=== PATIENT | female | born 1955 | race Caucasian/White ===

== ENCOUNTER 2022-12-27 05:18 | Outpatient (REF) | payer MEDICARE, SELFPAY ==
--- NOTE | ~2022-12-27 | XR_ITS ---
EXAMINATION: XR PELVIS CLINICAL INFORMATION: Pain. COMPARISON: None available. TECHNIQUE: 3 AP views of the pelvis. FINDINGS: There is mild bony demineralization. There is an intact right hip total arthroplasty, without hardware failure or loosening. There is an intact cerclage wire applied to the proximal right femoral shaft. No periprosthetic fracture is noted. The left acetabular joint space is well-maintained. The left femoral head is smooth. The bilateral sacroiliac joints are symmetric and well-maintained. The pubic symphysis is intact. There are pelvic phleboliths. There are incompletely characterized degenerative changes of the lower lumbar spine. XR/XR pelvis 1-2V IMPRESSION: 1. There is an intact right hip total arthroplasty, without hardware failure or loosening noted. 2. No unusual degenerative change is seen of the left hip.
== END 2022-12-27 05:19 | disposition home or self-care (01) ==
LOC: HO.HOSX 05:18
PROVIDERS: Visit Provider Orthopaedic Surgery
DX: M25.551 Pain in right hip (principal); M54.50 Low back pain, unspecified; Z79.899 Other long term (current) drug therapy
CPT/HCPCS: 72170; 99212

== ENCOUNTER 2022-12-27 08:11 | Outpatient (AMB) | payer MEDICARE, SELFPAY ==
--- NOTE | 2022-12-27 08:24 | MHC.OFFVIS ---
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 Pederson for an evaluation of right hip s/p WIL in October of 2021. Patient reports that she has no concerns, here for a yearly check. She states having back issues but is monitored with pain management. The patient was also evaluated by Dr. Camejo from nurse surgery at [facility]. She was told that if her symptoms worsen in the future she would likely need a lumbar fusion to correct her problem. Allergies scopolamine Allergy (Verified 12/27/22 08:27) dizzy, nausea Medication List - Last Reconciled 12/27/22 by Tom Pederson MD celecoxib 200 mg PO DAILY fluticasone propionate 50 mcg/actuation 1 spray intranasal DAILY methocarbamol 500 mg PO TID omeprazole 20 mg PO DAILY sertraline 25 mg PO DAILY sertraline 100 mg PO DAILY [facility] Surgical History (Updated 12/27/22 @ 08:29 by Karrie Monaco [facility]) History of left knee replacement History of right hip replacement History of shoulder surgery Social History Patient Tobacco Use Status: Never used Tobacco Current occupational status: retired Physical Exam Vital Signs: BMI result Body Mass Index 25.2 Const Other: Well-nourished well-developed very friendly female awake alert and oriented x3 in no acute distress Extrem Other: Bilateral lower extremity examination shows good capillary refill, no skin lesions noted, normal sensation light touch Right lower extremity examination shows that her surgical incision is well healed, no erythema, minimal discomfort with range of motion, no tenderness over her bursa Results Reviewed Results Reviewed: X-rays of the patient's right hip taken today show a total hip arthroplasty in good position with no signs of loosening, no acute bony abnormalities Assessment & Plan Assessment & Plan (1) Right hip pain: Code(s): M25.551 - Pain in right hip Plan Ms. Srivastava continues to do well after undergoing right total hip replacement surgery. She will continue with her home exercise program. She does know to take antibiotics before any dental work. She will contact me prior to her follow-up appointment in 6 months should any questions or concerns arise. I will also refer the patient to JANICE Dickerson from neurosurgery for further evaluation of her low back pain. Feel free to call me at any time should questions regarding her orthopedic management arise. I spent 22 minutes in reviewing the patient's records and imaging studies, seeing the patient and documenting in the medical record. Orders: Orders XR pelvis 1-2V Today M25.551 - Pain in right hip Referrals Neurosurgery Referral M54.50 - Low back pain, unspecified Coding Level of Care Code Est Pt Level 2 (98756) Diagnoses Right hip pain M25.551
[2022-12-27 08:26] VITALS: BMI 25.2
== END 2022-12-27 08:56 | disposition home or self-care (01) ==
PROVIDERS: PCP Internal Medicine; Visit Provider Orthopaedic Surgery
DX: M25.551 Pain in right hip (principal)
CPT/HCPCS: 99212

== ENCOUNTER 2023-06-13 09:26 | Outpatient (REF) | payer MEDICARE, SELFPAY ==
--- NOTE | ~2023-06-13 | XR_ITS ---
EXAMINATION: XR LUMBOSACRAL SPINE WITH OBLIQUES CLINICAL INFORMATION: Low back pain unspecified. COMPARISON: AP pelvis December 28, 2022. TECHNIQUE: AP, lateral neutral, flexion and extension views of the lumbar spine. FINDINGS: Levoscoliosis of the lumbar spine. Bones are diffusely demineralized. Degenerative changes in the bilateral sacroiliac joints with asymmetric sclerosis on the left. Facet arthritis in the mid to lower lumbar spine. Multilevel lumbar spondylosis with multilevel loss of disc space height and subchondral sclerosis most notable at L4-L5. Grade 1 anterolisthesis of L4 on L5 with flexion and extension. Mild grade 1 anterolisthesis of L5 on S1. Grade 2 retrolisthesis of L2 on L3 with advanced loss of disc space height and degenerative changes. XR/XR lumbar spine 4V min IMPRESSION: 1. Multilevel lumbar spondylosis most notable at L4-L5 and L2-L3. 2. Facet arthritis in the mid to lower lumbar spine. 3. Degenerative changes in the bilateral sacroiliac joints with asymmetric sclerosis on the left.
== END 2023-06-13 09:27 | disposition home or self-care (01) ==
LOC: HO.HOSX 09:26
PROVIDERS: Visit Provider Orthopaedic Surgery
DX: Z13.89 Encounter for screening for other disorder (principal)

== ENCOUNTER 2023-08-28 08:56 | Outpatient (AMB) | payer MEDICARE, SELFPAY ==
--- NOTE | 2023-08-28 08:59 | HO.SPINEOV ---
Intake Visit Reasons: second opinion for 3 level spine sx Intake Note: Ms. Srivastava is here today c/o Left lower back pain. Supervisor Laboratory Required: No Allergies scopolamine Allergy (Verified 08/28/23 09:04) dizzy, nausea Assessment & Plan Assessment & Plan (1) Degenerative scoliosis: Code(s): M41.50 - Other secondary scoliosis, site unspecified Category: Medical Plan Dear colleague, Thank you for referring Esha Gonzalez to our office today. 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 She reports that her pain recently exacerbated 2 weeks ago without an inciting incident. She states that her pain is severe in nature despite positional changes. She reports that nothing specifically worsens or exacerbates her pain. She reports no shooting pains down her bilateral lower extremities. She states that she has had back pain for the past 30 years. He has been much worse over the course of the last 2 years. She was previously evaluated by Dr. Grover at [facility] who told her that she may need a 3 level spinal fusion. She is currently taking Celebrex to help mitigate her pain alongside gabapentin. She is tried physical therapy without symptom relief, and has been to a chiropractor/engaged in acupuncture multiple times over the last few years. She is currently established with pain management to is scheduled to do a cortisone injection for her and september. She is weary of this because she has had multiple cortisone injections in the past that have not been helpful. PMH: History of right total knee, right total hip, and right bone spur removal of her shoulder. History of appendectomy, tonsillectomy, and oophorectomy. History of osteoporosis, seasonal allergies, GERD, depression. Social hx: Patient does not smoke, reports no substance use. Medications: Gabapentin, methocarbamol, fluticasone, Celebrex, omeprazole, sertraline. Allergies: Scopolamine. Physical exam: The patient has 5/5 strength in her upper and lower extremities. She has no sensational deficits. Her reflexes are 2+ intact. She ambulates with a somewhat antalgic gait and hunches over slightly. She changes position multiple times on exam from standing to sitting to lying down as she states she is in constant pain. (-) Harris's, (-) clonus. Imaging review: MRI of the lumbar spine completed at [facility] shows diffuse spondylosis of the lumbar spine. There is a grade 1 spondylolisthesis at L2-3, and severe central canal and foraminal stenosis at this level. There is severe central canal and foraminal stenosis at L3-4. There is severe collapse of the disc space causing severe central canal and foraminal stenosis, alongside a grade 2 spondylolisthesis at L4-5. X-ray imaging completed in office today shows a degenerative dextroscoliosis with the apex at L3. Redemonstrated spondylolisthesis as described an MRI impression. Impression: Esha Gonzalez is a pleasant 68-year-old female who comes in today with a chief complaint of low back pain that is worsening and severe in nature. She declines any shooting pains down her bilateral lower extremities. She reports this has been ongoing and worsening over the course of the last 2 years. She is failed all attempted conservative measures. After reviewing her history, physical, and imaging Dr. Espino offered the patient a scoliosis correction via lumbar fusion from L2-5. Specifically a Transkambin lumbar interbody fusion from L2-3, and an oblique lumbar interbody fusion from L3-4 and L4-5. The surgery was extensively reviewed with the patient, who is agreeable to proceed. She will need to stop her Celebrex 7 days before surgery. She also will need clearance from her primary care physician including an EKG. Esha Gonzalez was given risk and benefits of surgery including but not limited to infection, hematoma, nerve injury, durotomy, weakness, bowel/bladder injury, persistent pain, as well as the option to continue with conservative treatment and patient wishes to proceed with surgery. They are aware they should stop NSAIDs 7 days prior to surgery. All questions were answered to the best of our ability. If there is anything about this patients medical history that we have overlooked or concerns you have about us proceeding with surgery we would appreciate any input you can offer. Thank you for allowing us to care for your patient. The total time spent with this visit with this patient was 60 minutes reviewing history, physical exam, x-ray, MRI imaging review, and implementation of treatment plan or further diagnostic testing Stephon Espino MD,PhD [facility] Orders: Orders XR lumbar spine 4V min Today M54.50 - Low back pain, unspecified Coding Level of Care Code New Pt Level 5 (26787) Diagnoses Degenerative scoliosis M41.50
== END 2023-08-28 10:42 | disposition home or self-care (01) ==
PROVIDERS: PCP Internal Medicine; Visit Provider Physician Assistant
DX: M41.50 Other secondary scoliosis, site unspecified (principal)
CPT/HCPCS: 99205

== ENCOUNTER → 2023-08-28 08:56 | Outpatient (BNVA) | payer MEDICARE, SELFPAY | PROVIDERS: PCP Internal Medicine; Visit Provider Physician Assistant | DX: M47.816 Spondylosis without myelopathy or radiculopathy, lumbar region (principal); M48.061 Spinal stenosis, lumbar region without neurogenic claudication; M43.16 Spondylolisthesis, lumbar region; M41.50 Other secondary scoliosis, site unspecified | CPT/HCPCS: 72110; 99202 ==

== ENCOUNTER 2023-10-15 06:11 | Inpatient (IN) | payer MEDICARE, SELFPAY ==
[2023-10-01 10:52] VITALS: BP 148/85; PULSE 65; RESP 18; O2SAT 98; BMI 25.2
[2023-10-15] VITALS (37 sets, daily range): BP systolic 88–141; BP diastolic 35–78; PULSE 72–94; RESP 15–20; TEMP 36.2–36.8; O2SAT 94–100; BMI 25.8; BMI 27.6
--- NOTE | ~2023-10-15 | CT_ITS ---
EXAMINATION: CT ANGIOGRAM OF THE CHEST WITH AND WITHOUT CONTRAST (CT PULMONARY ANGIOGRAM FOR PE) CLINICAL INFORMATION: Reason for Exam hypoxia, dyspnea, postop COMPARISON: None available. TECHNIQUE: Prior to contrast administration, noncontrast localization images were obtained. Subsequently, multidetector volumetric imaging was performed from the thoracic inlet to below the diaphragms following the administration of 65 mL Omnipaque 350 intravenous contrast. No contrast reaction reported Sagittal, coronal, and MIP oblique sagittal reformatted images were obtained on the CT workstation, uploaded to PACS, and reviewed. This CT examination was performed using dose optimization techniques as appropriate, variously including the following: *Automated exposure control *Adjustment of mA and/or kV according to patient size (this includes techniques or standardized protocols for targeted exams where dose is matched to indication/reason for exam; i.e. extremities or head) *Use of iterative reconstruction technique Total exam dose-length product 91 mGy-cm FINDINGS: QUALITY OF STUDY/CONTRAST BOLUS: Satisfactory. PULMONARY ARTERIES: No pulmonary emboli. THORACIC AORTA: No aneurysm. LUNG: No focal consolidation, nodules or masses. PLEURA: No pleural effusion or pneumothorax. MEDIASTINUM: Normal heart size. No pericardial effusion. No hilar or mediastinal lymphadenopathy. No evidence of septal bowing or right heart strain. Hypoenhancing left inferior 1.3 cm thyroid nodule. CORONARY ARTERY CALCIFICATION: None visualized on this study. CHEST WALL/AXILLA: No axillary or internal mammary lymphadenopathy. OSSEOUS STRUCTURES: No acute or suspicious osseous abnormality. UPPER ABDOMEN: Unremarkable. No reflux of contrast into the hepatic veins to suggest elevated right heart pressures. CT/CT angio chest PE protocol IMPRESSION: 1. No pulmonary embolus. 2. Left inferior 1.3 cm thyroid nodule. Consider routine thyroid ultrasound for further evaluation if warranted. VTE: negative.
--- NOTE | ~2023-10-15 | FL_ITS ---
EXAMINATION: XR FLUOROSCOPY WITH IMAGES CLINICAL INFORMATION: L2-L3 Trans-Kambin, L3-L5 OLIF. COMPARISON: Lumbar spine radiographs 08/28/2023 TECHNIQUE: Fluoroscopy Supervised By: Dr. Dipak Espino Fluoroscopy Time: 3.58 minutes Cumulative Dose: 100.96 mGy-cm DAP: 34.245 Gy-cm2 Images: 8. FINDINGS: Eight images demonstrate placement of posterior spinal hardware. Please see Dr. Espino' note for complete details. FL/FL guidance in OR IMPRESSION: Fluoroscopy and spot films provided during lumbar spine surgery.
--- NOTE | ~2023-10-15 | CT_ITS ---
EXAMINATION: CT ABDOMEN AND PELVIS WITH CONTRAST CLINICAL INFORMATION: Recent surgery. Question of hemorrhage COMPARISON: CT chest same date. TECHNIQUE: Multidetector volumetric images were obtained from the superior aspect of the liver through the pubic symphysis following administration 85 mL of Omnipaque 350 intravenous contrast. Sagittal and coronal reformatted images were obtained on the technologist's workstation. Oral contrast: No This CT examination was performed using dose optimization techniques as appropriate, variously including the following: *Automated exposure control *Adjustment of mA and/or kV according to patient size (this includes techniques or standardized protocols for targeted exams where dose is matched to indication/reason for exam; i.e. extremities or head) *Use of iterative reconstruction technique DLP: 411 mGy-cm FINDINGS: LUNG BASES: Minor bibasilar atelectatic change LIVER, GALLBLADDER, AND BILIARY TREE: The left lobe of the liver is transverse and extends into the left upper quadrant. No focal hepatic mass. There is no intrahepatic biliary dilatation. The gallbladder is unremarkable with no evidence of radiopaque gallstones, gallbladder wall thickening, or obvious pericholecystic inflammatory changes. PANCREAS: Unremarkable. SPLEEN: Unremarkable. ADRENAL GLANDS: Unremarkable. KIDNEYS AND URETERS: The kidneys are normal in size, shape, and attenuation. No hydronephrosis, hydroureter, or calculi seen. No perinephric stranding. BLADDER: Unremarkable. GASTROINTESTINAL TRACT: Moderate stool burden. No bowel obstruction or right or left lower quadrant inflammatory change. Likely postprocedural ileus in the left mid abdomen. ABDOMINAL WALL: Abnormal. There is extensive subcutaneous air is seen in the central and left anterior abdominal wall extending into the adjacent musculature likely due to the patient's recent lumbar spine procedure. There is some adjacent soft tissue stranding and fluid, likely postsurgical but I do not see an organizing hematoma or drainable collection. A few pockets of air are seen in the right mid to lower abdomen near the psoas musculature, likely postprocedural. LYMPH NODES: Normal. VASCULAR: The aorta is atherosclerotic but nonaneurysmal. PELVIC VISCERA: Unremarkable. OSSEOUS STRUCTURES: Extensive streak artifact from the lumbar spine hardware. The patient had a procedure in the OR for the placement of surgical hardware in the lumbar spine on 10/15/2023. There is spondylitic degenerative change in the lower thoracic and upper lumbar spine. No fracture. CT/CT abdomen pelvis w IV con IMPRESSION: Extensive postsurgical change in the left anterior subcutaneous tissues and adjacent musculature with likely reactive ileus however I do not see evidence of a retroperitoneal bleed or drainable collection. Fleischner guidelines were followed.
[2023-10-15] MEDS: methocarbamoL 750 MG TABLET PO ×2 (06:24→15:00)
[2023-10-15] MEDS: Lactated Ringers 1,000 ML 100 ML IVCONT (06:43)
--- NOTE | 2023-10-15 07:22 | PC.NURSE ---
Addendum entered by Doretha Galicia 10/15/23 07:25: EDIT: (does not like how it makes her feel). Original Note: Patient in preop. Dr. Espino at bedside. Made aware that patient took 100mg Gabapentin PO at home this AM, preop ordered dose held. Dr. Bryan at bedside. Made aware that patient wakes up from anesthesia extremley weepy, history of PONV, and requests not to have any Percocet ordered (does not like how it makes her feel0
--- NOTE | 2023-10-15 07:25 | P.CONAN_ITS ---
Documented by User: Sofi Izquierdo NP 10/11/23 12:15 HPI - Anesthesia Eval Consult details Narrative: 68yo F for L2-3 Transkambin Lumbar Interbody Fusion, L3-4,L4-5 Oblique Lumbar Interbody Fusion Medically optimized per PCP [facility] Active Problems Active Problems: All Active Problems Degenerative scoliosis (Acute) Low back pain (Acute) Right hip pain (Acute) Past Medical History Medical History (Updated 10/01/23 @ 10:28 by Radha Espinoza RN) Osteopenia Asthma Elevated cholesterol GERD (gastroesophageal reflux disease) Depression DJD (degenerative joint disease) Anxiety Back pain Surgical History Surgical History History of carpal tunnel surgery of right wrist Hx of unilateral oophorectomy H/O colonoscopy Hx of breast biopsy Hx of appendectomy Hx of tonsillectomy History of esophagogastroduodenoscopy (EGD) History of left knee replacement History of shoulder surgery History of right hip replacement Social History Social History (Updated 12/27/22 @ 08:29 by ELISABETH Patel) Are you a primary childcare center administrator to a significant other at home: No Do you presently have visiting nurse or other home services: No Patient Tobacco Use Status: Never used Tobacco Use of substances other than those prescribed or required for medical reasons: No Have you been hit, kicked, punched, or otherwise hurt by someone within the past year? If so, by whom?: No Are you DNR?: No Advance Directives: No Advance Directives Information Provided: Yes Advance Directives on File: No Recently lost weight without trying: No Eating poorly because of decreased appetite: No Nutrition Risks: No Nutritional Risk Patient : No : No Poor oral hygiene: Yes (crowns bilaterally) Current occupational status: retired [employer] Allergies Allergy/AdvReac Type Severity Reaction Status Date / Time scopolamine Allergy Intermediate dizzy, Verified 10/15/23 06:10 nausea Home Medications ?Medication ?Instructions ?Recorded ?Confirmed ?Last Taken ?Type omeprazole 20 mg capsule,delayed 20 mg PO DAILY 12/27/22 10/15/23 10/15/23 History release sertraline 100 mg tablet 100 mg PO DAILY 12/27/22 10/15/23 10/15/23 History sertraline 25 mg tablet 25 mg PO DAILY 12/27/22 10/15/23 10/15/23 History gabapentin 100 mg capsule 200 mg PO TID 09/27/23 10/15/23 10/15/23 History 100 mg celecoxib 200 mg capsule 200 mg PO DAILY 10/15/23 10/15/23 10/08/23 History Exam Height,Weight and Vital Signs: Height 5 ft 4 in Weight 66.678 kg Last Vital Signs Pulse 65 10/01/23 10:52 Resp 18 10/01/23 10:52 BP 148/85 H 10/01/23 10:52 Pulse Ox 98 10/01/23 10:52 O2 Del Method Room Air 10/01/23 10:52 Pertinent Lab Results Pertinent Lab Results: Laboratory Tests 10/01/23 11:21 Blood Type B Positive Antibody Screen NEGATIVE CBC and BMP 09/2023 from outside facility WNL Narrative Narrative: EKG 09/2023 from outside facility NSR Assessment and Plan Assessment Anesthesia Assessment: Chart Reviewed Documented by User: Hailey Bryan DO 10/15/23 07:28 HPI - Anesthesia Eval Consult details Narrative: 68yo F for L2-3 Transkambin Lumbar Interbody Fusion, L3-4,L4-5 Oblique Lumbar Interbody Fusion Medically optimized per PCP PONV. Also wakes up weeping after anesthesia. [facility] Past Medical History Medical History (Updated 10/01/23 @ 10:28 by Radha Espinoza RN) Osteopenia Asthma Elevated cholesterol GERD (gastroesophageal reflux disease) Depression DJD (degenerative joint disease) Anxiety Back pain Family History Family history of problems with anesthesia: No Surgical History Surgical History History of carpal tunnel surgery of right wrist Hx of unilateral oophorectomy H/O colonoscopy Hx of breast biopsy Hx of appendectomy Hx of tonsillectomy History of esophagogastroduodenoscopy (EGD) History of left knee replacement History of shoulder surgery History of right hip replacement History of Problems with Anesthesia: Yes (PONV) Social History Social History (Updated 12/27/22 @ 08:29 by Karrie Monaco [facility]) Are you a primary childcare center administrator to a significant other at home: No Do you presently have visiting nurse or other home services: No Patient Tobacco Use Status: Never used Tobacco Use of substances other than those prescribed or required for medical reasons: No Have you been hit, kicked, punched, or otherwise hurt by someone within the past year? If so, by whom?: No Are you DNR?: No Advance Directives: No Advance Directives Information Provided: Yes Advance Directives on File: No Recently lost weight without trying: No Eating poorly because of decreased appetite: No Nutrition Risks: No Nutritional Risk Patient : No : No Poor oral hygiene: Yes (crowns bilaterally) Current occupational status: retired Meds Allergies Allergy/AdvReac Type Severity Reaction Status Date / Time scopolamine Allergy Intermediate dizzy, Verified 10/15/23 06:10 nausea Home Medications ?Medication ?Instructions ?Recorded ?Confirmed ?Last Taken ?Type omeprazole 20 mg capsule,delayed 20 mg PO DAILY 12/27/22 10/15/23 10/15/23 History release sertraline 100 mg tablet 100 mg PO DAILY 12/27/22 10/15/23 10/15/23 History sertraline 25 mg tablet 25 mg PO DAILY 12/27/22 10/15/23 10/15/23 History gabapentin 100 mg capsule 200 mg PO TID 09/27/23 10/15/23 10/15/23 History 100 mg celecoxib 200 mg capsule 200 mg PO DAILY 10/15/23 10/15/23 10/08/23 History Exam Exam Date and Time: October 15, 2023 0722 Height,Weight and Vital Signs: Height 5 ft 4 in Weight 66.678 kg Last Vital Signs Pulse 65 10/01/23 10:52 Resp 18 10/01/23 10:52 BP 148/85 H 10/01/23 10:52 Pulse Ox 98 10/01/23 10:52 O2 Del Method Room Air 10/01/23 10:52 Height 5 ft 4 in Weight 68.13 kg Vital Signs Pulse Rate 65 10/01/23 10:52 Respiratory Rate 18 10/01/23 10:52 Blood Pressure 148/85 H 10/01/23 10:52 Pulse Oximetry 98 10/01/23 10:52 Oxygen Delivery Method Room Air 10/01/23 10:52 Temperature 97.1 F 10/15/23 06:18 Pulse Rate 73 10/15/23 06:18 Respiratory Rate 16 10/15/23 06:18 Blood Pressure 141/78 H 10/15/23 06:18 Pulse Oximetry 99 10/15/23 06:18 Oxygen Delivery Method Room Air 10/15/23 06:18 Airway Mallampati Class: I TM Dist: >3cm Neck ROM: Full Loose/Missing/Broken Teeth: No (patient denies any loose or broken teeth) Heart: S1S2 Lungs: CTAB Assessment and Plan Assessment Anesthesia Assessment: Anesthesia Plan Discussed and Chart Reviewed Final Anesthetic Review Family History of Problems with Anesthesia: No History of Problems with Anesthesia: Yes (PONV) NPO: Yes ASA Class: II Final Preanesthetic Review: No Changes in Pt Med Stat, Meds/Allgs Chart Reviewed, Consent Obtained/Reviewed and Anes Risks/Benef Reviewed Patient Risk: Low Procedure Risk: Intermediate Anesthetic Plan Anesthetic Plan: GA and Agree w/ Assess. and Plan Disposition: Standard PACU
--- NOTE | 2023-10-15 07:25 | MHC.SHP ---
Pre-Procedural Eval Section A - 24 Hr Update-Section A only Date of Service: 10/15/23 The patient is an INPATIENT: No Changes since office visit: No Cold of Flu in the past 2 weeks, No New Medical Problems, No Changes in Medication and No Patient answered all questions The patient has been examined within 24 hours of the surgical procedure. The History & Physical has been completed within 30 days and I have reviewed it.: No Section B - Complete if H&P > 30 days Chief Complaint: s/p L2-5 lumbar fusion Allergies: Allergies Allergy/AdvReac Type Severity Reaction Status Date / Time scopolamine Allergy Intermediate dizzy, Verified 10/15/23 06:10 nausea Review of Systems Sugical H&P ROS: Negative: Constitution, Cardiovascular, Respiratory, Neurological, Psychiatric, Hem-Onc, Allergic/Immunologic, Gastrointestinal, Genitourinary, Musculoskeletal, Integumentary, Endocrine and Eyes/Ears/Nose/Throat Exam Surgical H&P Exam: Normal: HEENT, Normal: Heart, Normal: Lungs, Normal: Extremities, Normal: Abdomen, Normal: Skin and Normal: Neurological (patient awake, alert, oriented x 3 ) Plan Diagnosis/Plan: Unchanged L2-5 oblique/transkambin interbody fusion Time Spent With Patient Time: Total time managing care of this patient today _5___ minutes.
--- NOTE | 2023-10-15 12:23 | W.PM.OPN ---
Operative Note Operative Note Date of Service: 10/15/23 Narrative: Preop Diagnosis: 1.) Lumbar degenerative scoliosis and L4-5 spondylolisthesis 2.) Chronic back pain Procedure: 1) L2-3, L3-4 and L4-5 discectomy, arthrodesis and implantation cage through an anterolateral, retroperitoneal approach 2) L2-L5 posterior instrumented fusion 3) allograft 4) injection of 10 cc of Exparel at the bilateral L3 transverse process for a muscular erector spinae block and additional Exparel in paravertebral tissue for postop management 5) neuro monitoring Consent Informed Consent was obtained for this operation. I have explained the nature, purpose and benefits of the operation. I have discussed the risks and benefit of the operation including possible complications or adverse events with patient/family. Alternative(s) were discussed with the patient with their relative benefits and risks as well as the consequences of not accepting the operation were included in obtaining consent. Surgeon: STANLEY GREGORY MD, PHD Procedure Assisted By: christopher Dickerson Description of Procedure This 68-year-old female suffering from chronic back pain due to lumbar degenerative scoliosis. The patient was offered an oblique lumbar interbody fusion L2-3, L3-4 and L4-5. The procedure complications were explained. The patient was consented. The patient was brought to the operating room and endotracheally intubated. The patient was turned in a lateral position with the left side up. Prep and drape was done followed by timeout. A small incision was made in the left lower abdominal quadrant. The muscle fascia was opened after which the 3 muscle layer was split to enter the retroperitoneal space. Dilators were docked in the anterior one third of the L4-5 disc space followed by a retractor. The retractor was opened. The L4-5 disc space was exposed. An annulotomy was done after which an elevator [place] was used to release the disc material from its endplates and to perforate the contralateral side. A partial discectomy was done. An 8 mm, height trial implant was inserted. The discectomy was completed. The endplates were prepared. An 45 x 8 mm with serum degree lordosis 4 web cage filled with allograft was inserted into the disc space under fluoroscopic guidance. This resulted in amish of the disc height and partial reduction of the spondylolisthesis. The retractor was removed. I tissue from the cage and during that maneuver an arterial bleeding occurred. I enlarged the incision and I was able to locate the bleeder, distal from L4 foramen and must be a segmental artery. I was able to coagulate the artery. I covered it with Surgiflo, Gelfoam and [place] Seal. Dr. Wheatley, vascular surgeons had a peak at the bleeding site and agreed that no further maneuvers were required. Then attention was turned to the L3-4 disc space. Dilators were docked in the anterior 1/3 followed by a retractor. At initial diskectomy was done followed by releasing of the disc material from the endplates with an elevator [place]. A thorough diskectomy was done. An 8 mm and a 10 mm trial implant or used. More diskectomy was done after which a 45 x 10 and 6 degree lordosis 4 web cage was inserted into the disc space under fluoroscopic guidance. The final level was L2-L3. I made a separate incision. I went in between the 11th and 12th rib and entered the retroperitoneal space to end up at the L2-3 disc space. Sequential dilators were inserted followed by a retractor. The disc space was exposed. An annulotomy was done followed by release of the disc material from the endplates with an elevator [place]rales. An 8 mm trial was inserted. The diskectomy was completed and the endplates were prepared after which 45 x 8 mm NC 0 degree lordosis 4 web cage was inserted into the disc space under fluoroscopic guidance. The degenerative scoliosis curve in the coronal plane was near completely corrected. Hemostasis was done. The incisions were closed in 2 layers. Steri-Strips used to approximate incisions. An OpSite with Tegaderm was used to cover the incisions. This marked first part of the procedure. The patient was turned prone on the Jim spine table. 2C arms were installed for fluoroscopy. Prep and drape was done followed by a second timeout. A total of 3 paramedian incisions made bilaterally (total 6) lateral from the L2-L5 pedicles bilaterally.. The muscle fascia was opened after which the muscle layer was split bluntly to expose the posterolateral gutter. The following steps were taken. A pediguard tap was used to create a transpedicular trajectory into the vertebral body. A K wire was placed. A specially designed instrument was advanced over the K wire to decorticate the posterolateral gutter in preparation for the posterolateral fusion. A pedicle screw was advanced over the K wire and the K wire was removed. The steps were done for the bilateral L2, L3, L4 and L5 pedicles. A total of 8 screws were placed with a diameter of 5.5 x 40 mm in L2 pedicles, a 5.5 x 45 mm in the bilateral L3 and L4 pedicles and a 6.5 x 45 mm in the bilateral L5 pedicles. Pedicle screws were connected with 110 mm zonia bilaterally and locked down with locking caps. The extension towers were removed. The posterolateral gutter was filled with allograft to complete the posterolateral L2-L5 fusion Hemostasis was done and the incision was closed in 2 layers. Steri-Strips were used to approximate the incision. An OpSite were taken and was used to cover the incision. All sponge and needle counts were correct. Patient was extubated and transferred in stable is to recovery room. The insertion of the pedicle screws was done with the aid of neuro monitoring and no abnormalities were seen and stimulation of the screws showed values of above 20 mA. Anesthesia: General Estimated Blood Loss (ml): 450 mL Duration of Surgery: 4hr 20 min Complications: None Postoperative Plan: Admit to inpatient for observation
[2023-10-15] MEDS: HYDROmorphone HCl 0.5 MG/0.5 ML SYRINGE IVPUSH ×3 (13:34→16:53)
[2023-10-15] MEDS: Haloperidol Lactate 5 MG/ML VIAL IVPUSH (13:39)
[2023-10-15] MEDS: Gabapentin 100 MG CAPSULE 200 MG PO ×2 (15:14→20:03)
[2023-10-15] MEDS: oxyCODONE HCl Immed Release 5 MG TABLET PO (15:53)
[2023-10-15] MEDS: Acetaminophen 1,000 MG/100 ML PIGGYBACK 400 MG IV ×2 (16:57→22:28)
[2023-10-15] MEDS: ceFAZolin Sodium/Dextrose,Iso 2 GM/50 ML PIGGYBACK IV ×2 (18:25→23:45)
--- NOTE | 2023-10-15 18:51 | PHA.MEDREC ---
Pharmacy Consult ? Medication Reconciliation Pharmacy has completed the medication reconciliation. Spoke to patient to confirm med list. patient says she stopped celebrex 200 mg daily. she also stated she some times takes Gabapentin 100mg bid and 200mg at bedtime.
[2023-10-15] MEDS: Docusate Sodium 100 MG CAPSULE PO (20:04)
--- NOTE | 2023-10-15 20:30 | PC.NURSE ---
This RN assumed care at 1900, Pt s/p L2-L5 lumbar fusion today. Lower back dressing, & left lower abd x2 Dsg, all D/I. BSx4 hypoactive throughout abd round, slight guarding to left side. Per Pt pain is more in the front left site, than back, 8/10 pain at the moment. Meds given per JUL. Respirations even an unlabored. Pt ambulated with walker, 1x assist to the bathroom and voided, steady gait noted. No apparent distress noted. Call monet with in reach.
[2023-10-15] MEDS: HYDROmorphone HCl 1 MG/ML SYRINGE IVPUSH (20:41)
[2023-10-15] MEDS: ondansetron HCL 4 MG/2 ML VIAL IVPUSH (20:42)
[2023-10-16] VITALS (9 sets, daily range): BP systolic 100–144; BP diastolic 48–61; PULSE 75–81; RESP 16–21; TEMP 36–36.3; O2SAT 91–99
--- NOTE | 2023-10-16 | ECG_ITS ---
Test Reason : Syncope Blood Pressure : / mmHG Vent. Rate : 073 BPM Atrial Rate : 073 BPM P-R Int : 156 ms QRS Dur : 078 ms QT Int : 400 ms P-R-T Axes : 063 034 070 degrees QTc Int : 440 ms Normal sinus rhythm Normal ECG When compared with ECG of 16-OCT-2023 11:32, No significant change was found Referred By: Bridger Moreira Electronically Signed By:LEANNE PETERSON
[2023-10-16] MEDS: oxyCODONE HCl Immed Release 5 MG TABLET 10 MG PO (00:40)
[2023-10-16] MEDS: HYDROmorphone HCl 1 MG/ML SYRINGE IVPUSH ×6 (02:12→21:09)
[2023-10-16] MEDS: Acetaminophen 1,000 MG/100 ML PIGGYBACK 400 MG IV ×4 (04:22→22:51)
[2023-10-16] MEDS: ondansetron HCL 4 MG/2 ML VIAL IVPUSH ×2 (04:57→14:11)
[2023-10-16] MEDS: ceFAZolin Sodium/Dextrose,Iso 2 GM/50 ML PIGGYBACK IV (05:36)
--- NOTE | 2023-10-16 07:35 | HO.NEURO.PN ---
Neurosurgery Operative Note Date of Service: 10/16/23 Narrative: POD: 1 Procedure: L2-5 OLIF Esha Gonzalez was seen sitting upright in bed on this morning. She states that she has been up out of bed, utilizing the bathroom, and eating a regular diet. She reports she was in quite a bit of back pain last night, but denies any shooting leg pains at this time. Her back pain has been well controlled with Dilaudid per nursing report. Patient states this medication works very well. States the Oxycodone did not help. She asked several questions regarding her operation and post-operative course which we answered to the best of our ability. Afebrile, vital signs stable. Full strength 5/5 LE. Back dressings have some staining without signs of hematoma. No active sanguineous drainage. Area is dry. Plan: Esha Gonzalez is POD:1 s/p L2-5 OLIF. She had quite a bit of pain last night, however despite this she has been up out of bed ambulating to the bathroom and utilizing her walker as best she can. She is tolerating a diet and otherwise doing well. No morton. Patient will remain on for continued surgical site monitoring, pain management, and further evaluation. Stephon Espino MD,PhD [facility]
[2023-10-16] MEDS: Docusate Sodium 100 MG CAPSULE PO ×2 (07:53→20:04)
[2023-10-16] MEDS: Sertraline HCL 25 MG TABLET PO (07:53)
[2023-10-16] MEDS: Sertraline HCL 100 MG TABLET PO (07:53)
[2023-10-16] MEDS: Omeprazole 20 MG CAPSULE.DR PO (07:53)
[2023-10-16] MEDS: Gabapentin 100 MG CAPSULE 200 MG PO ×3 (07:53→20:04)
[2023-10-16] MEDS: HYDROmorphone HCl 2 MG TABLET 1 MG PO (07:54)
--- NOTE | 2023-10-16 10:05 | HO.POSTANES ---
Post Anesthesia Evaluation Post Anesthesia Evaluation Date of Service: 10/16/23 Vital Signs: Vital Signs Temp Pulse Resp BP Pulse Ox O2 Del Method 10/16/23 08:00 96.8 F 77 18 100/52 L 91 L Room Air 10/16/23 03:39 97.1 F 79 16 108/53 L 93 Room Air 10/15/23 23:46 97.8 F 72 16 104/55 L 100 Room Air Anesthesia: General Endotracheal-GETA Mental Status: Awake Pain Control: Satisfactory Nausea/Vomiting: None Hydration: Adequate Anesthesia-Related Issues: No Anes. Related Issues
--- NOTE | 2023-10-16 10:54 | MHC.CM.PN ---
pt lives with is independent has a ride home will not need servies when dcd dc plan home no servies
[2023-10-16 11:32] LABS: Glucose, Whole Blood 136 mg/dL (60-115)
[2023-10-16 11:43] LABS: MANUAL DIFF FLAG NO
[2023-10-16 11:47] LABS: Basophils Percent Auto 0.3 % (0-2); Eosinophils Percent Auto 0.2 % (0-4); Hematocrit 27.7 % (37.0-47.0); Hemoglobin 9.5 g/dl (12.0-16.0); Imm Gran Abs Auto 0.02 X10*3/uL (0.00-0.03); Imm Gran Pct Auto 0.3 % (0.0-0.4); Lymphocytes Absolute Auto 1.3 X10*3/uL (1.2-4.9); Lymphocytes Percent Auto 20.8 % (20-40); Mean Corpuscular HGB Conc 34.3 g/dl (31.0-35.0); Mean Corpuscular Hemoglobin 31.6 pg (27.0-33.0); Mean Platelet Volume 8.3 fL (9.4-12.3); Monocytes Absolute Auto 0.5 X10*3/uL (0.1-1.2); Monocytes Percent Auto 8.3 % (2-11); Neutrophils Absolute Auto 4.3 x10*3/uL (2.0-8.3); Neutrophils Percent Auto 70.1 % (45-73); Platelet Count 161 X10*3/uL (160-400); Red Blood Count 3.01 X10*6/uL (4.20-5.50); Red Cell Distribution Width 12.7 % (11.0-16.0); White Blood Count 6.1 X10*3/uL (4.8-10.8)
[2023-10-16 11:56] LABS: D Dimer High Sensitivity 883 NG/ML
[2023-10-16 11:58] LABS: Anion Gap 12 (12-20); Blood Urea Nitrogen 10 mg/dL (9-16); Calcium 8.5 mg/dL (8.4-10.2); Carbon Dioxide 26 mmol/L (22-29); Chloride 96 mmol/L (96-108); Creatinine Clr Calc Pharmacy 78.6; Estimated Glomerular Filt Rate > 60; Glucose Random 169 mg/dL (60-115); Potassium 4.5 mmol/L (3.3-5.1); Sodium 129 mmol/L (135-145)
[2023-10-16] MEDS: Albuterol/Iprat 2.5/0.5MG 3 ML AMPUL.NEB INHALE (11:59)
[2023-10-16 12:05] LABS: B Type Natriuretic Peptide 39 pg/mL (<100)
[2023-10-16] MEDS: iohexoL 350 MG/ML 75 ML INFUS..BTL 65 ML IV (13:51)
--- NOTE | 2023-10-16 14:32 | P.CONHOSP_ITS ---
History of Present Illness Data of Consult Service Date: 10/16/23 Primary Care Provider: JANICE Juárez [facility] Reason for consult: syncope 68yo F with lumbar degenerative scoliosis and L4-5 spondylolisthesis who underwent L2-L5 posterior fusion yesterday (10/15/23) who has been complaining of severe postoperative pain and then had a 5-second witnessed syncopal episode in the bathroom with immediate return of consciousness. An WRECKING SUPERVISOR was called. She was transferred to her bed and complained of dyspnea. She was hypoxic to the low 80s and placed on Oxymask . BP was 114/61 and pulse 84. POC BG was normal. She was given 250cc of NS and an albuterol neb. She endorses a history of postviral asthma attacks. She was weaned off O2. She denies any chest pain. No cough. EKG showed NSR with rate of 73 and no ischemic changes. D-dimer elevated to 883. Also Hb 9.5 with MCV 92. Na 129. BNP 39. Review of Systems 2 Review of Systems: Yes all other systems are reviewed and are negative [facility] Medical History Osteopenia Asthma Elevated cholesterol GERD (gastroesophageal reflux disease) Depression DJD (degenerative joint disease) Anxiety Back pain Surgical History History of carpal tunnel surgery of right wrist Hx of unilateral oophorectomy H/O colonoscopy Hx of breast biopsy Hx of appendectomy Hx of tonsillectomy History of esophagogastroduodenoscopy (EGD) History of left knee replacement History of shoulder surgery History of right hip replacement Social History Household Members: Spouse Housing: House Are you a primary date night caregiver to a significant other at home: No Do you presently have visiting nurse or other home services: No Patient Tobacco Use Status: Never used Tobacco Use of substances other than those prescribed or required for medical reasons: No Currently Displaying Signs/Symptoms of Drug Intoxication Withdrawal: No Have you been hit, kicked, punched, or otherwise hurt by someone within the past year? If so, by whom?: No Do you feel safe in your current relationship?: Yes Is there a partner from a previous relationship who is making you feel unsafe now?: No Jainism Healthcare Practices: Yazidism Are you DNR?: No Advance Directives: No Advance Directives Information Provided: Yes Advance Directives on File: No Recently lost weight without trying: No Eating poorly because of decreased appetite: No Nutrition Risks: No Nutritional Risk Patient : No : No Poor oral hygiene: No service: No Current occupational status: retired Meds Allergies Allergy/AdvReac Type Severity Reaction Status Date / Time scopolamine Allergy Intermediate dizzy, Verified 10/15/23 06:10 nausea Active Medications: Current Medications Docusate Sodium (Docusate Sodium 100 Mg Capsule) 100 mg PO BID [facility] Last Admin: 10/16/23 07:53 Dose: 100 mg Gabapentin (Gabapentin 100 Mg Capsule) 200 mg PO TID [facility] Last Admin: 10/16/23 07:53 Dose: 200 mg Hydromorphone HCl (Hydromorphone Hcl 1 Mg/Ml Syringe) 1 mg IVPUSH Q3H PRN; Protocol PRN Reason: Pain, Severe (Pain Scale 7-10) Last Admin: 10/16/23 14:12 Dose: 1 mg Acetaminophen (Ofirmev) 1,000 mg in 100 mls @ 400 mls/hr IV Q6H [facility] Last Infusion: 10/16/23 11:18 Dose: Infused Methocarbamol (Methocarbamol 750 Mg Tablet) 750 mg PO TID PRN PRN Reason: Muscle Spasm Last Admin: 10/15/23 15:00 Dose: 750 mg Omeprazole (Omeprazole 20 Mg Capsule.Dr) 20 mg PO DAILY [facility] Last Admin: 10/16/23 07:53 Dose: 20 mg Ondansetron HCl (Ondansetron Hcl 4 Mg/2 Ml Vial) 4 mg IVPUSH Q8H PRN PRN Reason: Nausea and Vomiting Last Admin: 10/16/23 14:11 Dose: 4 mg Sertraline HCl (Sertraline Hcl 100 Mg Tablet) 100 mg PO DAILY [facility] Last Admin: 10/16/23 07:53 Dose: 100 mg Sertraline HCl (Sertraline Hcl 25 Mg Tablet) 25 mg PO DAILY [facility] Last Admin: 10/16/23 07:53 Dose: 25 mg Home Medications ?Medication ?Instructions ?Recorded ?Confirmed ?Last Taken ?Type omeprazole 20 mg capsule,delayed 20 mg PO DAILY@0630 12/27/22 10/15/23 10/15/23 History release sertraline 100 mg tablet 100 mg PO DAILY 12/27/22 10/15/23 10/15/23 History sertraline 25 mg tablet 25 mg PO DAILY 12/27/22 10/15/23 10/15/23 History gabapentin 100 mg capsule 200 mg PO TID 09/27/23 10/15/23 10/15/23 History 100 mg atorvastatin 20 mg tablet 20 mg PO DAILY 10/15/23 10/15/23 10/15/23 History Physical Exam 2 Vital Signs and Narrative: Vital Signs: Last Vital Signs Temp 96.8 F 10/16/23 08:00 Pulse 81 10/16/23 12:05 Resp 20 10/16/23 12:05 BP 116/56 L 10/16/23 11:54 Pulse Ox 98 10/16/23 11:54 O2 Del Method Room Air 10/16/23 11:54 O2 Flow Rate 6 10/16/23 11:27 BMI result Body Mass Index 27.6 Results Labs 10/16/23 11:39 10/16/23 11:39 Labs: Laboratory Results - last 24 hr 10/01/23 10/16/23 10/16/23 11:21 11:28 11:39 MCV 92.0 MCH 31.6 MCHC 34.3 RDW 12.7 Plt Count 161 MPV 8.3 L Immature Gran % (Auto) 0.3 Neut % (Auto) 70.1 Lymph % (Auto) 20.8 [place] % (Auto) 8.3 Eos % (Auto) 0.2 Baso % (Auto) 0.3 Lymph # (Auto) 1.3 [place] # (Auto) 0.5 Eos # (Auto) 0.0 Baso # (Auto) 0.0 Abs Immat Gran (auto) 0.02 Absolute Neuts (auto) 4.3 Absolute Nucleated RBC 0.000 Nucleated RBC % (auto) 0.0 D-Dimer High Sensitivty 883 Anion Gap 12 Estim Creat Clear Calc 78.6 Estimated GFR > 60 POC Glucose 136 H Random Glucose 169 H Calcium 8.5 B-Natriuretic Peptide 39 Crossmatch See Detail Assessment and Plan (1) Syncope: Status: Acute Plan 68yo F who is POD#1 from L2-L5 posterior fusion yesterday and had a brief witnessed syncopal episode with immediate return of consciousness. WRECKING SUPERVISOR was called. She was transiently hypoxic and complains of dyspnea. syncope - likely vasovagal; was given 250 mL normal saline; continue to monitor clinically dyspnea - transiently hypoxic and D-dimer high, though this could be due to postoperative state; obtained CTA, which was negative for PE. Pt thinks she had a brief asthma flare but I think it was more anxiety than anything else. hypoNa - recheck Na in AM; could be SIADH from pain; appears euvolemic; if worsens, may need to fluid-restrict and workup with urine studies normocytic anemia - recheck H+H in AM along with iron studies/B12/FA postop pain - continue IV APAP, prn IV hydromorphone + prn methocarbamol chronic pain - continue gabapentin mood disorder - continue sertraline VTE ppx - SCDs Thank you for this consultation. We will continue to follow the patient while they are admitted to your service.
[2023-10-16] MEDS: methocarbamoL 750 MG TABLET PO (15:43)
[2023-10-17] VITALS (10 sets, daily range): BP systolic 98–123; BP diastolic 53–59; PULSE 81–84; RESP 16–20; TEMP 36–36.4; O2SAT 92–97
[2023-10-17] MEDS: ondansetron HCL 4 MG/2 ML VIAL IVPUSH ×2 (01:09→09:24)
[2023-10-17] MEDS: methocarbamoL 750 MG TABLET PO ×3 (03:07→20:06)
[2023-10-17] MEDS: Acetaminophen 1,000 MG/100 ML PIGGYBACK 400 MG IV ×2 (04:53→12:02)
[2023-10-17 07:12] LABS: Hematocrit 25.5 % (37.0-47.0); Hemoglobin 8.5 g/dl (12.0-16.0); Mean Corpuscular HGB Conc 33.3 g/dl (31.0-35.0); Mean Corpuscular Hemoglobin 31.1 pg (27.0-33.0); Mean Corpuscular Volume 93.4 fL (80.0-98.0); Mean Platelet Volume 9.1 fL (9.4-12.3); Platelet Count 155 X10*3/uL (160-400); Red Blood Count 2.73 X10*6/uL (4.20-5.50); Red Cell Distribution Width 12.9 % (11.0-16.0); White Blood Count 5.3 X10*3/uL (4.8-10.8)
[2023-10-17 07:13] LABS: Immature Retic Fraction 14.2 % (3.0-15.9); Reticulocyte Percent 2.4 % (0.5-1.8); Reticulocytes Absolute 0.065 X10*6/uL (0.026-0.095)
[2023-10-17 07:30] LABS: Anion Gap 9 (12-20); Blood Urea Nitrogen 7 mg/dL (9-16); Calcium 9.3 mg/dL (8.4-10.2); Carbon Dioxide 30 mmol/L (22-29); Chloride 99 mmol/L (96-108); Creatinine Clr Calc Pharmacy 81.1; Estimated Glomerular Filt Rate > 60; Glucose Random 139 mg/dL (60-115); Iron 8 mcg/dL (30-160); Lactate Dehydrogenase 231 U/L (122-220); Percent Iron Saturation 4 % (15-50); Potassium 4.6 mmol/L (3.3-5.1); Sodium 133 mmol/L (135-145); Total Iron Binding Capacity 204 mcg/dL (228-428); Unsaturated Iron Binding 196 ug/dL
[2023-10-17 08:02] LABS: Vitamin B12 597 pg/mL (200-900)
[2023-10-17] MEDS: Omeprazole 20 MG CAPSULE.DR PO (08:27)
[2023-10-17] MEDS: Sertraline HCL 25 MG TABLET PO (08:27)
[2023-10-17] MEDS: Sertraline HCL 100 MG TABLET PO (08:27)
[2023-10-17] MEDS: Gabapentin 100 MG CAPSULE 200 MG PO ×3 (08:27→20:07)
[2023-10-17] MEDS: Ferrous Sulfate 324 MG TABLET.DR PO (08:28)
[2023-10-17] MEDS: Docusate Sodium 100 MG CAPSULE PO ×2 (08:28→20:07)
[2023-10-17] MEDS: HYDROmorphone HCl 1 MG/ML SYRINGE IVPUSH (09:24)
--- NOTE | 2023-10-17 09:52 | P.PNIM_ITS ---
Subjective Subjective Date of Service: 10/17/23 Interval History: c/o LLQ pain and back pain no dyspnea Review of Systems Review of Systems: Yes all other systems are reviewed and are negative Physical Exam 2 Vital Signs: Vital Signs: Last Vital Signs Temp 96.8 F 10/17/23 07:52 Pulse 81 10/17/23 07:52 Resp 18 10/17/23 07:52 BP 123/59 L 10/17/23 07:52 Pulse Ox 97 10/17/23 07:52 O2 Del Method Room Air 10/17/23 07:52 O2 Flow Rate 6 10/16/23 16:58 BMI result Body Mass Index 27.6 Gen: in no acute distress HEENT: sclera anicteric, moist mucus membranes Neck: supple Lungs: clear to auscultation bilaterally Heart: regular rate and rhythm, no murmurs Abd: soft, LLQ tender without rebound, surgical incision dry Ext: no edema Skin: warm/well-perfused Neuro: alert and oriented x3, no focal findings Psych: appropriate affect Objective Data Active Medications Docusate Sodium (Docusate Sodium 100 Mg Capsule) 100 mg PO BID [facility] Last Admin: 10/17/23 08:28 Dose: 100 mg Documented By: JING Ferrous Sulfate (Ferrous Sulfate 324 Mg Tablet.) 324 mg PO Q48H [facility] Last Admin: 10/17/23 08:28 Dose: 324 mg Documented By: JING Gabapentin (Gabapentin 100 Mg Capsule) 200 mg PO TID [facility] Last Admin: 10/17/23 08:27 Dose: 200 mg Documented By: JING Hydromorphone HCl (Hydromorphone Hcl 1 Mg/Ml Syringe) 1 mg IVPUSH Q3H PRN; Protocol PRN Reason: Pain, Severe (Pain Scale 7-10) Last Admin: 10/17/23 09:24 Dose: 1 mg Documented By: JING Acetaminophen (Ofirmev) 1,000 mg in 100 mls @ 400 mls/hr IV Q6H [facility] Last Infusion: 10/17/23 05:11 Dose: Infused Documented By: ADRIENNE Methocarbamol (Methocarbamol 750 Mg Tablet) 750 mg PO TID PRN PRN Reason: Muscle Spasm Last Admin: 10/17/23 03:07 Dose: 750 mg Documented By: ADRIENNE Omeprazole (Omeprazole 20 Mg Capsule.) 20 mg PO DAILY [facility] Last Admin: 10/17/23 08:27 Dose: 20 mg Documented By: JING Ondansetron HCl (Ondansetron Hcl 4 Mg/2 Ml Vial) 4 mg IVPUSH Q8H PRN PRN Reason: Nausea and Vomiting Last Admin: 10/17/23 09:24 Dose: 4 mg Documented By: JING Sertraline HCl (Sertraline Hcl 100 Mg Tablet) 100 mg PO DAILY [facility] Last Admin: 10/17/23 08:27 Dose: 100 mg Documented By: JING Sertraline HCl (Sertraline Hcl 25 Mg Tablet) 25 mg PO DAILY [facility] Last Admin: 10/17/23 08:27 Dose: 25 mg Documented By: JING Labs 10/17/23 06:02 10/17/23 06:02 Labs: Laboratory Results - last 24 hr 10/16/23 10/16/23 10/17/23 11:28 11:39 06:02 MCV 92.0 93.4 MCH 31.6 31.1 MCHC 34.3 33.3 RDW 12.7 12.9 Plt Count 161 155 L MPV 8.3 L 9.1 L Immature Gran % (Auto) 0.3 Neut % (Auto) 70.1 Lymph % (Auto) 20.8 Sully % (Auto) 8.3 Eos % (Auto) 0.2 Baso % (Auto) 0.3 Lymph # (Auto) 1.3 Sully # (Auto) 0.5 Eos # (Auto) 0.0 Baso # (Auto) 0.0 Abs Immat Gran (auto) 0.02 Absolute Neuts (auto) 4.3 Absolute Nucleated RBC 0.000 0.000 Nucleated RBC % (auto) 0.0 0.0 Absolute Retic 0.065 Percent Retic 2.4 H Immature Retic Fraction 14.2 Retic Hgb Equivalent 34.0 D-Dimer High Sensitivty 883 Anion Gap 12 9 L Estim Creat Clear Calc 78.6 81.1 Estimated GFR > 60 > 60 POC Glucose 136 H Random Glucose 169 H 139 H Calcium 8.5 9.3 D Iron 8 L TIBC 204 L % Saturation 4 L Unsat Iron Binding 196 Lactate Dehydrogenase 231 H B-Natriuretic Peptide 39 Vitamin B12 597 Folate 13.0 Blood Type B Positive Antibody Screen NEGATIVE Assessment and Plan (1) Syncope: Status: Acute Assessment and Plan: 68yo F who is POD#2 from L2-L5 posterior fusion and had a brief witnessed syncopal episode with immediate return of consciousness. [employer] was called. She was transiently hypoxic and complained of dyspnea. syncope - likely vasovagal; was given 250 mL normal saline; continue to monitor clinically dyspnea - transiently hypoxic and D-dimer high, though this could be due to postoperative state; obtained CTA, which was negative for PE. Pt thinks she had a brief asthma flare but I think it was more anxiety than anything else. All respiratory issues have resolved. hypoNa - Na improved; likely SIADH from pain; appears euvolemic; no need to fluid- restrict act this time normocytic anemia - likely Fe deficiency + retroperitoneal blood loss from surgery; replete Fe, recheck H+H in AM postop pain - continue IV APAP, prn IV hydromorphone + prn methocarbamol chronic pain - continue gabapentin mood disorder - continue sertraline VTE ppx - SCDs Total time managing care of this patient today: 35 minutes. Quality Stroke Does the patient have a stroke diagnosis?: No VTE Prior VTE?: No VTE Risk Level:: Surgical - low VTE Device Contraindication: N/A - Device Ordered VTE Drug Contraindication: Treatment Not Indicated
[2023-10-17] MEDS: iohexoL 350 MG/ML 100 ML INFUS..BTL 85 ML IV (11:09)
--- NOTE | 2023-10-17 11:15 | HO.NEURO.PN ---
Neurosurgery Operative Note Date of Service: 10/17/23 Narrative: On 11/03/2023, I examined the patient. There is more ecchymosis on the lateral flank of the abdomen. There is no defense musculaire. Coughing can be done without pain. Vital signs are stable. Laboratory values showed a change in hemoglobin from 9.5-8.5 and hematocrit from 27.7 to 25.5. We will get an CT abdomen with contrast to look for a retroperitoneal hematoma and the plan will be decided afterwards.
--- NOTE | 2023-10-17 13:06 | HO.NEUROPN_ITS ---
Neurosurgery Operative Note Date of Service: 10/17/23
--- NOTE | 2023-10-17 13:06 | HO.NEURO.PN ---
Neurosurgery Operative Note Date of Service: 10/17/23
--- NOTE | 2023-10-17 13:32 | PM.DS ---
DS: Providers Provider Date of Service: 10/17/23 Date of admission: 10/15/23 06:11 Primary care physician: JANICE Juárez Consults: 10/16/23 13:14 Consult to Internal Medicine Stat Consulting Provider: Stephon Thompson Reason for consultation: rapid response for vasovagal episode Has provider been notified: Yes DS: Diagnosis Discharge Diagnosis (1) Syncope: Status: Acute DS: Summary Time Attestation Discharge Coordination Time (in mins): 30 Quality: Safe Use of Opioids Does Pt have an Active Cancer Diagnosis on the Problem List?: No Quality: Stroke Does the patient have a stroke diagnosis?: No Physical Exam Vital Signs: Vital Signs: Last Vital Signs Temp 97.3 F 10/17/23 11:44 Pulse 82 10/17/23 11:44 Resp 18 10/17/23 11:44 BP 111/56 L 10/17/23 11:44 Pulse Ox 93 10/17/23 11:44 O2 Del Method Room Air 10/17/23 11:44 O2 Flow Rate 6 10/16/23 16:58 BMI result Body Mass Index 27.6 DS: Data Data Completed and Pending Labs on day of discharge: Laboratory Results - last 24 hr 10/17/23 06:02 WBC 5.3 RBC 2.73 L Hgb 8.5 L Hct 25.5 L MCV 93.4 MCH 31.1 MCHC 33.3 RDW 12.9 Plt Count 155 L MPV 9.1 L Absolute Nucleated RBC 0.000 Nucleated RBC % (auto) 0.0 Absolute Retic 0.065 Percent Retic 2.4 H Immature Retic Fraction 14.2 Retic Hgb Equivalent 34.0 Sodium 133 L Potassium 4.6 Chloride 99 Carbon Dioxide 30 H Anion Gap 9 L BUN 7 L Creatinine 0.65 Estim Creat Clear Calc 81.1 Estimated GFR > 60 Random Glucose 139 H Calcium 9.3 D Iron 8 L TIBC 204 L % Saturation 4 L Unsat Iron Binding 196 Lactate Dehydrogenase 231 H Vitamin B12 597 Folate 13.0 Blood Type B Positive Antibody Screen NEGATIVE Discharge Plan Discharge Anticipated Discharge Date/Time: 10/17/23 13:33 Patient Disposition: Home, Self-Care Discharge Diagnosis: s/p L2-5 OLIF Referrals: Kacey Parra PA [Primary Care Provider] - 1 Week Discharge Medications: New hydromorphone [Dilaudid] 4 mg tablet See Rx Instructions .ROUTE .COMPLEX Qty: 20 0RF Rx Instructions: Take 1/2 tablet by mouth every 4-6 hours as needed for severe pain. ondansetron 4 mg tablet,disintegrating 4 mg PO Q6H PRN (Reason: nausea and vomiting) Qty: 14 0RF sennosides [Senna Lax] 8.6 mg tablet 8.6 mg PO BID PRN (Reason: constipation) Qty: 30 0RF docusate sodium 100 mg capsule 100 mg PO BID Qty: 30 0RF Continued gabapentin 100 mg capsule 200 mg PO TID atorvastatin 20 mg tablet 20 mg PO DAILY sertraline 25 mg tablet 25 mg PO DAILY sertraline 100 mg tablet 100 mg PO DAILY omeprazole 20 mg capsule,delayed release(DR/EC) 20 mg PO DAILY@0630 Discharge Orders: Discharge Order (Routine); Ordered 10/17/23 Ordered By: Stephon Thompson Diet: Advance to usual diet Activity on Discharge: As tolerated Stand Alone Forms: Patient Portal Discharge page Print Language: Scottish Activity Restrictions/Additional Instructions: After your spinal surgery we ask you to observe the following restrictions/guidelines: Activity: With lumbar fusion surgery it is normal to have days in the first couple of weeks where you have increased leg pain. This usually lasts 1-2 days and self resolves with the continuation of medication. Attempt to stay mobile and continue activity as tolerated. It is normal to feel some discomfort as you increase your activity, but that will improve with time. We ask you avoid heavy lifting or activities that cause pain. As a general rule, 8lbs is a safe limit for lifting right after surgery. Walk as much as you feel comfortable but not to exhaustion. You will feel extra tired the first few days after surgery. Stay well hydrated. It is OK to walk up and down stairs You may return to driving when you are off narcotics (such as vicodin, oxycodone, dilaudid, etc), and you are back to normal functional capacity. If you have any concerns please check with office before driving. Return to work is specific to each patient and each surgery, so please speak with your doctor/PA at first follow up. Please bring paperwork such as FMLA at that time if you need it filled out. Medications: It is recommended that you take Tylenol 500 mg every 4 hours for the 1st week postoperatively, ?alongside ibuprofen 600 mg every 8 hours. We will give you a short supply of narcotics after surgery (usually one weeks worth). ??Please use this for breakthrough pain that is refractory to the Tylenol & ibuprofen. If you need more please call the office but do not use more than prescribed. You will need to give our office 48 hours notice if you need narcotics refilled and we do not fill narcotics on weekends or evenings. If you are on a narcotic, it is a good idea to take a stool softener such as colace or senna to avoid constipation If you take blood thinner such as aspirin, Plavix, Coumadin, Effient, Eliquis etc for conditions such as Afib, DVT, Pulmonary embolus, coronary disease, stents etc please speak with your surgeon about specific details as to when you can resume these medications. You can resume NSAIDs on post op day 1 (eg: Motrin, Naproxen, etc). Follow up: Please call the office, , after surgery to arrange a 3 week follow up for wound check. Wound Care: You may remove your dressing on the first day after surgery. ?You may ?leave open to air. Please do not remove the steri strips underneath. they will fall off on their own in one week. IT IS NORMAL FOR THE WOUND TO OOZE OR BE BLOODY FOR A FEW DAYS AFTER SURGERY. ?IF THIS HAPPENS JUST PLACE NEW DRESSING OVER IT TO AVOID STAINING CLOTHES. You may shower on post op day # 1 We ask that you do not let the water soak the wound. If it does get wet, just towel dry lightly. Please do not scrub your incision or place any type of chemical/ointment on the wound. No tub baths, pools or jacuzzis for one month. If you have any leaking or redness from your wound, or fevers, please call office Care Plan Goals: Returned to normal activity as tolerated Health Concerns: None Plan of Treatment: Follow-up in clinic in 2-3 weeks. Follow up with primary care physician regarding anemia. Assessment: Procedure: L2-5 OLIF POD: 2 Esha Gonzalez was seen this morning alongside the attending neurosurgeon Dr. Espino. Of note she had a syncopal episode yesterday which was deemed to be an isolated vasovagal incident when she was attempting to Valsalva while using the bathroom. She was subsequently worked up for a pulmonary embolus, via a CTA of the chest, which was unremarkable. There was some concern for a possible retroperitoneal bleed as her H&H seem to be downtrending. Repeat labs done this morning show a very slight down trend, which may be confounded by the application of extra IV fluids yesterday post her vasovagal episode. When we say her today she was sitting upright in bed on 3 . She reported continued low back and diony-lateral incision site pain, but states this pain is well controlled with Dilaudid. She has been up out of bed several times, and is tolerating a diet. She does state that she gets somewhat nauseous from the pain medication, but is otherwise tolerating it well. Her vitals are stable, with a blood pressure holding around 110 over 50s 60s. She is not tachycardic. On exam she has some tenderness to palpation over her left-sided diony-lateral incision. There is some associated ecchymosis around this area which is likely due to the retractors needed during the surgery. Her strength continues at 5/5, however she does elicit some pain to full strength testing. Her incision sites appear dry, with no signs of serosanguineous drainage or hematoma. Esha Gonzalez is a pleasant 68-year-old female, postop day 2, s/p L2-5 lumbar fusion. She had a single isolated syncopal episode yesterday while making a bowel movement. Her CT angiogram was unremarkable for PE. Her CT CAP with contrast from today shows no obvious retroperitoneal bleed. At this time we believe her down trending H&H to be a result of 500-700cc blood loss during the surgery accompanied by additional boluses of IV fluids given yesterday after her syncopal episode. She is otherwise doing well, and after discussion with the attending neurosurgeon Dr. Espino, and has been decided she will be discharged home. She has her daughter at home to help her, and feels motivated to get back to her ADLs. I will be sending in a prescription of hydromorphone, alongside docusate-senna, and Zofran. Stephon Espino MD,PhD [facility]
[2023-10-17] MEDS: HYDROmorphone HCl 2 MG TABLET PO ×3 (14:33→22:25)
--- NOTE | 2023-10-17 15:03 | MHC.CM.PN ---
IMM 10/17/23 S/P Lumbar Fusion. Patient is discharged today to home self care. She has arranged for transportation home.
[2023-10-17] MEDS: Ondansetron ODT 4 MG TAB.RAPDIS TRANSLINGU ×2 (15:50→22:24)
[2023-10-17] MEDS: polyethylene glycoL 3350 17 GM POWD.PACK PO (16:51)
[2023-10-17] MEDS: Acetaminophen 325 MG TABLET 975 MG PO (17:36)
[2023-10-17] MEDS: Sennosides 8.6 MG TABLET PO (20:07)
[2023-10-18] VITALS (12 sets, daily range): BP systolic 107–130; BP diastolic 57–62; PULSE 66–82; RESP 16–18; TEMP 36–37.1; O2SAT 93–97
[2023-10-18] MEDS: Acetaminophen 325 MG TABLET 975 MG PO ×3 (01:37→14:07)
[2023-10-18] MEDS: HYDROmorphone HCl 2 MG TABLET PO ×4 (02:16→16:49)
[2023-10-18] MEDS: Ondansetron ODT 4 MG TAB.RAPDIS TRANSLINGU ×2 (07:23→16:50)
[2023-10-18 07:24] LABS: Hematocrit 23.5 % (37.0-47.0); Mean Corpuscular Hemoglobin 31.6 pg (27.0-33.0); Mean Corpuscular Volume 92.9 fL (80.0-98.0); Mean Platelet Volume 9.2 fL (9.4-12.3); Platelet Count 164 X10*3/uL (160-400); Red Blood Count 2.53 X10*6/uL (4.20-5.50); Red Cell Distribution Width 12.8 % (11.0-16.0); White Blood Count 5.1 X10*3/uL (4.8-10.8)
[2023-10-18] MEDS: Sennosides 8.6 MG TABLET PO (08:50)
[2023-10-18] MEDS: Omeprazole 20 MG CAPSULE.DR PO (08:50)
[2023-10-18] MEDS: Sertraline HCL 25 MG TABLET PO (08:50)
[2023-10-18] MEDS: Gabapentin 100 MG CAPSULE 200 MG PO ×2 (08:50→14:07)
[2023-10-18] MEDS: Sertraline HCL 100 MG TABLET PO (08:50)
[2023-10-18] MEDS: Docusate Sodium 100 MG CAPSULE PO (08:51)
--- NOTE | 2023-10-18 08:53 | MHC.CM.PN ---
Per RN DC held 10/17/23. Surgery held discharge due to low H/H. A transfusion is ordered for 1 unit PRC today. DP Home with family support+transport at discharge. She will discharge once medically cleared.
--- NOTE | 2023-10-18 09:22 | HO.PM.IMPN ---
Subjective Subjective Date of Service: 10/18/23 Interval History: no dyspnea c/o pain, weakness; a little lightheaded tolerating diet Review of Systems Review of Systems: Yes all other systems are reviewed and are negative Physical Exam Vital Signs: Vital Signs: Last Vital Signs Temp 96.8 F 10/18/23 07:12 Pulse 79 10/18/23 08:54 Resp 18 10/18/23 07:12 BP 130/60 10/18/23 08:54 Pulse Ox 97 10/18/23 08:54 O2 Del Method Room Air 10/18/23 07:12 O2 Flow Rate 6 10/16/23 16:58 BMI result Body Mass Index 27.6 Gen: in no acute distress HEENT: sclera anicteric, moist mucus membranes Neck: supple Lungs: clear to auscultation bilaterally Heart: regular rate and rhythm, no murmurs Abd: soft, LLQ tender without rebound, surgical incision dry Ext: no edema Skin: warm/well-perfused Neuro: alert and oriented x3, no focal findings Psych: appropriate affect Objective Data Active Medications Acetaminophen (Acetaminophen 325 Mg Tablet) 975 mg PO Q6H [facility] Last Admin: 10/18/23 07:30 Dose: 975 mg Documented By: JING Docusate Sodium (Docusate Sodium 100 Mg Capsule) 100 mg PO BID [facility] Last Admin: 10/18/23 08:51 Dose: 100 mg Documented By: JING Ferrous Sulfate (Ferrous Sulfate 324 Mg Tablet.) 324 mg PO Q48H [facility] Last Admin: 10/17/23 08:28 Dose: 324 mg Documented By: JING Gabapentin (Gabapentin 100 Mg Capsule) 200 mg PO TID [facility] Last Admin: 10/18/23 08:50 Dose: 200 mg Documented By: JING Hydromorphone HCl (Hydromorphone Hcl 2 Mg Tablet) 2 mg PO Q4H PRN PRN Reason: severe pain 7-10 Last Admin: 10/18/23 07:23 Dose: 2 mg Documented By: JING Sodium Chloride (Ns) 100 mls @ 100 mls/hr IV ONCE ONE Stop: 10/18/23 10:05 Methocarbamol (Methocarbamol 750 Mg Tablet) 750 mg PO TID PRN PRN Reason: Muscle Spasm Last Admin: 10/17/23 20:06 Dose: 750 mg Documented By: JAY Omeprazole (Omeprazole 20 Mg Capsule.Dr) 20 mg PO DAILY [facility] Last Admin: 10/18/23 08:50 Dose: 20 mg Documented By: JING Ondansetron HCl (Ondansetron Odt 4 Mg Tab.Rapdis) 4 mg TRANSLINGU Q6H PRN PRN Reason: Nausea and Vomiting Last Admin: 10/18/23 07:23 Dose: 4 mg Documented By: JING Senna (Sennosides 8.6 Mg Tablet) 8.6 mg PO BID [facility] Last Admin: 10/18/23 08:50 Dose: 8.6 mg Documented By: JING Sertraline HCl (Sertraline Hcl 100 Mg Tablet) 100 mg PO DAILY [facility] Last Admin: 10/18/23 08:50 Dose: 100 mg Documented By: JING Sertraline HCl (Sertraline Hcl 25 Mg Tablet) 25 mg PO DAILY [facility] Last Admin: 10/18/23 08:50 Dose: 25 mg Documented By: JING Labs 10/18/23 06:22 10/17/23 06:02 Labs: Laboratory Results - last 24 hr 10/18/23 06:22 MCV 92.9 MCH 31.6 MCHC 34.0 RDW 12.8 Plt Count 164 MPV 9.2 L Absolute Nucleated RBC 0.000 Nucleated RBC % (auto) 0.0 Impressions Guidance Fluoroscopy 10/15/23 12:30 IMPRESSION: Fluoroscopy and spot films provided during lumbar spine surgery. Abdomen/Pelvis CT 10/17/23 11:15 IMPRESSION: Extensive postsurgical change in the left anterior subcutaneous tissues and adjacent musculature with likely reactive ileus however I do not see evidence of a retroperitoneal bleed or drainable collection. Fleischner guidelines were followed. Assessment and Plan (1) Syncope: Status: Acute Assessment and Plan: 68yo F who is POD#3 from L2-L5 posterior fusion and had a brief witnessed syncopal episode with immediate return of consciousness. [employer] was called. She was transiently hypoxic and complained of dyspnea. syncope - likely vasovagal; was given 250 mL normal saline; no further episodes dyspnea - transiently hypoxic and D-dimer high, though this could be due to postoperative state; obtained CTA, which was negative for PE. Pt thinks she had a brief asthma flare but I think it was more anxiety than anything else. All respiratory issues have resolved. hypoNa - Na improved; likely SIADH from pain; appears euvolemic; no need to fluid-restrict normocytic anemia - likely Fe deficiency + retroperitoneal blood loss from surgery; no active bleed on CT; replete Fe PO, Hb borderline at 8 and has drifted down so will transfuse 1u pRBCs after discussing risks/benefits with pt and recheck H+H afterwards postop pain - continue PO, prn IV hydromorphone + prn methocarbamol chronic pain - continue gabapentin mood disorder - continue sertraline VTE ppx - SCDs From the medical perspective she may be discharged after transfusion. Would recommend rechecking CBC in 1 mo and taking FeSO4 324 mg q48h [every-other day dosing improves absorption] Total time managing care of this patient today: 35 minutes. Quality Stroke Does the patient have a stroke diagnosis?: No VTE Prior VTE?: No VTE Risk Level:: Surgical - low VTE Device Contraindication: N/A - Device Ordered VTE Drug Contraindication: Treatment Not Indicated
--- NOTE | 2023-10-18 10:04 | HO.NEURO.PN ---
Neurosurgery Operative Note Date of Service: 10/18/23 Narrative: Postop day number 4 Patient reports feeling fatigue and feeling sluggish when she walks but otherwise no specific symptoms to report. She does not report any lightheadedness. She has been tolerating a diet. Minimal abdominal pain. She is passing gas. She has been up and cleared walking with PT. she is voiding okay. No chest pain, shortness of breath or other constitutional symptoms. The internal medicine team is following her. Afebrile, vital signs stable Laboratory data: Her hemoglobin did drop from 8.5-8.0 today. Physical exam: Patient is resting comfortably in bed, she does have some discomfort when turning over in her back. She has full strength of bilateral lower extremities. Her abdomen has some ecchymosis on the left side near the left lower quadrant incision but no signs of active bleeding. Her abdomen is soft nondistended, she is only tender right by the incision area. No rebound tenderness or guarding. Her back dressings were removed, she has Steri-Strips in place with small amount of ecchymosis seen around these but no signs of any active bleeding. Impression: Postop day 4., L2-L5 oblique lumbar interbody fusion, clinically stable today. However, her hemoglobin did drop a half a point again. She is feeling fatigued and sluggish show internal medicine would prefer to transfuse her a unit of blood to see if that helps. Vital signs are all stable. Her abdomen is soft nondistended nontender. CT scan yesterday did not reveal any signs of acute bleeding. Her neurological examination reveals full strength. She has tolerating a diet, voiding and cleared PT. per Internal Medicine, when she finishes the transfusion she is okay to be discharged. I will update Dr. Espino on her status and we will plan for discharge home today.
--- NOTE | 2023-10-18 10:14 | PM.DS ---
DS: Providers Provider Date of Service: 10/18/23 Date of admission: 10/15/23 06:11 Primary care physician: JANICE Juárez Consults: 10/16/23 13:14 Consult to Internal Medicine Stat Consulting Provider: Stephon Thompson Reason for consultation: rapid response for vasovagal episode Has provider been notified: Yes DS: Diagnosis Discharge Diagnosis (1) Syncope: Status: Acute DS: Summary Time Attestation Discharge Coordination Time (in mins): 5 Quality: Safe Use of Opioids Does Pt have an Active Cancer Diagnosis on the Problem List?: No Quality: Stroke Does the patient have a stroke diagnosis?: No Physical Exam Vital Signs: Vital Signs: Last Vital Signs Temp 96.8 F 10/18/23 07:12 Pulse 79 10/18/23 08:54 Resp 18 10/18/23 07:12 BP 130/60 10/18/23 08:54 Pulse Ox 97 10/18/23 08:54 O2 Del Method Room Air 10/18/23 07:12 O2 Flow Rate 6 10/16/23 16:58 BMI result Body Mass Index 27.6 DS: Data Data Completed and Pending Labs on day of discharge: Laboratory Results - last 24 hr 10/17/23 10/18/23 06:02 06:22 WBC 5.1 RBC 2.53 L Hgb 8.0 L Hct 23.5 L MCV 92.9 MCH 31.6 MCHC 34.0 RDW 12.8 Plt Count 164 MPV 9.2 L Absolute Nucleated RBC 0.000 Nucleated RBC % (auto) 0.0 Blood Type B Positive Antibody Screen NEGATIVE Crossmatch See Detail Discharge Plan Discharge Anticipated Discharge Date/Time: 10/17/23 13:33 Patient Disposition: Home, Self-Care Discharge Diagnosis: s/p L2-5 OLIF Referrals: Kacey Parra PA [Primary Care Provider] - 1 Week Discharge Medications: New hydromorphone [Dilaudid] 4 mg tablet See Rx Instructions .ROUTE .COMPLEX Qty: 20 0RF Rx Instructions: Take 1/2 tablet by mouth every 4-6 hours as needed for severe pain. ondansetron 4 mg tablet,disintegrating 4 mg PO Q6H PRN (Reason: nausea and vomiting) Qty: 14 0RF sennosides [Senna Lax] 8.6 mg tablet 8.6 mg PO BID PRN (Reason: constipation) Qty: 30 0RF docusate sodium 100 mg capsule 100 mg PO BID Qty: 30 0RF ferrous sulfate [iron] 325 mg (65 mg iron) tablet 325 mg PO DAILY Qty: 30 0RF Continued gabapentin 100 mg capsule 200 mg PO TID atorvastatin 20 mg tablet 20 mg PO DAILY sertraline 25 mg tablet 25 mg PO DAILY sertraline 100 mg tablet 100 mg PO DAILY omeprazole 20 mg capsule,delayed release(DR/EC) 20 mg PO DAILY@0630 Discharge Orders: Discharge Order (Routine); Ordered 10/17/23 Ordered By: Stephon Thompson Diet: Advance to usual diet Activity on Discharge: As tolerated Stand Alone Forms: Patient Portal Discharge page Print Language: Maltese Activity Restrictions/Additional Instructions: After your spinal surgery we ask you to observe the following restrictions/guidelines: You were anemic after surgery because of blood loss during the surgery. We gave you transfusion in the hospital to help improve some of your energy levels. You should follow-up with your primary care physician in 2-3 weeks and have a repeat blood count drawn just to check on the levels. Please call them to make this arrangement. Activity: With lumbar fusion surgery it is normal to have days in the first couple of weeks where you have increased leg pain. This usually lasts 1-2 days and self resolves with the continuation of medication. Attempt to stay mobile and continue activity as tolerated. It is normal to feel some discomfort as you increase your activity, but that will improve with time. We ask you avoid heavy lifting or activities that cause pain. As a general rule, 8lbs is a safe limit for lifting right after surgery. Walk as much as you feel comfortable but not to exhaustion. You will feel extra tired the first few days after surgery. Stay well hydrated. It is OK to walk up and down stairs You may return to driving when you are off narcotics (such as vicodin, oxycodone, dilaudid, etc), and you are back to normal functional capacity. If you have any concerns please check with office before driving. Return to work is specific to each patient and each surgery, so please speak with your doctor/PA at first follow up. Please bring paperwork such as FMLA at that time if you need it filled out. Medications: It is recommended that you take Tylenol 500 mg every 4 hours for the 1st week postoperatively, ?alongside ibuprofen 600 mg every 8 hours. We will give you a short supply of narcotics after surgery (usually one weeks worth). ??Please use this for breakthrough pain that is refractory to the Tylenol & ibuprofen. If you need more please call the office but do not use more than prescribed. You will need to give our office 48 hours notice if you need narcotics refilled and we do not fill narcotics on weekends or evenings. If you are on a narcotic, it is a good idea to take a stool softener such as colace or senna to avoid constipation If you take blood thinner such as aspirin, Plavix, Coumadin, Effient, Eliquis etc for conditions such as Afib, DVT, Pulmonary embolus, coronary disease, stents etc please speak with your surgeon about specific details as to when you can resume these medications. You can resume NSAIDs on post op day 1 (eg: Motrin, Naproxen, etc). Follow up: Please call the office, , after surgery to arrange a 3 week follow up for wound check. Wound Care: You may remove your dressing on the first day after surgery. ?You may ?leave open to air. Please do not remove the steri strips underneath. they will fall off on their own in one week. IT IS NORMAL FOR THE WOUND TO OOZE OR BE BLOODY FOR A FEW DAYS AFTER SURGERY. ?IF THIS HAPPENS JUST PLACE NEW DRESSING OVER IT TO AVOID STAINING CLOTHES. You may shower on post op day # 1 We ask that you do not let the water soak the wound. If it does get wet, just towel dry lightly. Please do not scrub your incision or place any type of chemical/ointment on the wound. No tub baths, pools or jacuzzis for one month. If you have any leaking or redness from your wound, or fevers, please call office Care Plan Goals: Returned to normal activity as tolerated Health Concerns: None Plan of Treatment: Follow-up in clinic in 2-3 weeks. Follow up with primary care physician regarding anemia. Assessment: Procedure: L2-5 OLIF POD: 2 Esha Gonzalez was seen this morning alongside the attending neurosurgeon Dr. Espino. Of note she had a syncopal episode yesterday which was deemed to be an isolated vasovagal incident when she was attempting to Valsalva while using the bathroom. She was subsequently worked up for a pulmonary embolus, via a CTA of the chest, which was unremarkable. There was some concern for a possible retroperitoneal bleed as her H&H seem to be downtrending. Repeat labs done this morning show a very slight down trend, which may be confounded by the application of extra IV fluids yesterday post her vasovagal episode. When we say her today she was sitting upright in bed on . She reported continued low back and diony-lateral incision site pain, but states this pain is well controlled with Dilaudid. She has been up out of bed several times, and is tolerating a diet. She does state that she gets somewhat nauseous from the pain medication, but is otherwise tolerating it well. Her vitals are stable, with a blood pressure holding around 110 over 50s 60s. She is not tachycardic. On exam she has some tenderness to palpation over her left-sided diony-lateral incision. There is some associated ecchymosis around this area which is likely due to the retractors needed during the surgery. Her strength continues at 5/5, however she does elicit some pain to full strength testing. Her incision sites appear dry, with no signs of serosanguineous drainage or hematoma. Esha Gonzalez is a pleasant 68-year-old female, postop day 2, s/p L2-5 lumbar fusion. She had a single isolated syncopal episode yesterday while making a bowel movement. Her CT angiogram was unremarkable for PE. Her CT CAP with contrast from today shows no obvious retroperitoneal bleed. At this time we believe her down trending H&H to be a result of 500-700cc blood loss during the surgery accompanied by additional boluses of IV fluids given yesterday after her syncopal episode. She is otherwise doing well, and after discussion with the attending neurosurgeon Dr. Espino, and has been decided she will be discharged home. She has her daughter at home to help her, and feels motivated to get back to her ADLs. I will be sending in a prescription of hydromorphone, alongside docusate-senna, and Zofran. Stephon Espino MD,PhD [facility]
[2023-10-18 16:34] LABS: Hemoglobin 9.9 g/dl (12.0-16.0)
--- NOTE | 2023-11-15 14:57 | P.DS_ITS ---
DS: Providers Provider Date of Service: 11/15/23 Date of admission: 10/15/23 06:11 Date of discharge: 10/18/23 Primary care physician: JANICE Juárez Consults: 10/16/23 13:14 Consult to Internal Medicine Stat Consulting Provider: Stephon Thompson Reason for consultation: rapid response for vasovagal episode Has provider been notified: Yes DS: Diagnosis Discharge Diagnosis (1) Syncope: Status: Resolved DS: Summary Time Attestation Discharge Coordination Time (in mins): 0 Quality: Safe Use of Opioids Does Pt have an Active Cancer Diagnosis on the Problem List?: No Quality: Stroke Does the patient have a stroke diagnosis?: No Physical Exam Vital Signs: Vital Signs: Last Vital Signs Temp 98.8 F 10/18/23 15:17 Pulse 77 10/18/23 15:17 Resp 18 10/18/23 15:17 BP 117/62 10/18/23 15:17 Pulse Ox 94 10/18/23 15:32 O2 Del Method Room Air 10/18/23 15:32 O2 Flow Rate 6 10/16/23 16:58 BMI result Body Mass Index 27.6 DS: Data Data Completed and Pending Completed studies during hospitalization [Text1]: Procedures Excision of Lumbar Vertebral Disc, Open Approach (10/15/23) Fusion of 2 or more Lumbar Vertebral Joints with Interbody Fusion Device, Anterior Approach, Anterior Column, Open Approach (10/15/23) Insertion of Interspinous Process Spinal Stabilization Device into Lumbar Vertebral Joint, Open Approach (10/15/23) Monitoring of Peripheral Nervous Electrical Activity, Intraoperative, External Approach (10/15/23) Transfusion of Nonautologous Red Blood Cells into Peripheral Vein, Percutaneous Approach (10/15/23) Discharge Plan Discharge Anticipated Discharge Date/Time: 10/17/23 13:33 Patient Disposition: Home, Self-Care Discharge Diagnosis: s/p L2-5 OLIF Referrals: Kacey Parra PA [Primary Care Provider] - 1 Week Discharge Medications: New ondansetron 4 mg tablet,disintegrating 4 mg PO Q6H PRN (Reason: nausea and vomiting) Qty: 14 0RF sennosides [Senna Lax] 8.6 mg tablet 8.6 mg PO BID PRN (Reason: constipation) Qty: 30 0RF docusate sodium 100 mg capsule 100 mg PO BID Qty: 30 0RF ferrous sulfate [iron] 325 mg (65 mg iron) tablet 325 mg PO DAILY Qty: 30 0RF Continued gabapentin 100 mg capsule 200 mg PO TID atorvastatin 20 mg tablet 20 mg PO DAILY sertraline 25 mg tablet 25 mg PO DAILY sertraline 100 mg tablet 100 mg PO DAILY omeprazole 20 mg capsule,delayed release(DR/EC) 20 mg PO DAILY@0630 No Action hydromorphone [Dilaudid] 4 mg tablet See Rx Instructions .ROUTE .COMPLEX Qty: 14 0RF Rx Instructions: Take 1/2 tablet by mouth every 4-6 hours as needed for severe pain. Discharge Orders: Discharge Order (Routine); Ordered 10/17/23 Ordered By: Stephon Thompson Diet: Advance to usual diet Activity on Discharge: As tolerated Stand Alone Forms: Patient Portal Discharge page Print Language: Montenegrin Activity Restrictions/Additional Instructions: After your spinal surgery we ask you to observe the following restrictions/guidelines: You were anemic after surgery because of blood loss during the surgery. We gave you transfusion in the hospital to help improve some of your energy levels. You should follow-up with your primary care physician in 2-3 weeks and have a repeat blood count drawn just to check on the levels. Please call them to make this arrangement. Activity: With lumbar fusion surgery it is normal to have days in the first couple of weeks where you have increased leg pain. This usually lasts 1-2 days and self resolves with the continuation of medication. Attempt to stay mobile and continue activity as tolerated. It is normal to feel some discomfort as you increase your activity, but that will improve with time. We ask you avoid heavy lifting or activities that cause pain. As a general rule, 8lbs is a safe limit for lifting right after surgery. Walk as much as you feel comfortable but not to exhaustion. You will feel extra tired the first few days after surgery. Stay well hydrated. It is OK to walk up and down stairs You may return to driving when you are off narcotics (such as vicodin, oxycodone, dilaudid, etc), and you are back to normal functional capacity. If you have any concerns please check with office before driving. Return to work is specific to each patient and each surgery, so please speak with your doctor/PA at first follow up. Please bring paperwork such as FMLA at that time if you need it filled out. Medications: It is recommended that you take Tylenol 500 mg every 4 hours for the 1st week postoperatively, ?alongside ibuprofen 600 mg every 8 hours. We will give you a short supply of narcotics after surgery (usually one weeks worth). ??Please use this for breakthrough pain that is refractory to the Tylenol & ibuprofen. If you need more please call the office but do not use more than prescribed. You will need to give our office 48 hours notice if you need narcotics refilled and we do not fill narcotics on weekends or evenings. If you are on a narcotic, it is a good idea to take a stool softener such as colace or senna to avoid constipation If you take blood thinner such as aspirin, Plavix, Coumadin, Effient, Eliquis etc for conditions such as Afib, DVT, Pulmonary embolus, coronary disease, stents etc please speak with your surgeon about specific details as to when you can resume these medications. You can resume NSAIDs on post op day 1 (eg: Motrin, Naproxen, etc). Follow up: Please call the office, , after surgery to arrange a 3 week follow up for wound check. Wound Care: You may remove your dressing on the first day after surgery. ?You may ?leave open to air. Please do not remove the steri strips underneath. they will fall off on their own in one week. IT IS NORMAL FOR THE WOUND TO OOZE OR BE BLOODY FOR A FEW DAYS AFTER SURGERY. ?IF THIS HAPPENS JUST PLACE NEW DRESSING OVER IT TO AVOID STAINING CLOTHES. You may shower on post op day # 1 We ask that you do not let the water soak the wound. If it does get wet, just towel dry lightly. Please do not scrub your incision or place any type of chemical/ointment on the wound. No tub baths, pools or jacuzzis for one month. If you have any leaking or redness from your wound, or fevers, please call o ffice Care Plan Goals: Returned to normal activity as tolerated Health Concerns: None Plan of Treatment: Follow-up in clinic in 2-3 weeks. Follow up with primary care physician regarding anemia. Assessment: Procedure: L2-5 OLIF POD: 2 Esha Gonzalez was seen this morning alongside the attending neurosurgeon Dr. Espino. Of note she had a syncopal episode yesterday which was deemed to be an isolated vasovagal incident when she was attempting to Valsalva while using the bathroom. She was subsequently worked up for a pulmonary embolus, via a CTA of the chest, which was unremarkable. There was some concern for a possible retroperitoneal bleed as her H&H seem to be downtrending. Repeat labs done this morning show a very slight down trend, which may be confounded by the application of extra IV fluids yesterday post her vasovagal episode. When we say her today she was sitting upright in bed on 3 . She reported continued low back and diony-lateral incision site pain, but states this pain is well controlled with Dilaudid. She has been up out of bed several times, and is tolerating a diet. She does state that she gets somewhat nauseous from the pain medication, but is otherwise tolerating it well. Her vitals are stable, with a blood pressure holding around 110 over 50s 60s. She is not tachycardic. On exam she has some tenderness to palpation over her left-sided diony-lateral incision. There is some associated ecchymosis around this area which is likely due to the retractors needed during the surgery. Her strength continues at 5/5, however she does elicit some pain to full strength testing. Her incision sites appear dry, with no signs of serosanguineous drainage or hematoma. Esha Gonzalez is a pleasant 68-year-old female, postop day 2, s/p L2-5 lumbar fusion. She had a single isolated syncopal episode yesterday while making a bowel movement. Her CT angiogram was unremarkable for PE. Her CT CAP with contrast from today shows no obvious retroperitoneal bleed. At this time we believe her down trending H&H to be a result of 500-700cc blood loss during the surgery accompanied by additional boluses of IV fluids given yesterday after her syncopal episode. She is otherwise doing well, and after discussion with the attending neurosurgeon Dr. Espino, and has been decided she will be discharged home. She has her daughter at home to help her, and feels motivated to get back to her ADLs. I will be sending in a prescription of hydromorphone, alongside docusate-senna, and Zofran. Stephon Espino MD,PhD [facility] Addendum: For the record the patient was discharged on October 17 as is outlined in the time stamp on this discharge summary. Discharge Date/Time: 10/18/23 17:30
== END 2023-10-18 17:30 | disposition home or self-care (01) | DRG 457 ==
LOC: HO.SSSA 14:46 → HO.S3 15:17
PROVIDERS: Family Medicine; Neurological Surgery; Student in an Organized Health Care Education/Training Program; Admitting Provider Physician Assistant; PCP Physician Assistant Medical; Visit Provider Physician Assistant
PROC: 0SG10A0 Fusion of 2 or more Lumbar Vertebral Joints with Interbody Fusion Device, Anterior Approach, Anterior Column, Open Approach (ICD-10-PCS; 2023-10-15 07:30)
DX: M43.16 Spondylolisthesis, lumbar region (principal); E87.1 Hypo-osmolality and hyponatremia; M41.56 Other secondary scoliosis, lumbar region; D64.89 Other specified anemias; G89.18 Other acute postprocedural pain; F39 Unspecified mood [affective] disorder; R55 Syncope and collapse; K21.9 Gastro-esophageal reflux disease without esophagitis; Z79.899 Other long term (current) drug therapy
CPT/HCPCS: 36415; 71275; 74177; 80048; 82607; 82746; 82947; 83540; 83615; 83880; 85014; 85018; 85025; 85027; 85045; 85379; 86850; 86900; 86901; 86923; 93005; 94799; 97116; 97162; C1713; C1758; C1889; C9250; C9290; J0131; J0665; J0690; J1100; J1170; J1200; J1630; J2250; J2371; J2405; J2704; J3010; L8699; P9016; Q9967

== ENCOUNTER 2023-10-15 06:11 | Outpatient (BNV) | payer MEDICARE, SELFPAY | END 2023-10-16 11:33 | PROVIDERS: Admitting Provider Physician Assistant; PCP Physician Assistant Medical; Visit Provider Internal Medicine | DX: R55 Syncope and collapse (principal) | CPT/HCPCS: 93010 ==

== ENCOUNTER → 2023-10-15 06:11 | Outpatient (BNV) | payer MEDICARE, SELFPAY | PROVIDERS: Admitting Provider Physician Assistant; PCP Physician Assistant Medical; Visit Provider Family Medicine | DX: R55 Syncope and collapse (principal) | CPT/HCPCS: 99222; 99232 ==

== ENCOUNTER → 2023-10-15 06:11 | Outpatient (BNV) | payer MEDICARE, SELFPAY | PROVIDERS: Admitting Provider Physician Assistant; PCP Physician Assistant Medical; Visit Provider Neurological Surgery | DX: R55 Syncope and collapse (principal) | CPT/HCPCS: 20930; 22558; 22612; 22840; 22853; 63056; 99024; 99499 ==

== ENCOUNTER 2023-11-05 15:01 | Outpatient (AMB) | payer MEDICARE, SELFPAY ==
--- NOTE | 2023-11-05 15:05 | A.SPINEOV_ITS ---
Intake Visit Reasons: 1st post op Intake Note: Ms. Srivastava is here today for her 1st post op visit. 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 She states that she is overall very satisfied with the surgery. She feels her low back pain is significantly decreased. She does still have quite a bit of pain into her anterior thighs bilaterally, and has a difficult time sleeping through the night. She is also ambulating with the assistance of a cane more so for comfort/stability than for necessity. She has still taking the Dilaudid every 6-8 hours at least for pain control. She is also utilizing [id number] remedies. She has several questions regarding the postoperative healing course, and her surgery. I answered all of her questions to the best of my ability. No new neurological deficits. The patient ambulates well with the assistance of a cane. Her left lateral and posterior incision sites appear clean dry, with no sero-sanguineous drainage. I would like to follow up with Esha Gonzalez again in 6 weeks with a set of x-rays. Stephon Espino MD,PhD [facility] Medications: Refilled hydromorphone (Dilaudid) Take 1/2 tablet by mouth every 4-6 hours as needed for severe pain. 14 tabs 0RF Coding Level of Care Code Global (58439) Diagnoses S/P lumbar fusion Z98.1
== END 2023-11-05 15:53 | disposition home or self-care (01) ==
PROVIDERS: PCP Physician Assistant Medical; Visit Provider Physician Assistant
DX: Z98.1 Arthrodesis status (principal)
CPT/HCPCS: 99024

== ENCOUNTER → 2023-11-05 15:01 | Outpatient (BNVA) | payer MEDICARE, SELFPAY | PROVIDERS: PCP Physician Assistant Medical; Visit Provider Physician Assistant | DX: Z98.1 Arthrodesis status (principal) | CPT/HCPCS: 99212 ==

== ENCOUNTER 2023-12-19 06:57 | Outpatient (REF) | payer MEDICARE, SELFPAY ==
--- NOTE | ~2023-12-19 | XR_ITS ---
EXAMINATION: XR LUMBAR SPINE CLINICAL INFORMATION: Prior surgery. Arthrodesis. COMPARISON: Lumbar spine radiographs dated 08/28/2023. TECHNIQUE: AP, lateral, flexion, and extension views of the lumbar spine. FINDINGS: Interval placement of posterior stabilization and intervertebral disc hardware at L2-L5. No hardware fracture or perihardware lucency to suggest loosening or infection. Redemonstration of levocurvature of the lumbar spine, unchanged. No acute fracture or subluxation. No loss of vertebral body height. Multilevel loss of intervertebral disc height with endplate osteophytes, unchanged. No concerning lytic or blastic osseous lesion. XR/XR lumbar spine 4V min IMPRESSION: Posterior stabilization and intervertebral disc hardware at L2-L5 without evidence of hardware complication. Electronically signed by: Roberto Carlos Villalobos MD 01/15/2024 08:58 PM EDT
== END 2023-12-19 06:58 | disposition home or self-care (01) ==
LOC: HO.HOSX 06:57
PROVIDERS: Visit Provider Physician Assistant
DX: Z98.1 Arthrodesis status (principal)
CPT/HCPCS: 72110; 99212

== ENCOUNTER 2023-12-19 14:34 | Outpatient (AMB) | payer MEDICARE, SELFPAY ==
--- NOTE | 2023-12-19 15:19 | A.SPINEOV_ITS ---
Intake Visit Reasons: 2nd post op with xrays Intake Note: Ms. Srivastava is here today for her 2nd post-op visit with x-rays. 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 She has been recovering at home, generally trying to increase her activity levels but has noticed that she is having some pain along the right side of her paraspinal region radiating down into her right groin. It happens at night as well. She is also having some gait imbalance and feeling like her left foot is turning inward. On my exam today, she appears to have a Trendelenburg gait. Her distal lower extremity strength in tibialis strength is all normal. Her wounds have all healed up beautifully. I reviewed her x-rays, it is not a midline x-rays so it is hard to evaluate the hardware, but it appears to be in similar position to what it was in the operating room. I went back and reviewed her CT scan in the hospital and this shows no evidence of screws near the L5 nerve that would explain her Trendelenburg gait. I thinks for some reason she has irritation of the L5 nerve and it should improve with time, she feels that she may have already had the Trendelenburg gait before surgery. I am going to send her to PT and see if they can help restore length and things and get her a little more steady on her feet. I will see her back in 2 months with x-rays. Rajesh Espino MD, PhD [facility] Orders: Orders XR lumbar spine 4V min Today Z98.1 - Arthrodesis status PT Evaluation and Treatment Today Z98.1 - Arthrodesis status Coding Level of Care Code Global (17258) Diagnoses S/P lumbar fusion Z98.1
== END 2023-12-19 16:04 | disposition home or self-care (01) ==
PROVIDERS: PCP Physician Assistant Medical; Visit Provider Physician Assistant
DX: Z98.1 Arthrodesis status (principal)
CPT/HCPCS: 99024

== ENCOUNTER 2024-02-13 13:07 | Outpatient (REF) | payer MEDICARE, SELFPAY | END 2024-02-13 13:08 | disposition home or self-care (01) | LOC: HO.HOSX 13:07 | PROVIDERS: Visit Provider Physician Assistant | DX: Z98.1 Arthrodesis status (principal); M53.3 Sacrococcygeal disorders, not elsewhere classified; G89.29 Other chronic pain | CPT/HCPCS: 72110; 99212 ==

== ENCOUNTER 2024-02-13 13:37 | Outpatient (AMB) | payer MEDICARE, SELFPAY ==
--- NOTE | 2024-02-13 13:44 | A.SPINEOV_ITS ---
Intake Visit Reasons: 3rd post op with xrays Intake Note: Ms. Srivastava is here today for her 3rd post op with x-rays. Risk Management Specialist Required: No Allergies scopolamine Allergy (Intermediate, Verified 02/13/24 14:21) dizzy, nausea Assessment & Plan Assessment & Plan (1) Chronic SI joint pain: Code(s): M53.3 - Sacrococcygeal disorders, not elsewhere classified; G89.29 - Other chronic pain Category: Medical Plan Mrs Srivastava is now 4 months out from her L2-5 minimally invasive lumbar fusion. She has been doing physical therapy and aqua therapy and has improved her gait quite a bit. She had a pronounced Trendelenburg gait before surgery and for awhile after surgery but it seems as though there is some improvement in the musculature of the hip and she has making progress with that. One thing that has continued to bother her quite significantly though is a pain in the right side of her back that radiates into her anterior groin. She did have it before surgery but unfortunately it did not go away with the spinal fusion. She does not have back pain in the classic extensive midline pain that radiates upward or in the paraspinal regions. This appears to be more centered over the SI joint. She is continuing to take Tylenol, gabapentin and Robaxin for this throughout the day, every day. On my exam, she is improving in terms of her Trendelenburg walk, she does have pain with internal rotation of her right hip. She also has positive finger Letha sign. External rotation of her hip is unremarkable. I reviewed her x-rays today and it shows stable positioning of the hardware, there some slight degeneration above the fusion but not significantly changed compared to her last x-ray. It maybe slightly more angulated but does not appear unstable with flexion and extension. I think what she could be dealing with here is an SI joint inflammation, which can be seen after spinal fusion surgery because of the fixation of the lumbar spine. Her CT scan done in the hospital during the time of her surgery also shows that she has a bone spur deeper in the more distal part of the SI joint which suggests she may have had problems going on even before surgery with this. Given the physical exam findings and her clinical description I would like to send her for right SI joint injection with Dr. Parsons and we can re-evaluate after that. Total amount of time spent in this visit was 20 minutes in discussion of symptoms, lumbar x-ray and CT imaging results and subsequent plan of care Rajesh Espino MD,PhD [facility] Orders: Orders XR lumbar spine 4V min Today Z98.1 - Arthrodesis status Referrals Physiatry Referral G89.29 - Other chronic pain, M53.3 - Sacrococcygeal disorders, not elsewhere classified Coding Level of Care Code Est Pt Level 3 (79902) Diagnoses Chronic SI joint pain M53.3; G89.29
== END 2024-02-13 15:28 | disposition home or self-care (01) ==
PROVIDERS: PCP Physician Assistant Medical; Visit Provider Physician Assistant
DX: M53.3 Sacrococcygeal disorders, not elsewhere classified (principal); G89.29 Other chronic pain
CPT/HCPCS: 99213

== ENCOUNTER 2024-08-07 14:53 | Outpatient (AMB) | payer MEDICARE, SELFPAY ==
--- NOTE | 2024-08-07 14:58 | HO.SPINEOV ---
Intake Visit Reasons: f/up/to check is hardware is in place Intake Note: Ms. Srivastava is here today for a F/u to check if the hardware is in place. General Expeditor Required: No Allergies scopolamine Allergy (Intermediate, Verified 02/13/24 14:21) dizzy, nausea Assessment & Plan Assessment & Plan (1) Chronic SI joint pain: Code(s): M53.3 - Sacrococcygeal disorders, not elsewhere classified; G89.29 - Other chronic pain Category: Medical Plan Mrs Srivastava is here in follow up. Her Trendelenburg gait is improving, she continues to do water aerobics. She is still battling with the pain over the right SI joint. She has been getting SI joint injections by Dr davis, and those do seem to help quite a bit giving her better than 70% improvement. She has had a few of these. We discussed her recovery again and I think she has a very complicated gait which has caused through the years her issues with her SI joint. She also had a hip replacement on the right side so there is a combination of factors. Her CT scan shows a large osteophyte anteriorly on her SI joint which could reflect the inflammation over the years. If she continues to get good improvement with the injections then I think we should just can 10 you doing that until they stop becoming meaningful and then we could consider SI joint fusion. If it gets to that point I will review the case again with Dr. Espino. Total amount of time spent in this visit was 20 minutes in discussion of symptoms, lumbar CT at [place] imaging results and subsequent plan of care Rajesh Espino MD,PhD [facility] Coding Level of Care Code Est Pt Level 3 (46958) Diagnoses Chronic SI joint pain M53.3; G89.29
--- OUTSIDE RECORDS SUMMARY | 2024-08-07 16:22 | XMS_ITS | Clinical Summary ---
Author Organization [facility] Address [address] [place] [address] Care Team Providers Care Animal Feeder Name Role Phone Kacey Parra PA-C Primary Care Provider Allergies Active Allergy Reactions Criticality Noted Date Comments Scopolamine Nausea Only,Other (S ee Comments) Medium 01/01/2019 Double vision Medications Medication Sig Dispensed Refills Start Date End Date Status omeprazole (PriLOSEC) 20 MG capsule Take 20 mg by mouth daily. 0 Active amoxicillin (AMOXIL) 500 MG tablet Take 4 tabs 1 hour prior to dental appointment 20 tablet 3 01/15/2019 Active fluticasone (FLONASE) 50 MCG/ACT nasal spray daily as needed. 0 03/18/2019 Active sertraline (ZOLOFT) 100 MG tablet Take 100 mg by mouth daily. 0 09/26/2021 Active sertraline (ZOLOFT) 25 MG tablet Take 25 mg by mouth daily. 0 07/19/2021 Active valACYclovir (VALTREX) 500 MG tablet Take 500 mg by mouth daily as needed. 0 Active Magnesium 400 MG CAPS Take 1 tablet by mouth daily. 0 Active Multiple Vitamins-Minerals (WOMENS 50+ MULTI VITAMIN/MIN PO) Take 1 tablet by mouth daily. 0 Active Acetaminophen (TYLENOL ARTHRITIS PAIN PO) Take 2 tablets by mouth daily as needed. 0 Active methocarbamol (ROBAXIN) 750 MG tablet Take 1 tablet (750 mg total) by mouth every 6 (six) hours as needed. 45 tablet 0 10/20/2021 Active aspirin EC 81 MG EC tablet Take 1 tablet (81 mg total) by mouth 2 (two) times a day after meals. Please fill full quantity for completion of post-operative DVT prophylaxis. 84 tablet 0 10/20/2021 Active senna-docusate (PERICOLACE) 8.6-50 MG Take 1 tablet by mouth 2 (two) times a day. 30 tablet 0 10/20/2021 Active HYDROmorphone (Dilaudid) 2 MG tablet 1 tab p.o. every 4-6 hours as needed for moderate to severe pain. May fill for lesser quantity. Not to be taken with any other narcotic pain medication. 30 tablet 0 10/26/2021 Active celecoxib (CeleBREX) 200 MG capsule TAKE 1 CAPSULE BY MOUTH EVERY DAY 30 capsule 6 01/15/2022 Active Active Problems Problem Noted Date Diagnosed Date Shoulder impingement, right 03/27/2019 + 01/15/2019 Arthritis of left knee 01/01/2019 Arthritis of knee, left 12/03/2017 Pain of left calf 05/16/2017 Acute pain of left knee 04/05/2017 It band syndrome, left 04/05/2017 Resolved Problems Problem Noted Date Diagnosed Date Resolved Date Traumatic incomplete tear of right rotator cuff 03/27/2019 04/09/2019 Immunizations Name Administration Dates Next Due Covid-19 (Pfizer) Dilution Required 03/10/2021,0 05/16/2020,04/25/2020 Family History Medical History Relation Name Comments Cancer Brother PANCREATIC Heart disease Brother [place] with stent Heart disease Father CABG Leukemia Father Heart disease Mother CHF Cancer Sister 1 BREAST Arthritis Sister 2 Heart disease Sister 2 KS X 2 Hyperlipidemia Sister 2 GI problems Sister 3 Kidney disease Sister 4 TRANSPLANT Cancer Sister 5 Breast Heart disease Sister 5 PM Relation Name Status Comments Brother Alive Father (Age 64) Leukemia Mother (Age 70) CHF Sister 1 Alive Sister 2 Alive Sister 3 Alive Sister 4 Alive Sister 5 Alive Social History Tobacco Use Types Packs/Day Years Used Date Smoking Tobacco: Former Cigarettes 1 1 Q uit: 12/02/1970 Smokeless Tobacco: Never Alcohol Use Standard Drinks/Week Comments No 0 (1 standard drink = 0.6 oz pur e alcohol) Sex and Gender Information Value Date Recorded Sex Assigned at Female 12/02/2018 3:46 PM EDT Gender Identity Female 12/02/2018 3:46 PM EDT Sexual Orientation Straight 10/19/2021 5: 55 AM EDT Job Start Date Occupation Industry Not on file Not on file Not on file Last Filed Vital Signs Vital Sign Reading Time Taken Comments Blood Pressure 120/65 10/20/2021 7:43 AM EDT Pulse 77 10/20/2021 7:43 AM EDT Temperature 37.5 ??C (99.5 ??F) 10/20/2021 7:43 AM ED T Respiratory Rate 16 10/20/2021 7:43 AM EDT Oxygen Saturation 97% 10/20/2021 7:43 AM EDT Inhaled Oxygen Concentration - - Weight 68 kg (150 lb) 10/19/2021 5:51 AM EDT Height 162.6 cm (5' 4 ) 10/19/2021 5:51 AM EDT Body Mass Index 25.75 10/19/2021 5:51 AM EDT Plan of Treatment Health Maintenance Due Date Last Done Comments Hepatitis C Screening 1955 Depression Screening 1967 Preventative Health Evaluation 1973 DTap / Tdap / Td (1 - Tdap) 1974 Colon Cancer Screening (Colonoscopy) 2000 Breast Cancer Screening (Mammogram) 2005 Shingrix-Zoster Vaccine (1 o f 2) 2005 BMI Counseling 12/11/2019 12/10/2018 Fall Risk Assessment 2020 Osteoporosis Screening (DEXA Scan) 2020 Pneumococcal Vaccine (1 of 1 - PCV) 2020 COVID-19 Vaccine (4 - 2023-2 5 season) 2024 03/10/2021, 05/16/2020, 04/25/2020 Influenza Vaccine (#1) 2024 RSV Adult > 60+ Yrs or (1 - 1-dose 75+ series) 2030 Hepatitis B Vaccines Aged Out No long er eligible based on patient's age to complete this topic RSV Ped < 20 months Aged Out No longe r eligible based on patient's age to complete this topic Medical Devices Implanted Type Area Remediation [employer]anal[employer] Consultant Device Identifier Shelf Expiration Date Model / Serial / Lot Cement Simplex P Radiopaque Full Dose Bone 10 Pack - [id number] - [id number] Implanted:Qty: 1 on 01/01/2019 by Tom Pederson MD at [facility] Left: Knee [employer] 01/03/2021 6191-1-010 / / [id number] Cement Simplex P Radiopaque Full Dose Bone 10 Pack - [id number] - [id number] Implanted:Qty: 1 on 01/01/2019 by Tom Pederson MD at [facility] Left: Knee [employer] 01/03/2021 6191-1-010 / / [id number] Component Triathlon 4 Cemented Posterior Stabilized Femoral - [id number] - [id number] Implanted:Qty: 1 on 01/01/2019 by Tom Pederson MD at [facility] Left: Knee [employer] 08/06/2023 5515-F-401 / / [id number] Peg Triathlon Modular Fix Distal Femur Knee - [id number] - [id number] Implanted:Qty: 1 on 01/01/2019 by Tom Pederson MD at [facility] Left: Knee [employer] 06/09/2023 5575-X-000 / / [id number] Baseplate Triathlon 3 Cemented Primary Tibial Knee - 317264 - [id number] Implanted:Qty: 1 on 01/01/2019 by Tom Pederson MD at [facility] Left: Knee [employer] 07/14/2023 5520-B-300 / / [id number] Component Triathlon 9mm 29mm Asymmetric X3 Ptlar Knee - 081264 - [id number] Implanted:Qty: 1 on 01/01/2019 by Tom Pederson MD at [facility] and [facility] Left: Knee [employer] 10/19/2023 5551-G-299 / / [id number] Triathlon Ps Insert - Size 3 12mm X3 - [id number] - [id number] Implanted:Qty: 1 on 01/01/2019 by Tom Pederson MD at [facility] and [facility] Left: Knee [employer]EL [employer] 02/05/2023 5532-G-312 -E / / [id number] Lp Hex Screw 6.5x30mm [facility] [id number] 78 - [id number] Implanted:Qty: 1 on 10/19/2021 by Tom Pederson MD at [facility] Right: Hip [employer] [id number] 07/19/2026 1933-8438 / / [id number] Hip Insrt X3 Trident 0d 36mm E Stry-Howm 835-48-86v-200 921 - [id number] Implanted:Qty: 1 on 10/19/2021 by Tom Pederson MD at [facility] and [facility] Right: Hip [employer] [id number] 03/02/2025 623-10-36E / / [id number] Impl Set Bead 2.0mm Vit Dall Miles Stry-Howm 5824-7-492-114 128 - [id number] Implanted:Qty: 1 on 10/19/2021 by Tom Pederson MD at [facility] Right: Hip [employer] [id number] 08/16/2026 6704-0-520 / / [id number] Hip Stem Acco Ii Sz5 132deg Stry-Howm 6472-6503-2633 85 - [id number] Implanted:Qty: 1 on 10/19/2021 by Tom Pederson MD at [facility] Right: Hip [employer] [id number] 06/20/2026 6031-1786 / / [id number] Hip Head Delta Biolox 36mm -5 Stry-Howm 9654-6-579-549 190 - [id number] Implanted:Qty: 1 on 10/19/2021 by Tom Pederson MD at [facility] Right: Hip [employer] [id number] 08/24/2026 6570-0-036 / / [id number] Tritanium Cluster Hole Shell 54mm Stry-Howm 680-80-61x-772 453 - [id number] Implanted:Qty: 1 on 10/19/2021 by Tom Pederson MD at [facility] and [facility] Right: Hip [employer] [id number] 07/04/2026 702-04-54E / / [id number] Lp Hex Screw 6.5x30mm Stry-Howm 3831-0855-8545 78 - [id number] Implanted:Qty: 1 on 10/19/2021 by Tom Pederson MD at [facility] Right: Hip [employer] [id number] 07/19/2026 4116-8723 / / WTAE Advance Directives For more information, please contact: [phone] Latest Code Status on File Code Status Date Activated Date Inactivated Comments Full Code 10/19/2021 9:32 AM 10/20/2021 6:40 PM This code status was ascertained in the following way: discussion with patient . Code Status History Code Status Date Activated Date Inactivated Comments Full Code 10/19/2021 5:08 AM 10/19/2021 9:32 AM This code status was ascertained in the following way: discussion with patient . Full Code 01/01/2019 8:04 AM 01/02/2019 4:57 PM This code status was ascertained in the following way: discussion with patient . Full Code 01/01/2019 5:39 AM 01/01/2019 8:04 AM This code status was ascertained in the following way: discussion with patient . Care Teams Animal Feeder Relationship Specialty Start Date End Date Kacey Parra PA-C [address] [place] [phone] PCP - General Medical Services 10/12/21
--- OUTSIDE RECORDS SUMMARY | 2024-08-07 16:22 | XMS_ITS | Clinical Summary ---
Author Organization [facility] [address] [facility] lding Address [address] [place] [address] Phone Care Team Providers Care Right Of Way Cutter Name Role Phone Karen Hart MD Primary Care Provider Allergies Active Allergy Reactions Criticality Noted Date Comments Other Nausea And Vomiting 08/10/2009 Headaches, nausea, vomiting Scopolamine Nausea Only,Other Medium 01/01/2019 Double vision Medications HYDROmorphone (DILAUDID) 4 mg tablet 10/28/19 24 Active ondansetron ODT (ZOFRAN-ODT) 4 mg disintegrating tablet 10/17/19 24 Active valACYclovir (VALTREX) 500 mg tablet TAKE 1 TABLET BY MOUTH 3 TIMES DAILY NEEDED FOR OTHER (COLD SORES). 07/19/19 24 Active fluticasone propionate (FLONASE) 50 mcg/actuation nasal spray SPRAY 1 SPRAY BY NASAL ROUTE EVERY DAY 08/04/19 23 Active magnesium aspart,citrate,oxi de (Triple Magnesium Complex) 400 mg magnesium capsule Take 1 capsule by mouth 1 (one) time each day. Active acetaminophen (TYLENOL 8 HOUR) 650 mg 8 hr tablet Take 2 tablets (1,300 mg total) by mouth every 8 (eight) hours if needed. Active Lactobacillus acidophilus (PROBIOTIC ORAL) Take by mouth. Active gabapentin (NEURONTIN) 300 mg capsule Take 1 capsule (300 mg total) by mouth 3 (three) times a day. 90 capsule 05/05/20 24 Active omeprazole (PriLOSEC) [address] capsule TAKE 1 CAPSULE BY MOUTH EVERY DAY 90 capsule 1 06/17/19 25 Active atorvastatin (LIPITOR) 20 mg tablet TAKE 1 TABLET BY MOUTH EVERY DAY 90 tablet 1 06/17/19 25 Active sertraline (ZOLOFT) 25 mg tablet TAKE 1 TAB DAILY WITH 100MG FOR TOTAL OF 125MG. 90 tablet 06/24/19 25 Active sertraline (ZOLOFT) 100 mg tablet TAKE 1 TABLET BY MOUTH EVERY DAY 90 tablet 07/22/19 25 Active celecoxib (CeleBREX) 200 mg capsule TAKE 1 CAPSULE BY MOUTH EVERY DAY 90 capsule 07/23/19 25 Active methocarbamoL (ROBAXIN) 750 mg tablet TAKE 1 TABLET BY MOUTH 3 TIMES A DAY. 90 tablet 07/22/19 25 Active sertraline (ZOLOFT) 100 mg tablet Take 1 tablet (100 mg total) by mouth 1 (one) time each day. 09/27/19 22 025 Discontinued methocarbamoL (ROBAXIN) 750 mg tablet Take 1 tablet (750 mg total) by mouth 3 (three) times a day. 90 tablet 05/19/19 25 025 Discontinued celecoxib (CeleBREX) 200 mg capsule TAKE 1 CAPSULE BY MOUTH EVERY DAY 90 capsule 06/04/19 25 025 Discontinued Active Problems Problem Noted Date Diagnosed Date Status post total hip replacement, right 022 Lumbar spinal stenosis 04/10/2021 Overview (02/07/2024): Last Assessment & Plan: Ms. Baker returns with similar lower back pain worst on the right above her buttock, describing it as feeling like there is a fist pushed into my back . Her walking tolerance is about 1 mile then she has to lean forward at the waist resting her hands on her knees. Occasionally the pain radiates around to her right groin. She denies bowel or bladder incontinence denies any weakness. She is status post a right total hip replacement by Dr. Pederson in October 2021 from which she recovered well. She continues to use an inversion table, see chiropractic treatment, acupuncture and stretching. She takes Celebrex, methocarbamol and Tylenol 2 g/day. On exam, she is tender over the right SI joint. Seated SLR is negative, strength 5/5, sensation to light touch intact. We discussed again her lumbar spine MRI from April 2021 showing severe degenerative disc disease at L2-3 and L4-5 with spinal listhesis at L4-5. There is severe central stenosis at L3-4. Any surgical intervention would probably involve a 3 level fusion given the scoliosis. She is still quite active though the 1 mile limitation is quite bothersome to her. She would like to try anything else and I recommended a right SI joint injection. Depending on her response, she could next try either trigger point injections or dry needling at pain management. 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 Pure hypercholesterolemia 06/26/2005 Asthma 06/26/2005 Allergic rhinitis 06/26/2005 Immunizations Name Administration Dates Next Due Influenza Quadravalent, 0.5m l (Fluzone High-dose) 65yo and older 02/16/2023 Influenza trivalent, 0.5mL ( Fluzone High-dose) 65yo and older 02/21/2022 Influenza trivalent, with pr eservative (Fluzone; Afluria) 6mo and older 02/05/2015,02/09/2013,01/30/2012,03/04,02/01/2008,02/05/2007 PPD Test 06/26/2005 [employer] SARS-CoV-2 COVID-19, mRNA, LNP-S, preservative free 03/10/2021,05/16/2020,04/25/2020 Pneumococcal polysaccharide 23 valent (Pneumovax 23) 2yo and older 06/15/1999 Td Tetanus diptheria (Tdvax) 7yo and older 11/09/2021,06/15/1999 Tdap Tetanus diptheria acell ular pertussis (Boostrix; Adacel) 7yo and older 05/16/2011 Surgical History Surgery Date Site/Laterality Comments BREAST BIOPSY PROCEDURE: UT BIOPSY BREAST OPEN INCISIONAL; COMMENT: Benign OTHER SURGICAL HISTORY 12/2007 PROCEDURE: MAMMOGRAM TONSILLECTOMY PROCEDURE: HISTORICAL TONSILLECTOMY; COMMENT: age 19 SALPINGOOPHORECTOMY PROCEDURE: UT LAPAROSCOPY W/RMVL ADNEXAL STRUCTURES; COMMENT: Left age 19 APPENDECTOMY PROCEDURE: UT APPENDECTOMY; COMMENT: 8th grade COLONOSCOPY 11/2005 PROCEDURE: UT COLONOSCOPY STOMA DX INCLUDING COLLJ SPEC SPX; COMMENT: normal, due 2015 KNEE ARTHROSCOPY 09/04/2012 PROCEDURE: UT ARTHROSCOPY AID TX SPINE&/FX KNEE W/O FIXJ; COMMENT: left with partial medial meniscectomy and chondroplast BREAST BIOPSY PROCEDURE: BX BREAST; PERC NEEDLE CORE W/IMAG GUID; COMMENT: LT. BREAST BX-BENIGN TOTAL KNEE ARTHROPLASTY 01/01/2019 Left PROCEDURE: HISTORICAL TOTAL KNEE REPLACE; COMMENT: Dr. Pederson TOTAL KNEE ARTHROPLASTY 01/01/2019 Left PROCEDURE: HISTORICAL TOTAL KNEE REPLACE; COMMENT: Dr. Pederson OTHER SURGICAL HISTORY 06/23/2019 Right PROCEDURE: ARTHROSCOPY SHOULDER SURGI; COMMENT: Dr. Pederson HIP ARTHROPLASTY 2021 Right PROCEDURE: HISTORICAL HIP REPLACEMENT Medical History Medical History Date Comments Allergic rhinitis, cause unspecified DX:Allergic rhinitis, cause unspecified Depressive disorder, not els ewhere classified 07/10/2006 DX:Depressive disorder, not elsewhere classified Pure hypercholesterolemia DX:Pur e hypercholesterolemia Unspecified asthma(493.90) 12/25/2006 DX:Un specified asthma(493.90) DJD (degenerative joint dise ase) of knee 03/19/2008 DX:DJD (degenerative joint d isease) of knee; COMMENT: and shoulders Anxiety 08/30/2010 DX:Anxiety Cervicalgia DX:Cervicalgia Esophageal reflux 11/26/2005 DX:Esophageal reflux; COMMENT: Upper GI endoscopy 11.26.05 was normal on therapy with PPI medications. Family history of breast can cer in sister 02/05/2011 DX:Family history of breast cancer in sister; COMMENT: Two sisters, age 50 and 60. Family History Medical History Relation Name Comments Breast cancer Aunt mat maternal Heart attack Father CABG Heart attack Mother leukemia, CABG Breast cancer Sister 1 X 2-48 55 Two sisters, a ge 50 and 60, BrCA neg Other: pacemaker Sister 2 Other: renal transplant Sister 3 Relation Name Status Comments Aunt mat Brother Alive NE Father NE Mother lymphoblastic l eukemia and coronary disease Sister 1 X 2-48 55 Alive hypercholestero lemia Sister 2 Sister 3 Sister 4 Alive Kidney transplant/hypercholesterolemia/hypercholesterolemia Son Alive asthma Social History Tobacco Use Types Packs/Day Years Used Date Smoking Tobacco: Former Cigarettes Q uit: 11/13/1970 Smokeless Tobacco: Never Tobacco Cessation:Counseling Given: Not Answered Alcohol Use Standard Drinks/Week Comments No 0 (1 standard drink = 0.6 oz pur e alcohol) Comments No Sex and Gender Information Value Date Recorded Sex Assigned at Not on file Legal Sex Female 8:40 PM EST Gender Identity Not on file Sexual Orientation Not on file Obstetrics History Last Filed Vital Signs Vital Sign Reading Time Taken Comments Blood Pressure 110/62 03/18/2024 9:59 AM EST Pulse 78 03/18/2024 9:59 AM EST Temperature 36.5 ??C (97.7 ??F) 03/18/2024 9:59 AM ES T Respiratory Rate - - Oxygen Saturation - - Inhaled Oxygen Concentration - - Weight 66.7 kg (147 lb) 03/18/2024 9:59 AM EST Height 162.6 cm (5' 4 ) 03/18/2024 9:59 AM EST Body Mass Index 25.23 03/18/2024 9:59 AM EST Plan of Treatment Upcoming Encounters Date Type Department Care Team (Late st Contact Info) Description 09/15/2024 11:15 AM EDT Office Visit Adult Medicine - [place] [address] [place] [address] Kacey Parra, JANICE [address] [place] [address] 09/23/2024 1:20 PM EDT Appointment Radiology Department - [address] [phone] Health Maintenance Due Date Last Done Comments Pneumococcal Vaccine: 50+ Years (2 of 2 - PCV) 06/15/2000 06/15/1999 Zoster Vaccines (2 of 2) 04/05/2021 02/08/2021 Social Influencers of Health Screening 04/12/2022 COVID-19 Vaccine ( season) 2024 03/10/2021, 05/16/2020, 04/25/2020 Depression Screening 09/15/2024 09/16/2023 Falls Risk Assessment 09/15/2024 09/16/2023 Medicare Annual Wellness Visit 09/15/2024 09/16/2023 Breast Cancer Screening 09/16/2025 09/17/19, 09/17/2023, 09/12/2022, Additional history exists Cholesterol Screening (Lipid Panel) 05/05/2029 05/05/2024, 06/04/2023 DTaP,Tdap,and Td Vaccines (4 - Td or Tdap) 11/10/2031 11/09/2021, 05/16/2011, 06/15/1999 Colorectal Cancer Screening: Colonoscopy 05/29/2032 05/29/2022 Osteoporosis Screening (Bone Density Screening) 09/12/2032 09/12/2022 Hepatitis C Screening Completed 03/03/2014 RSV Immunization Adult Patients Completed 02/16/2023 Influenza Vaccine Completed 02/17/2024, , 02/21/2022, Additional history exists HIB Vaccines Aged Out No longer eligi ble based on patient's age to complete this topic HPV Vaccines Aged Out No longer eligi ble based on patient's age to complete this topic Hepatitis A Vaccines Aged Out No long er eligible based on patient's age to complete this topic Hepatitis B Vaccines Aged Out No long er eligible based on patient's age to complete this topic IPV Vaccines Aged Out No longer eligi ble based on patient's age to complete this topic MMR Vaccines Aged Out No longer eligi ble based on patient's age to complete this topic Meningococcal ACWY Vaccine Aged Out N o longer eligible based on patient's age to complete this topic Meningococcal B Vacine Aged Out No lo nger eligible based on patient's age to complete this topic RSV Immunization Patients Under 20 months Aged Out No longer eligible based on patient's age to complete this topic Varicella Vaccines Aged Out No longer eligible based on patient's age to complete this topic Medical Devices Implanted Type Area Public Transportation Inspector Device Identifier Shelf Expiration Date Model / Serial / Lot Cement Simplex P Radiopaque Full Dose Bone 10 Pack - [id number] Implanted:Qty: 1 on 01/01/2019 by Tom Pederson MD Left: Knee [employer] 01/03/2021 6191-1-010 / / [id number] Cement Simplex P Radiopaque Full Dose Bone 10 Pack - [id number] Implanted:Qty: 1 on 01/01/2019 by Tom Pederson MD Left: Knee [employer] 01/03/2021 6191-1-010 / / [id number] Component Triathlon 4 Cemented Posterior Stabilized Femoral - [id number] Implanted:Qty: 1 on 01/01/2019 by Tom Pederson MD Left: Knee [employer] 08/06/2023 5515-F-401 / / [id number] Peg Triathlon Modular Fix Distal Femur Knee - [id number] Implanted:Qty: 1 on 01/01/2019 by Tom Pederson MD Left: Knee [employer] 06/09/2023 5575-X-000 / / [id number] Baseplate Triathlon 3 Cemented Primary Tibial Knee - [id number] Implanted:Qty: 1 on 01/01/2019 by Tom Pederson MD Left: Knee [employer] 07/14/2023 5520-B-300 / / [id number] Component Triathlon 9mm 29mm Asymmetric X3 Ptlar Knee - [id number] Implanted:Qty: 1 on 01/01/2019 by Tom Pederson MD Left: Knee [employer] 10/19/2023 5551-G-299 / / [id number] Triathlon Ps Insert - Size 3 12mm X3 - [id number] Implanted:Qty: 1 on 01/01/2019 by Tom Pederson MD Left: Knee [employer] 02/05/2023 5532-G-312 -E / / [id number] Lp Hex Screw 6.5x30mm Stry-Howm [id number] Implanted:Qty: 1 on 10/19/2021 by Tom Pederson MD Right: Hip [employer] [id number] 07/19/2026 7685-1701 / / [id number] Hip Insrt X3 Trident 0d 36mm E Stry-Howm [id number] Implanted:Qty: 1 on 10/19/2021 by Tom Pederson MD Right: Hip [employer] [id number] 03/02/2025 623-10-36E / / [id number] Impl Set Bead 2.0mm Vit Dall Miles Stry-Howm [id number] Implanted:Qty: 1 on 10/19/2021 by Tom Pederson MD Right: Hip [employer] [id number] 08/16/2026 6704-0-520 / / [id number] Hip Stem Acco Ii Sz5 132deg Stry-Howm [id number] 85 Implanted:Qty: 1 on 10/19/2021 by Tom Pederson MD Right: Hip [employer] [id number] 06/20/2026 5976-5919 / / [id number] Hip Head Delta Biolox 36mm -5 Stry-Howm [id number] 190 Implanted:Qty: 1 on 10/19/2021 by Tom Pederson MD Right: Hip [employer] [id number] 08/24/2026 6570-0-036 / / [id number] Tritanium Cluster Hole Shell 54mm Stry-Howm [id number] Implanted:Qty: 1 on 10/19/2021 by Tom Pederson MD Right: Hip [employer] [id number] 07/04/2026 702-04-54E / / [id number] Lp Hex Screw 6.5x30mm Stry-Howm [id number] 78 Implanted:Qty: 1 on 10/19/2021 by Tom Pederson MD Right: Hip [employer] [id number] 07/19/2026 6444-4761 / / WTAE Procedures Procedure Name Priority Date/Time Associated Diagnosis Comments LIPID PANEL WITH REFLEX TO DIRECT LDL Routine 05/05/2024 11:48 AM EST Pure hypercholesterolemia SCREENING MAMMOGRAPHY BI 2-VIEW BREAST INC CAD Routine 09/17/2023 2:28 PM EDT Encounter for screening mammogram for malignant neoplasm of breast DEPRESSION SCREENING Routine 09/16/2023 FALLS RISK ASSESSMENT Routine 09/16/2023 DXA BONE DENSITY STUDY 1+ SITS AXIAL SKEL Routine 09/12/2022 3:19 PM EDT Encounter for screening for osteoporosis COLONOSCOPY Routine 05/29/2022 HEPATITIS C SCREENING Routine 03/03/2014 from Last 3 Months or Most Recently Relevant to Health Maintenance Results * (ABNORMAL) Lipid panel with reflex to direct LDL (05/05/2024 11:48 AM EST) Cholesterol 244(H) 0 - 200 mg/dL LAB CHEMISTRY METHOD 05/05/2024 2:50 PM EST [facility] Triglycerides 128 0 - 150 mg/dL LAB CHEMISTRY METHOD 05/05/2024 2:50 PM [facility] HDL 103 >=40 mg/dL LAB CHEMISTRY METHOD 05/05/2024 2:50 PM [facility] LDL Calculated 115(H) 0 - 100 mg/dL LAB CHEMISTRY METHOD 05/05/2024 2:50 PM [facility] VLDL Cholesterol Star 25.6 mg/dL LAB CHEMISTRY METHOD 05/05/2024 2:50 PM [facility] Non HDL Chol. (LDL+VLDL) 141 <145 mg/dL LAB CHEMISTRY METHOD 05/05/2024 2:50 PM [facility] Chol/HDL Ratio 2.4 0.0 - 4.4 LAB CHEMISTRY METHOD 05/05/2024 2:50 PM [facility] Blood Venous blood specimen / Unknown Venipuncture / Unknown 05/05/2024 11:48 AM EST 05/05/2024 11:48 AM EST us Kacey CAMACHO LAB BLOOD ORDERABLES Final Result [facility] [address] [place] [address], * SCREENING MAMMOGRAPHY BI 2-VIEW BREAST INC CAD (09/17/2023 2:28 PM EDT) Anatomical Region Laterality Modality Radiographic Mattie ging 09/12/2022 2:49 PM EDT Narrative 09/18/2023 10:28 AM EDT This is a summary report. The complete report is available in the patient's medical record. If you cannot access the medical record, please contact the sending organization for a detailed fax or copy. BILATERAL 3D DIGITAL SCREENING MAMMOGRAM History: Routine screening. ??No current breast complaints. ??Family history of breast cancer in sister and aunt Comparison: Multiple priors dating back to 07/16/2019 Technique: Bilateral full-field digital 3D mammography was performed using standard CC and MLO projections CAD was used to evaluate this mammogram. Findings: Density: ?? The breasts are heterogeneously dense which may obscure small masses-C RIGHT: No suspicious masses, groups of microcalcification or areas of architectural distortion identified. Stable typically benign parenchymal asymmetries LEFT: No suspicious masses, groups of microcalcifications or areas of architectural distortion identified. Stable typically benign parenchymal asymmetries. ??Biopsy clips within the lower inner breast. IMPRESSION: : 1. ??No mammographic evidence of malignancy. BI-RADS Category 2 benign findings Recommendation: Routine annual screening mammography is recommended Procedure Note Erica Nash MD - 12/23/2023 This is a summary report. The complete report is available in thepatient's medical record. If you cannot access the medical record, pleasecontact the sending organization for a detailed fax or copy. BILATERAL 3D DIGITAL SCREENING MAMMOGRAM History: Routine screening. No current breast complaints. Family historyof breast cancer in sister and aunt Comparison: Multiple priors dating back to 07/16/2019 Technique: Bilateral full-field digital 3D mammography was performed usingstandard CC and MLO projections CAD was used to evaluate this mammogram. Findings: Density: The breasts are heterogeneously dense which may obscure smallmasses-C RIGHT: No suspicious masses, groups of microcalcification or areas ofarchitectural distortion identified. Stable typically benign parenchymalasymmetries LEFT: No suspicious masses, groups of microcalcifications or areas ofarchitectural distortion identified. Stable typically benign parenchymalasymmetries. Biopsy clips within the lower inner breast. IMPRESSION: : 1. No mammographic evidence of malignancy. BI-RADS Category 2 benign findings Recommendation: Routine annual screening mammography is recommended Karen Hart MD IMG XR PROCEDURES Irma l Result * Falls Risk Assessment (09/16/2023) Falls Risk Assessment ABSTRACTED Historical Provider MD HEALTH MAINTENANCE Final Result * Depression Screening (09/16/2023) Depression Screening ABSTRACTED Historical Provider MD HEALTH MAINTENANCE Final Result * DXA BONE DENSITY STUDY 1+ SITS AXIAL SKEL (09/12/2022 3:19 PM EDT) Anatomical Region Laterality Modality Bone Densitometr y 11/09/2021 4:07 PM EDT Narrative 09/12/2022 5:43 PM EDT BONE DENSITY ? Lumbar Spine T-score is +2.1 ?? (SD relative to 20-29 y/o adult) Z-score is +4.0 ??(SD relative to age matched peers) This is normal by criteria defined by the WHO. Left Hip T-score is -1.5 Z-score is +0.1 This is consistent with osteopenia by criteria defined by the WHO. Impression: Based on the World Health Organization criteria, Brigid Srivastava should be classified as having osteopenia. This patient has a 15% risk of major osteoporotic fracture and a 1.9% risk of hip fracture over the next 10 years. (World Health Organization Fracture Risk Assessment) [facility] Department of Internal Medicine recommends using National Osteoporosis Foundation (NOF) guidelines in treatment decisions related to osteoporosis. NOF guidelines suggest considering treatment for postmenopausal women and men aged 50 or older presenting with the following: History of hip or vertebral fracture. T-score less than or equal to -2.5 (DXA) at the femoral neck, total hip, or spine, after appropriate evaluation to exclude secondary causes. Low bone mass (T-score between -1.0 and -2.5 at the femoral neck or spine) AND a 10-year probability of a hip fracture greater than or equal to 3% OR a 10-year probability of a major osteoporosis-related fracture greater than or equal to 20% based on the [place]-adapted WHO algorithm Please note that all treatment decisions require clinical judgment and consideration of individual patient factors, including patient preferences, co-morbidities, previous drug use, risk factors not captured in the FRAX model (e.g., frailty, falls, vitamin D deficiency, increased bone turnover, interval significant decline in bone density) and possible under- or over-estimation of fracture risk by FRAX. Procedure Note Celia Vivas MD - 06/10/2023 BONE DENSITY Lumbar Spine T-score is +2.1 (SD relative to 20-29 y/o adult) Z-score is +4.0 (SD relative to age matched peers) This is normal by criteria defined by the WHO. Left Hip T-score is -1.5 Z-score is +0.1 This is consistent with osteopenia by criteria defined by the WHO. Impression: Based on the World Health Organization criteria, Brigid allenbe classified as having osteopenia. This patient has a 15% risk of majorosteoporotic fracture and a 1.9% risk of hip fracture over the next 10years. (World Health Organization Fracture Risk Assessment) [facility] Department of Internal Medicine recommendsusing National Osteoporosis Foundation (NOF) guidelines in treatmentdecisions related to osteoporosis. NOF guidelines suggest consideringtreatment for postmenopausal women and men aged 50 or older presentingwith the following: History of hip or vertebral fracture. T-score less than or equal to -2.5 (DXA) at the femoral neck, total hip,or spine, after appropriate evaluation to exclude secondary causes. Low bone mass (T-score between -1.0 and -2.5 at the femoral neck or spine)AND a 10-year probability of a hip fracture greater than or equal to 3% ORa 10-year probability of a major osteoporosis-related fracture greaterthan or equal to 20% based on the [place]-adapted WHO algorithm Please note that all treatment decisions require clinical judgment andconsideration of individual patient factors, including patientpreferences, co-morbidities, previous drug use, risk factors not capturedin the FRAX model (e.g., frailty, falls, vitamin D deficiency, increasedbone turnover, interval significant decline in bone density) and possibleunder- or over-estimation of fracture risk by FRAX. Kacey CAMACHO IMG DXA PROCEDURES Final R esult * Colonoscopy (05/29/2022) [facility] Colonoscopy no interpretation , abstracted Anatomical Region Laterality Modality Other Historical Provider HEALTH MAINTENANCE Final Result * Hepatitis C Screening (03/03/2014) [facility] Hepatitis C Screening ABSTRACTED [facility] Provider HEALTH MAINTENANCE Final Result from Last 3 Months or Most Recently Relevant to Health Maintenance Insurance MEDICARE [facility] Member Subscriber Plan / Payer (Ef fective 2021-Present) Name:Atif Esha Pipo Relation to Subscriber:Self Name:SrivastavaEsha Pipo Payer ID:[id number] Type:Not on file Address: [address] [place] [id number] Advance Directives Documents on File Type Date Recorded 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 Health Care Decision (hx) 06/24/2019 AD BOND DIRECTIVE Health Care Decision (hx) 06/24/2019 AD BOND DIRECTIVE Health Care Decision (hx) 06/24/2019 AD BOND DIRECTIVE Health Care Decision (hx) 06/24/2019 AD BOND DIRECTIVE Health Care Decision (hx) 06/24/2019 AD BOND DIRECTIVE Health Care Decision (hx) 06/24/2019 AD BOND DIRECTIVE Health Care Decision (hx) 06/24/2019 AD BOND DIRECTIVE Health Care Decision (hx) 06/24/2019 AD BOND DIRECTIVE Health Care Decision (hx) 06/24/2019 AD BOND DIRECTIVE Health Care Decision (hx) 06/24/2019 AD BOND DIRECTIVE Health Care Decision (hx) 06/24/2019 AD BOND DIRECTIVE Health Care Decision (hx) 06/24/2019 AD BOND DIRECTIVE Health Care Decision (hx) 06/24/2019 AD BOND DIRECTIVE Health Care Decision (hx) 06/24/2019 AD BOND DIRECTIVE Health Care Decision (hx) 06/24/2019 AD BOND DIRECTIVE Care Teams Right Of Way Cutter Relationship Specialty Start Date End Date Karen Hart MD [address] [place] [id number] PCP - General Internal Medicine 11/04/21
--- OUTSIDE RECORDS SUMMARY | 2024-08-07 16:22 | XMS_ITS ---
Author Name [facility] Organization Unknown Encounters Encounter Type Encounter Reason Primary Diagnosis Location Date Ambulatory [facility] 11/14/2022
== END 2024-08-07 15:34 | disposition home or self-care (01) ==
LOC: HO.HNS 14:54
PROVIDERS: PCP Physician Assistant Medical; Visit Provider Physician Assistant
DX: M53.3 Sacrococcygeal disorders, not elsewhere classified (principal); G89.29 Other chronic pain
CPT/HCPCS: 99213

== ENCOUNTER → 2024-08-07 14:53 | Outpatient (BNVA) | payer MEDICARE, SELFPAY | PROVIDERS: PCP Physician Assistant Medical; Visit Provider Physician Assistant | DX: M53.3 Sacrococcygeal disorders, not elsewhere classified (principal); G89.29 Other chronic pain | CPT/HCPCS: 99212 ==

== ENCOUNTER 2024-09-09 13:27 | Outpatient (AMB) | payer MEDICARE, SELFPAY ==
--- NOTE | 2024-09-09 13:30 | A.OFFVIS_ITS ---
Vital Signs 09/09/24 13:31 Height 5 ft 4 in Weight 160 lb BMI 27.5 Intake Visit Reasons: Left shoulder pain and weakness Intake Note: Esha Gonzalez is a 69 year old right hand dominant female who presents with complaints of progressively worsening left shoulder pain and weakness. The patient did undergo left shoulder arthroscopic surgery several years ago. She got fairly good relief from that surgery initially. The patient did re-injure shoulder approximately 1 year ago while lifting a heavy object. Since that time her symptoms have gotten worse in spite of continued non operative treatments. She has failed the last 6 weeks of conservative treatment which has included a home exercise program, physical therapy exercises, Celebrex, Tylenol, methocarbamol and gabapentin. The patient reports weakness when lifting her left hand above shoulder height. At this point her left shoulder pain is interfering with her activities of daily living and her ability to sleep well through the night. Allergies scopolamine Allergy (Intermediate, Verified 09/09/24 13:32) dizzy, nausea Medication List - Last Reconciled 09/09/24 by Tom Pederson MD atorvastatin 20 mg PO DAILY celecoxib 200 mg PO DAILY docusate sodium 100 mg PO BID ferrous sulfate (iron) 325 mg PO DAILY gabapentin 300 mg PO TID methocarbamol 750 mg PO TID omeprazole 20 mg PO DAILY@0630 ondansetron 4 mg PO Q6H PRN sennosides (Senna Lax) 8.6 mg PO BID PRN sertraline 25 mg PO DAILY sertraline 100 mg PO DAILY PFSH Medical History Osteopenia Asthma Elevated cholesterol GERD (gastroesophageal reflux disease) Depression DJD (degenerative joint disease) Anxiety Back pain Surgical History History of carpal tunnel surgery of right wrist Hx of unilateral oophorectomy H/O colonoscopy Hx of breast biopsy Hx of appendectomy Hx of tonsillectomy History of esophagogastroduodenoscopy (EGD) History of left knee replacement History of shoulder surgery History of right hip replacement Social History Household Members: Spouse Housing: House Are you a primary veterinarian laboratory animal care to a significant other at home: No Do you presently have visiting nurse or other home services: No Patient Tobacco Use Status: Never used Tobacco service: No Current occupational status: retired Physical Exam Vital Signs: BMI result Body Mass Index 27.5 Const Other: Well-nourished well-developed very friendly female awake alert and oriented x3 in no acute distress Extrem Other: Bilateral upper extremity examination shows good capillary refill, no skin lesions noted, normal sensation light touch Left shoulder examination shows slightly decreased range of motion when compared to her right shoulder, 4+ out of 5 strength with supraspinatus testing, positive impingement signs, no instability Results Reviewed Results Reviewed: X-rays of the patient's left shoulder show moderate acromioclavicular joint narrowing, a type 2 acromion, no acute bony abnormalities Assessment & Plan Assessment & Plan (1) Rotator cuff insufficiency of left shoulder: Code(s): M25.312 - Other instability, left shoulder Category: Medical Plan Ms. Srivastava presents with left shoulder pain and weakness due to impingement syndrome and possible rotator cuff tearing. Thus, I will send the patient for an MRI of her left shoulder for further evaluation. I will see her back once the MRI is completed to discuss the findings and treatment options. Feel free to call me at any time should questions regarding her orthopedic management arise. I spent 22 minutes in reviewing the patient's records and imaging studies, seeing the patient and documenting in the medical record. Orders: Orders XR shoulder LT min 2V 09/09/24 M25.512 - Pain in left shoulder MR shoulder LT wo con 09/09/24 M25.312 - Other instability, left shoulder Coding Level of Care Code Est Pt Level 3 (69650) Complex EM visit Add On G2211 Diagnoses Rotator cuff insufficiency of left shoulder M25.312
[2024-09-09 13:31] VITALS: BMI 27.5
--- OUTSIDE RECORDS SUMMARY | 2024-09-09 14:42 | XMS_ITS | Clinical Summary ---
Author Organization [facility] [address] [facility] lding Address [address] [place] [address] Phone Care Team Providers Care Aerial Gunner Name Role Phone Karen Hart MD Primary Care Provider Allergies Active Allergy Reactions Criticality Noted Date Comments Other Nausea And Vomiting 08/10/2009 Headaches, nausea, vomiting Scopolamine Nausea Only,Other Medium 01/01/2019 Double vision Medications HYDROmorphone (DILAUDID) 4 mg tablet 4 Active ondansetron ODT (ZOFRAN-ODT) 4 mg disintegrating tablet 4 Active valACYclovir (VALTREX) 500 mg tablet TAKE 1 TABLET BY MOUTH 3 TIMES DAILY NEEDED FOR OTHER (COLD SORES). 4 Active fluticasone propionate (FLONASE) 50 mcg/actuation nasal spray SPRAY 1 SPRAY BY NASAL ROUTE EVERY DAY 3 Active magnesium aspart,citrate,oxid e (Triple Magnesium Complex) 400 mg magnesium capsule [...] 3 (three) times a day. 90 capsule 4 Active omeprazole (PriLOSEC) [address] capsule TAKE 1 CAPSULE BY MOUTH EVERY DAY 90 capsule 1 5 Active atorvastatin (LIPITOR) 20 mg tablet TAKE 1 TABLET BY MOUTH EVERY DAY 90 tablet 1 5 Active sertraline (ZOLOFT) 25 mg tablet TAKE 1 TAB DAILY WITH 100MG FOR TOTAL OF 125MG. 90 tablet 5 Active sertraline (ZOLOFT) 100 mg tablet TAKE 1 TABLET BY MOUTH EVERY DAY 90 tablet 5 Active celecoxib (CeleBREX) 200 mg capsule TAKE 1 CAPSULE BY MOUTH EVERY DAY 90 capsule 5 Active methocarbamoL (ROBAXIN) 750 mg tablet TAKE 1 TABLET BY MOUTH 3 TIMES A DAY. 90 tablet 5 Active Active Problems Problem Noted Date Diagnosed [...] management. 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 Pure hypercholesterolemia 06/26/2005 Asthma 06/26/2005 Allergic rhinitis 06/26/2005 Immunizations Name Administration Dates Next Due Influenza Quadravalent, 0.5m l (Fluzone High-dose) 65yo and older 02/16/2023 Influenza trivalent, 0.5mL ( Fluzone High-dose) 65yo and older 02/21/2022 Influenza trivalent, with pr eservative (Fluzone; Afluria) 6mo and older 02/05/2015,02/09/2013,01/30/2012,03/04,02/01/2008,02/05/2007 PPD Test 06/26/2005 Guavas SARS-CoV-2 COVID-19, mRNA, LNP-S, preservative free 03/10/2021,05/16/2020,04/25/2020 Pneumococcal polysaccharide 23 valent (Pneumovax 23) 2yo and older 06/15/1999 Td Tetanus diptheria (Tdvax) 7yo and older 11/09/2021,06/15/1999 Tdap Tetanus diptheria acell ular pertussis (Boostrix; Adacel) 7yo and older 05/16/2011 Surgical History Surgery Date Site/Laterality Comments BREAST BIOPSY PROCEDURE: SC BIOPSY BREAST OPEN INCISIONAL; COMMENT: Benign OTHER SURGICAL HISTORY 12/2007 PROCEDURE: MAMMOGRAM TONSILLECTOMY PROCEDURE: HISTORICAL TONSILLECTOMY; COMMENT: age 19 SALPINGOOPHORECTOMY PROCEDURE: SC LAPAROSCOPY W/RMVL ADNEXAL STRUCTURES; COMMENT: Left age 19 APPENDECTOMY PROCEDURE: SC APPENDECTOMY; COMMENT: 8th grade COLONOSCOPY 11/2005 PROCEDURE: SC COLONOSCOPY STOMA DX INCLUDING COLLJ SPEC SPX; COMMENT: normal, due 2015 KNEE ARTHROSCOPY 09/04/2012 PROCEDURE: SC ARTHROSCOPY AID TX SPINE&/FX KNEE W/O FIXJ; [...] Name Status Comments Aunt mat Brother Alive IA Father IA Mother lymphoblastic l eukemia and coronary disease [...] 11:15 AM EDT Office Visit Adult Medicine [facility] [address] [place] [address] Kacey Parra PA [address] [place] [address] 09/23/2024 1:20 PM EDT Appointment Radiology Department - [address] [address] Health Maintenance Due Date Last Done Comments Pneumococcal Vaccine: 50+ Years (2 of 2 - PCV) 06/15/2000 06/15/1999 Zoster Vaccines (2 of 2) 04/05/2021 02/08/2021 Social Influencers of Health Screening 04/12/2022 COVID-19 Vaccine ( - season) 2024 03/10/2021, 05/16/2020, 04/25/2020 Depression Screening 09/15/2024 09/16/2023 Falls Risk Assessment 09/15/2024 09/16/2023 Medicare Annual Wellness Visit 09/15/2024 09/16/2023 Breast Cancer Screening 09/16/2025 09/17/19 24, 09/17/2023, 09/12/2022, Additional history exists Cholesterol Screening [...] age to complete this topic Meningococcal B Vaccine Aged Out No l onger eligible based on patient's age to complete this topic RSV Immunization Patients Under 20 months Aged Out No longer eligible based on patient's age to complete this topic Varicella Vaccines Aged Out No longer eligible based on patient's age to complete this topic Medical Devices Implanted Type Area Geothermal Electrical Engineer Device Identifier Shelf Expiration Date Model / Serial / Lot Cement Simplex P Radiopaque Full Dose Bone 10 Pack - [id number] Implanted:Qty: 1 on 01/01/2019 by Tom Pederson MD Left: Knee [employer] 01/03/2021 6191-1-010 / / [id number] Cement Simplex P Radiopaque Full Dose Bone 10 Pack - [id number] Implanted:Qty: 1 on 01/01/2019 by Tom Pederson MD Left: Knee [employer] 01/03/2021 6191-1-010 / / [id number] Component Triathlon 4 Cemented Posterior Stabilized Femoral - [id number] Implanted:Qty: 1 on 01/01/2019 by Tom Pederson MD Left: Knee [employer] 08/06/2023 5515-F-401 / / [id number] Peg Triathlon Modular Fix Distal Femur Knee - [id number] Implanted:Qty: 1 on 01/01/2019 by Tom Pederson MD Left: Knee [employer] 06/09/2023 5575-X-000 / / [id number] Baseplate Triathlon 3 Cemented Primary Tibial Knee - [id number] Implanted:Qty: 1 on 01/01/2019 by Tom Pederson MD Left: Knee [employer] 07/14/2023 5520-B-300 / / [id number] Component Triathlon 9mm 29mm Asymmetric X3 Ptlar Knee - [id number] Implanted:Qty: 1 on 01/01/2019 by Tom Pederson MD Left: Knee [employer] 10/19/2023 5551-G-299 / / [id number] Triathlon Ps Insert - Size 3 12mm X3 - [id number] Implanted:Qty: 1 on 01/01/2019 by Tom Pederson MD Left: Knee [employer] 02/05/2023 5532-G-312 -E / / [id number] Lp Hex Screw 6.5x30mm Stry-Howm 5523-5494-8518 78 Implanted:Qty: 1 on 10/19/2021 by Tom Pederson MD Right: Hip [employer] [id number] 07/19/2026 1304-5894 / / WTAE Hip Insrt X3 Trident 0d 36mm E Stry-Howm 676-12-69u-200 921 Implanted:Qty: 1 on 10/19/2021 by Tom Pederson MD Right: Hip [employer] [id number] 03/02/2025 623-10-36E / / [id number] Impl Set Bead 2.0mm Vit Dall Miles Stry-Howm 7480-6-079-114 128 Implanted:Qty: 1 on 10/19/2021 by Tom Pederson MD Right: Hip [employer] [id number] 08/16/2026 6704-0-520 / / [id number] Hip Stem Acco Ii Sz5 132deg Stry-Howm 1440-0952-5618 85 Implanted:Qty: 1 on 10/19/2021 by Tom Pederson MD Right: Hip [employer] [id number] 06/20/2026 6147-0099 / / [id number] Hip Head Delta Biolox 36mm -5 Stry-Howm 7175-1-473-549 190 Implanted:Qty: 1 on 10/19/2021 by Tom Pederson MD Right: Hip [employer] [id number] 08/24/2026 6570-0-036 / / [id number] Tritanium Cluster Hole Shell 54mm Stry-Howm 234-13-06z-772 453 Implanted:Qty: 1 on 10/19/2021 by Tom Pederson MD Right: Hip [employer] [id number] 07/04/2026 702-04-54E / / [id number] Lp Hex Screw 6.5x30mm Stry-Howm 6377-4942-5572 78 Implanted:Qty: 1 on 10/19/2021 by Tom Pederson MD Right: Hip [employer] [id number] 07/19/2026 4956-8236 / / WTAE Procedures Procedure Name Priority [...] LAB CHEMISTRY METHOD 05/05/2024 2:50 PM EST [facility] Triglycerides 128 0 - 150 mg/dL LAB CHEMISTRY METHOD 05/05/2024 2:50 PM EST [facility] HDL 103 >=40 mg/dL LAB CHEMISTRY METHOD 05/05/2024 2:50 PM EST [facility] LDL Calculated 115(H) 0 - 100 mg/dL LAB CHEMISTRY METHOD 05/05/2024 2:50 PM EST [facility] VLDL Cholesterol Star 25.6 mg/dL LAB CHEMISTRY METHOD 05/05/2024 2:50 PM EST [facility] Non HDL Chol. (LDL+VLDL) 141 <145 mg/dL LAB CHEMISTRY METHOD 05/05/2024 2:50 PM EST [facility] Chol/HDL Ratio 2.4 0.0 - 4.4 LAB CHEMISTRY METHOD 05/05/2024 2:50 PM EST [facility] Blood Venous blood specimen / Unknown Venipuncture / Unknown 05/05/2024 11:48 AM EST 05/05/2024 11:48 AM EST us Kacey CAMACHO LAB BLOOD ORDERABLES Final Result [facility] [address] [place] [address], * SCREENING MAMMOGRAPHY BI 2-VIEW BREAST INC [...] Risk Assessment (09/16/2023) Falls Risk Assessment ABSTRACTED us Historical Provider MD HEALTH MAINTENANCE Final Result * Depression Screening (09/16/2023) Depression Screening ABSTRACTED us Historical Provider MD HEALTH MAINTENANCE Final Result [...] (World Health Organization Fracture Risk Assessment) [facility] Department of Internal Medicine recommends using National [...] (World Health Organization Fracture Risk Assessment) [facility] Department of Internal Medicine recommendsusing National Osteoporosis [...] PROCEDURES Final R esult * Colonoscopy (05/29/2022) [facility] Colonoscopy no interpretation , abstracted Anatomical Region Laterality Modality Other Result [facility] Historical Provider HEALTH MAINTENANCE Final Result * Hepatitis C Screening (03/03/2014) [facility] Hepatitis C Screening ABSTRACTED Result [facility] Historical Provider HEALTH MAINTENANCE Final Result from Last 3 Months or Most Recently Relevant to Health Maintenance Insurance MEDICARE [employer] Advance Directives Documents on File Type Date Recorded Patient Software Engineer Web Services Expl anation Health Care Decision (hx) 06/24/2019 [...] (hx) 06/24/2019 AD BOND DIRECTIVE Care Teams Aerial Gunner Relationship Specialty Start Date End Date Karen Hart MD [address] [place] [phone] PCP - General Internal Medicine 11/04/21
--- OUTSIDE RECORDS SUMMARY | 2024-09-09 14:42 | XMS_ITS | Clinical Summary ---
Author Organization [facility] Address [address] [place] [address] Care Team Providers Care Memorial Marker Designer Name Role Phone Kacey Parra PA-C Primary [...] Comments Cancer Brother PANCREATIC Heart disease Brother [place] with stent Heart disease Father CABG Leukemia Father Heart disease Mother CHF Cancer Sister 1 BREAST Arthritis Sister 2 Heart disease Sister 2 UT X 2 Hyperlipidemia Sister 2 GI problems [...] this topic Medical Devices Implanted Type Area Intellectual Property Lawyer Device Identifier Shelf Expiration Date Model / Serial / Lot Cement Simplex P Radiopaque Full Dose Bone 10 Pack - 719159 - [id number] Implanted:Qty: 1 on 01/01/2019 by Tom Pederson MD at [facility] Left: Knee [employer] 01/03/2021 6191-1-010 / / [id number] Cement Simplex P Radiopaque Full Dose Bone 10 Pack - 306268 - [id number] Implanted:Qty: 1 on 01/01/2019 by Tom Pederson MD at [facility] Left: Knee [employer] 01/03/2021 6191-1-010 / / [id number] Component Triathlon 4 Cemented Posterior Stabilized Femoral - 908390 - [id number] Implanted:Qty: 1 on 01/01/2019 by Tom Pederson MD at [facility] Left: Knee [employer] 08/06/2023 5515-F-401 / / [id number] Peg Triathlon Modular Fix Distal Femur Knee - 087082 - [id number] Implanted:Qty: 1 on 01/01/2019 by Tom Pederson MD at [facility] Left: Knee [employer] 06/09/2023 5575-X-000 / / [id number] Baseplate Triathlon 3 Cemented Primary Tibial Knee - 450228 - [id number] Implanted:Qty: 1 on 01/01/2019 by Tom Pederson MD at [facility] Left: Knee [employer] 07/14/2023 5520-B-300 / / [id number] Component Triathlon 9mm 29mm Asymmetric X3 Ptlar Knee - 965926 - [id number] Implanted:Qty: 1 on 01/01/2019 by Tom Pederson MD at [facility] Left: Knee [employer] 10/19/2023 5551-G-299 / / [id number] Triathlon Ps Insert - Size 3 12mm X3 - [id number] - [id number] Implanted:Qty: 1 on 01/01/2019 by Tom Pederson MD at [facility] and [facility] Left: Knee [employer] 02/05/2023 5532-G-312 -E / / [id number] Lp Hex Screw 6.5x30mm [facility] 8799-6420-0722 78 - [id number] Implanted:Qty: 1 on 10/19/2021 by Tom Pederson MD at [facility] Right: Hip [employer] [id number] 07/19/2026 0947-1817 / / WTAE Hip Insrt X3 Trident 0d 36mm E Stry-Howm 429-95-91h-200 921 - [id number] Implanted:Qty: 1 on 10/19/2021 by Tom Pederson MD at [facility] and [facility] Right: Hip [employer] [id number] 03/02/2025 623-10-36E / / [id number] Impl Set Bead 2.0mm Vit Dall Miles Stry-Howm 6628-4-383-114 128 - [id number] Implanted:Qty: 1 on 10/19/2021 by Tom Pederson MD at [facility] Right: Hip [employer] [id number] 08/16/2026 6704-0-520 / / [id number] Hip Stem Acco Ii Sz5 132deg Stry-Howm 1045-2194-1799 85 - [id number] Implanted:Qty: 1 on 10/19/2021 by Tom Pederson MD at [facility] Right: Hip [employer] [id number] 06/20/2026 5254-7649 / / [id number] Hip Head Delta Biolox 36mm -5 Stry-Howm 0497-5-938-549 190 - [id number] Implanted:Qty: 1 on 10/19/2021 by Tom Pederson MD at [facility] Right: Hip [employer] [id number] 08/24/2026 6570-0-036 / / [id number] Tritanium Cluster Hole Shell 54mm Stry-Howm 750-92-65h-772 453 - [id number] Implanted:Qty: 1 on 10/19/2021 by Tom Pederson MD at [facility] and [facility] Right: Hip [employer] [id number] 07/04/2026 702-04-54E / / [id number] Lp Hex Screw 6.5x30mm Stry-Howm 9097-7552-0740 78 - [id number] Implanted:Qty: 1 on 10/19/2021 by Tom Pederson MD at [facility] Right: Hip [employer] [id number] 07/19/2026 0945-8318 / / WTAE Advance Directives For more information, please contact: [phone] Latest Code Status on File Code Status [...] way: discussion with patient . Care Teams Memorial Marker Designer Relationship Specialty Start Date End Date Kacey Parra PA-C [address] [place] [phone] PCP - General Medical Services 10/12/21
== END 2024-09-09 13:58 | disposition home or self-care (01) ==
LOC: HO.HOS 13:27
PROVIDERS: PCP Physician Assistant Medical; Visit Provider Orthopaedic Surgery
DX: M25.312 Other instability, left shoulder (principal)
CPT/HCPCS: 99213; G2211

== ENCOUNTER → 2024-09-09 13:30 | Outpatient (BNV) | payer MEDICARE, SELFPAY | PROVIDERS: Visit Provider Radiology Diagnostic Radiology | DX: M25.512 Pain in left shoulder (principal) | CPT/HCPCS: 73030 ==

== ENCOUNTER 2024-09-09 15:18 | Outpatient (REF) | payer MEDICARE, SELFPAY ==
--- NOTE | ~2024-09-09 | XR_ITS ---
EXAMINATION: XR SHOULDER 2 OR MORE VIEWS LEFT HISTORY: M25.512 - Pain in left shoulder COMPARISON: There are no prior studies available for comparison. FINDINGS: Two views of the left shoulder are submitted. Osseous mineralization is normal. There is no fracture or dislocation. The glenohumeral joint is maintained. There is mild osteoarthritis of the AC joint with osteophyte formation. The soft tissues are unremarkable. XR/XR shoulder LT min 2V IMPRESSION: Mild osteoarthritis of the AC joint. Electronically signed by: Junaid Shields MD 09/09/2024 02:38 PM EDT
--- OUTSIDE RECORDS SUMMARY | 2024-09-10 15:52 | XMS_ITS | Clinical Summary ---
Author Organization [facility] Address [address] [place] [address] Care Team Providers Care Jigsaw Operator Name Role Phone Kacey Parra PA-C Primary [...] Comments Cancer Brother PANCREATIC Heart disease Brother [place] with stent Heart disease Father CABG Leukemia Father Heart disease Mother CHF Cancer Sister 1 BREAST Arthritis Sister 2 Heart disease Sister 2 NV X 2 Hyperlipidemia Sister 2 GI problems [...] this topic Medical Devices Implanted Type Area Tank Builder Device Identifier Shelf Expiration Date Model / Serial / Lot Cement Simplex P Radiopaque Full Dose Bone 10 Pack - 815164 - [id number] Implanted:Qty: 1 on 01/01/2019 by Tom Pederson MD at [facility] Left: Knee [employer] 01/03/2021 6191-1-010 / / [id number] Cement Simplex P Radiopaque Full Dose Bone 10 Pack - 875508 - [id number] Implanted:Qty: 1 on 01/01/2019 by Tom Pederson MD at [facility] Left: Knee [employer] 01/03/2021 6191-1-010 / / [id number] Component Triathlon 4 Cemented Posterior Stabilized Femoral - 188327 - [id number] Implanted:Qty: 1 on 01/01/2019 by Tom Pederson MD at [facility] Left: Knee [employer] 08/06/2023 5515-F-401 / / [id number] Peg Triathlon Modular Fix Distal Femur Knee - 743582 - [id number] Implanted:Qty: 1 on 01/01/2019 by Tom Pederson MD at [facility] Left: Knee [employer] 06/09/2023 5575-X-000 / / [id number] Baseplate Triathlon 3 Cemented Primary Tibial Knee - 290275 - [id number] Implanted:Qty: 1 on 01/01/2019 by Tom Pederson MD at [facility] Left: Knee [employer] 07/14/2023 5520-B-300 / / [id number] Component Triathlon 9mm 29mm Asymmetric X3 Ptlar Knee - 410604 - [id number] Implanted:Qty: 1 on 01/01/2019 by Tom Pederson MD at [facility] Left: Knee [employer] [facility] 10/19/2023 5551-G-299 / / [id number] Triathlon Ps Insert - Size 3 12mm X3 - 984808 - [id number] Implanted:Qty: 1 on 01/01/2019 by Tom Pederson MD at [facility] and [facility] Left: Knee [employer] 02/05/2023 5532-G-312 -E / / [id number] Lp Hex Screw 6.5x30mm [facility] 7373-1470-2883 78 - [id number] Implanted:Qty: 1 on 10/19/2021 by Tom Pederson MD at [facility] Right: Hip [employer] [facility] [id number] 07/19/2026 9479-0387 / / WTAE Hip Insrt X3 Trident 0d 36mm E Stry-Howm 065-22-32y-200 921 - [id number] Implanted:Qty: 1 on 10/19/2021 by Tom Pederson MD at [facility] Right: Hip [employer] [facility] [id number] 03/02/2025 623-10-36E / / [id number] Impl Set Bead 2.0mm Vit Dall Miles Stry-Howm 6620-6-959-114 128 - [id number] Implanted:Qty: 1 on 10/19/2021 by Tom Pederson MD at [facility] Right: Hip [employer] [id number] 08/16/2026 6704-0-520 / / [id number] Hip Stem Acco Ii Sz5 132deg Stry-Howm 9468-4385-4235 85 - [id number] Implanted:Qty: 1 on 10/19/2021 by Tom Pederson MD at [facility] Right: Hip [employer] [id number] 06/20/2026 2711-1921 / / [id number] Hip Head Delta Biolox 36mm -5 Stry-Howm 6936-2-727-549 190 - [id number] Implanted:Qty: 1 on 10/19/2021 by Tom Pederson MD at [facility] Right: Hip [employer] [id number] 08/24/2026 6570-0-036 / / [id number] Tritanium Cluster Hole Shell 54mm Stry-Howm 795-99-90y-772 453 - [id number] Implanted:Qty: 1 on 10/19/2021 by Tom Pederson MD at [facility] and [facility] Right: Hip [employer] [id number] 07/04/2026 702-04-54E / / [id number] Lp Hex Screw 6.5x30mm Stry-Howm 9799-7606-2252 78 - [id number] Implanted:Qty: 1 on 10/19/2021 by Tom Pederson MD at [facility] Right: Hip [employer] [id number] 07/19/2026 1443-2297 / / WTAE Advance Directives For more information, please contact: [phone] Latest Code Status on File Code Status [...] way: discussion with patient . Care Teams Jigsaw Operator Relationship Specialty Start Date End Date Kacey Parar PA-C [address] [place] [phone] PCP - General Medical Services 10/12/21
--- OUTSIDE RECORDS SUMMARY | 2024-09-10 15:52 | XMS_ITS | Clinical Summary ---
Author Organization [facility] [address] [facility] lding Address [address] [place] [address] Phone Care Team Providers Care Manager Packaging Name Role Phone Karen Hart MD Primary [...] 6mo and older 02/05/2015,02/09/2013,01/30/2012,03/04,02/01/2008,02/05/2007 PPD Test 06/26/2005 [employer] SARS-CoV-2 COVID-19, mRNA, LNP-S, preservative free 03/10/2021,05/16/2020,04/25/2020 Pneumococcal polysaccharide 23 valent (Pneumovax 23) 2yo and older 06/15/1999 Td Tetanus diptheria (Tdvax) 7yo and older 11/09/2021,06/15/1999 Tdap Tetanus diptheria acell ular pertussis (Boostrix; Adacel) 7yo and older 05/16/2011 Surgical History Surgery Date Site/Laterality Comments BREAST BIOPSY PROCEDURE: [place] BIOPSY BREAST OPEN INCISIONAL; COMMENT: Benign OTHER SURGICAL HISTORY 12/2007 PROCEDURE: MAMMOGRAM TONSILLECTOMY PROCEDURE: HISTORICAL TONSILLECTOMY; COMMENT: age 19 SALPINGOOPHORECTOMY PROCEDURE: [place] LAPAROSCOPY W/RMVL ADNEXAL STRUCTURES; COMMENT: Left age 19 APPENDECTOMY PROCEDURE: [place] APPENDECTOMY; COMMENT: 8th grade COLONOSCOPY 11/2005 PROCEDURE: [place] COLONOSCOPY STOMA DX INCLUDING COLLJ SPEC SPX; COMMENT: normal, due 2015 KNEE ARTHROSCOPY 09/04/2012 PROCEDURE: [place] ARTHROSCOPY AID [place] SPINE&/FX KNEE W/O FIXJ; [...] Name Status Comments Aunt mat Brother Alive [place] Father [place] Mother lymphoblastic l eukemia and coronary disease [...] 11:15 AM EDT Office Visit Adult Medicine [facility] [address] [place] [address] Kacey Parra PA [address] [place] [address] 09/23/2024 1:20 PM EDT Appointment Radiology Department - [address] [address] Health Maintenance Due Date Last Done Comments [...] this topic Medical Devices Implanted Type Area Rope Maker Device Identifier Shelf Expiration Date Model / Serial / Lot Cement Simplex P Radiopaque Full Dose Bone 10 Pack - [id number] Implanted:Qty: 1 on 01/01/2019 by Tom Pederson MD Left: Knee [employer] 01/03/2021 6191-1-010 / / [id number] Cement Simplex P Radiopaque Full Dose Bone 10 Pack - [id number] Implanted:Qty: 1 on 01/01/2019 by Tom Pederson MD Left: Knee [employer] 01/03/2021 6191-1-010 / / [id number] Component Triathlon 4 Cemented Posterior Stabilized Femoral - [id number] Implanted:Qty: 1 on 01/01/2019 by Tom Pederson MD Left: Knee [employer] 08/06/2023 5515-F-401 / / [id number] Peg Triathlon Modular Fix Distal Femur Knee - [id number] Implanted:Qty: 1 on 01/01/2019 by Tom Pederson MD Left: Knee [employer] 06/09/2023 5575-X-000 / / [id number] Baseplate Triathlon 3 Cemented Primary Tibial Knee - [id number] Implanted:Qty: 1 on 01/01/2019 by Tom Pederson MD Left: Knee [employer] 07/14/2023 5520-B-300 / / [id number] Component Triathlon 9mm 29mm Asymmetric X3 Ptlar Knee - [id number] Implanted:Qty: 1 on 01/01/2019 by Tom Pederson MD Left: Knee [employer] 10/19/2023 5551-G-299 / / [id number] Triathlon Ps Insert - Size 3 12mm X3 - [id number] Implanted:Qty: 1 on 01/01/2019 by Tom Pederson MD Left: Knee [employer] 02/05/2023 5532-G-312 -E / / [id number] Lp Hex Screw 6.5x30mm Stry-Howm 8633-5557-7838 78 Implanted:Qty: 1 on 10/19/2021 by Tom Pederson MD Right: Hip [employer] [id number] 07/19/2026 9854-8020 / / WTAE Hip Insrt X3 Trident 0d 36mm E Stry-Howm 770-35-94b-200 921 Implanted:Qty: 1 on 10/19/2021 by Tom Pederson MD Right: Hip [employer] [id number] 03/02/2025 623-10-36E / / [id number] Impl Set Bead 2.0mm Vit Dall Miles Stry-Howm 7514-5-196-114 128 Implanted:Qty: 1 on 10/19/2021 by Tom Pederson MD Right: Hip [employer] [id number] 08/16/2026 6704-0-520 / / [id number] Hip Stem Acco Ii Sz5 132deg Stry-Howm 5010-1063-6033 85 Implanted:Qty: 1 on 10/19/2021 by Tom Pederson MD Right: Hip [employer] [id number] 06/20/2026 4893-6192 / / [id number] Hip Head Delta Biolox 36mm -5 Stry-Howm 8352-7-126-549 190 Implanted:Qty: 1 on 10/19/2021 by Tom Pederson MD Right: Hip [employer] [id number] 08/24/2026 6570-0-036 / / [id number] Tritanium Cluster Hole Shell 54mm Stry-Howm 689-20-96k-772 453 Implanted:Qty: 1 on 10/19/2021 by Tom Pederson MD Right: Hip [employer] [id number] 07/04/2026 702-04-54E / / [id number] Lp Hex Screw 6.5x30mm Stry-Howm 3796-9175-8571 78 Implanted:Qty: 1 on 10/19/2021 by Tom Pederson MD Right: Hip [employer] [id number] 07/19/2026 8758-4437 / / WTAE Procedures Procedure Name Priority [...] LAB CHEMISTRY METHOD 05/05/2024 2:50 PM EST [facility] Triglycerides 128 0 - 150 mg/dL LAB CHEMISTRY METHOD 05/05/2024 2:50 PM EST [facility] HDL 103 >=40 mg/dL LAB CHEMISTRY METHOD 05/05/2024 2:50 PM EST [facility] LDL Calculated 115(H) 0 - 100 mg/dL LAB CHEMISTRY METHOD 05/05/2024 2:50 PM EST [facility] VLDL Cholesterol Star 25.6 mg/dL LAB CHEMISTRY METHOD 05/05/2024 2:50 PM EST [facility] Non HDL Chol. (LDL+VLDL) 141 <145 mg/dL LAB CHEMISTRY METHOD 05/05/2024 2:50 PM EST [facility] Chol/HDL Ratio 2.4 0.0 - 4.4 LAB CHEMISTRY METHOD 05/05/2024 2:50 PM EST [facility] Blood Venous blood specimen / Unknown Venipuncture / Unknown 05/05/2024 11:48 AM EST 05/05/2024 11:48 AM EST us Kacey CAMACHO LAB BLOOD ORDERABLES Final Result [facility] [address] [place] [address], * SCREENING MAMMOGRAPHY BI 2-VIEW BREAST INC [...] PROCEDURES Final R esult * Colonoscopy (05/29/2022) [facility] Colonoscopy no interpretation , abstracted Anatomical Region Laterality Modality Other Result [facility] Historical Provider HEALTH MAINTENANCE Final Result * Hepatitis C Screening (03/03/2014) [facility] Hepatitis C Screening ABSTRACTED Result [facility] Historical Provider HEALTH MAINTENANCE Final Result from Last 3 Months or Most Recently Relevant to Health Maintenance Insurance MEDICARE [facility] Advance Directives Documents on File Type Date Recorded Patient Medical Insurance Coder Expl anation Health Care Decision (hx) 06/24/2019 [...] (hx) 06/24/2019 AD BOND DIRECTIVE Care Teams Manager Packaging Relationship Specialty Start Date End Date Karen Hart MD [address] [place] [phone] PCP - General Internal Medicine 11/04/21
== END 2024-09-09 15:19 | disposition home or self-care (01) ==
LOC: HO.HOSX 15:18
PROVIDERS: Visit Provider Orthopaedic Surgery
DX: M25.512 Pain in left shoulder (principal); M25.312 Other instability, left shoulder
CPT/HCPCS: 73030; 99212

== ENCOUNTER → 2024-09-15 07:48 | Outpatient (BNV) | payer MEDICARE, SELFPAY | PROVIDERS: PCP Physician Assistant Medical; Visit Provider Radiology Diagnostic Radiology | DX: M75.122 Complete rotator cuff tear or rupture of left shoulder, not specified as traumatic (principal); M75.32 Calcific tendinitis of left shoulder; M19.012 Primary osteoarthritis, left shoulder | CPT/HCPCS: 73221 ==

== ENCOUNTER 2024-09-15 07:56 | Outpatient (REF) | payer MEDICARE, SELFPAY ==
--- NOTE | ~2024-09-15 | MR_ITS ---
EXAMINATION: MR SHOULDER CLINICAL INFORMATION: Constant left shoulder pain x1.5 months, osteoarthritis. COMPARISON: No prior MRI. Left shoulder radiographs 09/09/2024. TECHNIQUE: Multiplanar multisequence MR imaging of the left shoulder was done without IV contrast. Examination performed on a 1.5 Jonelle Siemens unit utilizing standard sequences. FINDINGS: Rotator Cuff and Biceps Tendon: Supraspinatus: There is an approximate 50% undersurface tear of the critical zone of the tendon measuring 9 mm in transverse diameter, and spanning 16 mm AP diameter. (Series 8, image 14; series 9; image 22). This encompasses approximately 50% of the tendinous width. There is no full-thickness tear or tendinous retraction. In addition, there is a small rim rent type tear of the medial footplate attachment of the posterior aspect of the tendon, measuring approximately 3 mm (series 8, image 16). There is no atrophy of the muscle belly. Infraspinatus: There is no discrete tear identified. There is mild tendinopathy, of the one half of the articular surface of the tendon. The muscle belly is normal. Subscapularis: There is no discrete tear identified. There is extensive tendinopathy and tendinitis with thickening of the insertional aspect of the mid and inferior fibers of the tendon, with high signal extending into the mid articular aspect of the tendon. No full-thickness tear or tendinous retraction. The muscle belly appears intact. Teres Minor: Intact and normal in signal. Normal muscle belly. Biceps Long Head: Normally located within the groove. Increased fluid signal surrounding the tendon consistent with tenosynovitis. The tendon has a thickened and somewhat macerated appearance, consistent with high-grade degenerative type tearing. The tendon within the rotator interval also demonstrates high intrasubstance signal and flattening consistent with interstitial tearing. The anchor appears intact. AC Joint and Acromiohumeral Arch: There is moderate to severe degenerative arthropathy of the AC joint with periarticular edema, joint capsular distention, and both moderate to severe superior surface and undersurface spurring. There is mild to moderate impingement upon the supraspinatus outlet (series 10, image 12; series 9, image 12). Glenohumeral Joint and Labrum: Mild to moderate degenerative arthritis in the glenohumeral joint is present with a small joint effusion. There is cartilage thinning in and eburnation of both the glenoid and humeral head, without full-thickness defect identified, nor subchondral bone plate edema. There is extensive abnormal signal throughout the superior labrum consistent with superior labral tearing. The anterior labrum appears thickened and hyperintense also consistent with tearing. The posterior labrum appears intact. There may be subtle tearing of the inferior labrum. Osseous Structures: There is no additional region of bone marrow edema or abnormal infiltrating bone marrow signal. Spino-glenoid Notch: Normal. Quadrilateral Space: Normal. Other: There is moderate fluid signal seen in the subacromial/subdeltoid bursa consistent with bursitis. MR/MR shoulder LT wo con IMPRESSION: 1. Approximately 50% undersurface tearing of the supraspinatus tendon within the critical zone. There is also a small rim rent type tear of the medial footplate attachment of the mid to posterior tendon. 2. No definite tear of the infraspinatus tendon. There is mild tendinopathy present. 3. Moderate tendinopathy of the subscapularis tendon without discrete tear evident. 4. Long head of the biceps tendon has a somewhat macerated appearance, consistent with high-grade degenerative tearing. 5. Mild to moderate degenerative arthritis in the glenohumeral joint. Suspect superior, anterior and likely inferior labral tearing. 6. Moderate to severe degenerative arthritis of the AC joint with both superior and undersurface spurring. There is mild to moderate impingement upon the supraspinatus outlet. Electronically signed by: Mark Hodgson MD 09/15/2024 09:13 AM EDT
--- OUTSIDE RECORDS SUMMARY | 2024-09-15 08:00 | XMS_ITS | Clinical Summary ---
Author Organization [facility] Address [address] [place] [address] Care Team Providers Care Fur Joiner Name Role Phone Kacey Parra PA-C Primary [...] Comments Cancer Brother PANCREATIC Heart disease Brother MS with stent Heart disease Father CABG Leukemia Father Heart disease Mother CHF Cancer Sister 1 BREAST Arthritis Sister 2 Heart disease Sister 2 MS X 2 Hyperlipidemia Sister 2 GI problems [...] this topic Medical Devices Implanted Type Area Plastics And Composites Inspector Device Identifier Shelf Expiration Date Model / Serial / Lot Cement Simplex P Radiopaque Full Dose Bone 10 Pack - 008420 - [id number] Implanted:Qty: 1 on 01/01/2019 by Tom Pederson MD [place] [facility] Left: Knee [employer] 01/03/2021 6191-1-010 / / [id number] Cement Simplex P Radiopaque Full Dose Bone 10 Pack - 584300 - [id number] Implanted:Qty: 1 on 01/01/2019 by Tom Pederson MD [place] [facility] Left: Knee [employer] 01/03/2021 6191-1-010 / / [id number] Component Triathlon 4 Cemented Posterior Stabilized Femoral - 308539 - [id number] Implanted:Qty: 1 on 01/01/2019 by Tom Pederson MD at [facility] Left: Knee [employer] 08/06/2023 5515-F-401 / / [id number] Peg Triathlon Modular Fix Distal Femur Knee - 327365 - [id number] Implanted:Qty: 1 on 01/01/2019 by Tom Pederson MD at [facility] Left: Knee [employer] 06/09/2023 5575-X-000 / / [id number] Baseplate Triathlon 3 Cemented Primary Tibial Knee - 522304 - [id number] Implanted:Qty: 1 on 01/01/2019 by Tom Pederson MD at [facility] Left: Knee [employer] 07/14/2023 5520-B-300 / / [id number] Component Triathlon 9mm 29mm Asymmetric X3 Ptlar Knee - 239924 - [id number] Implanted:Qty: 1 on 01/01/2019 by Tom Pederson MD at [facility] Left: Knee [employer] 10/19/2023 5551-G-299 / / [id number] Triathlon Ps Insert - Size 3 12mm X3 - 887282 - [id number] Implanted:Qty: 1 on 01/01/2019 by Tom Pederson MD at [facility] Left: Knee [employer] 02/05/2023 5532-G-312 -E / / [id number] Lp Hex Screw 6.5x30mm Stry[facility] 2105-4235-3383 78 - [id number] Implanted:Qty: 1 on 10/19/2021 by Tom Pederson MD at [facility] Right: Hip [employer] [id number] 07/19/2026 7053-0845 / / WTAE Hip Insrt X3 Trident 0d 36mm E Stry-Howm 581-94-57r-200 921 - [id number] Implanted:Qty: 1 on 10/19/2021 by Tom Pederson MD at [facility] Right: Hip [employer] [id number] 03/02/2025 623-10-36E / / [id number] Impl Set Bead 2.0mm Vit Dall Miles Stry-Howm 7023-8-936-114 128 - [id number] Implanted:Qty: 1 on 10/19/2021 by Tom Pederson MD at [facility] Right: Hip [employer] [id number] 08/16/2026 6704-0-520 / / [id number] Hip Stem Acco Ii Sz5 132deg Stry-Howm 8192-4655-2844 85 - [id number] Implanted:Qty: 1 on 10/19/2021 by Tom Pederson MD at [facility] Right: Hip [employer] [id number] 06/20/2026 6303-1596 / / [id number] Hip Head Delta Biolox 36mm -5 Stry-Howm 5874-1-858-549 190 - [id number] Implanted:Qty: 1 on 10/19/2021 by Tom Pederson MD at [facility] Right: Hip [employer] [id number] 08/24/2026 6570-0-036 / / [id number] Tritanium Cluster Hole Shell 54mm Stry-Howm 840-30-34m-772 453 - [id number] Implanted:Qty: 1 on 10/19/2021 by Tom Pederson MD at [facility] Right: Hip [employer] [facility] [id number] 07/04/2026 702-04-54E / / [id number] Lp Hex Screw 6.5x30mm Stry-Howm 1325-8399-1822 78 - [id number] Implanted:Qty: 1 on 10/19/2021 by Tom Pederson MD at [facility] Right: Hip [employer] [id number] 07/19/2026 3188-4016 / / WTAE Advance Directives For more information, please contact: [phone] Latest Code Status on File Code Status [...] way: discussion with patient . Care Teams Fur Joiner Relationship Specialty Start Date End Date Kacey Parra PA-C [address] [place] [phone] PCP - General Medical Services 10/12/21
--- OUTSIDE RECORDS SUMMARY | 2024-09-15 08:00 | XMS_ITS | Clinical Summary ---
Author Organization [facility] [address] [facility] lding Address [address] [place] [address] Phone Care Team Providers Care Second Rigger Name Role Phone Karen Hart MD Primary [...] 6mo and older 02/05/2015,02/09/2013,01/30/2012,03/04,02/01/2008,02/05/2007 PPD Test 06/26/2005 [employer] SARS-CoV-2 COVID-19, mRNA, LNP-S, preservative free 03/10/2021,05/16/2020,04/25/2020 Pneumococcal polysaccharide 23 valent (Pneumovax 23) 2yo and older 06/15/1999 Td Tetanus diptheria (Tdvax) 7yo and older 11/09/2021,06/15/1999 Tdap Tetanus diptheria acell ular pertussis (Boostrix; Adacel) 7yo and older 05/16/2011 Surgical History Surgery Date Site/Laterality Comments BREAST BIOPSY PROCEDURE: CT BIOPSY BREAST OPEN INCISIONAL; COMMENT: Benign OTHER SURGICAL HISTORY 12/2007 PROCEDURE: MAMMOGRAM TONSILLECTOMY PROCEDURE: HISTORICAL TONSILLECTOMY; COMMENT: age 19 SALPINGOOPHORECTOMY PROCEDURE: CT LAPAROSCOPY W/RMVL ADNEXAL STRUCTURES; COMMENT: Left age 19 APPENDECTOMY PROCEDURE: CT APPENDECTOMY; COMMENT: 8th grade COLONOSCOPY 11/2005 PROCEDURE: CT COLONOSCOPY STOMA DX INCLUDING COLLJ SPEC SPX; COMMENT: normal, due 2015 KNEE ARTHROSCOPY 09/04/2012 PROCEDURE: CT ARTHROSCOPY AID [place] SPINE&/FX KNEE W/O FIXJ; [...] Name Status Comments Aunt mat Brother Alive [place] Father [place] Mother lymphoblastic l eukemia and coronary disease [...] 11:15 AM EDT Office Visit Adult Medicine [facility] [address] [place] [address] Kacey Parra PA [address] [place] [address] 09/23/2024 1:20 PM EDT Appointment Radiology Department - [address] [address] Health Maintenance Due Date Last Done Comments [...] this topic Medical Devices Implanted Type Area Erp Pm Device Identifier Shelf Expiration Date Model / Serial / Lot Cement Simplex P Radiopaque Full Dose Bone 10 Pack - [id number] Implanted:Qty: 1 on 01/01/2019 by Tom Pederson MD Left: Knee [employer] 01/03/2021 6191-1-010 / / [id number] Cement Simplex P Radiopaque Full Dose Bone 10 Pack - [id number] Implanted:Qty: 1 on 01/01/2019 by Tom Pederson MD Left: Knee [employer] 01/03/2021 6191-1-010 / / [id number] Component Triathlon 4 Cemented Posterior Stabilized Femoral - [id number] Implanted:Qty: 1 on 01/01/2019 by Tom Pederson MD Left: Knee [employer] 08/06/2023 5515-F-401 / / [id number] Peg Triathlon Modular Fix Distal Femur Knee - [id number] Implanted:Qty: 1 on 01/01/2019 by Tom Pederson MD Left: Knee [employer] 06/09/2023 5575-X-000 / / [id number] Baseplate Triathlon 3 Cemented Primary Tibial Knee - [id number] Implanted:Qty: 1 on 01/01/2019 by Tom Pederson MD Left: Knee [employer] 07/14/2023 5520-B-300 / / [id number] Component Triathlon 9mm 29mm Asymmetric X3 Ptlar Knee - [id number] Implanted:Qty: 1 on 01/01/2019 by Tom Pederson MD Left: Knee [employer] 10/19/2023 5551-G-299 / / [id number] Triathlon Ps Insert - Size 3 12mm X3 - [id number] Implanted:Qty: 1 on 01/01/2019 by Tom Pederson MD Left: Knee [employer] 02/05/2023 5532-G-312 -E / / [id number] Lp Hex Screw 6.5x30mm Stry-Howm 0386-9541-7466 78 Implanted:Qty: 1 on 10/19/2021 by Tom Pederson MD Right: Hip [employer] [id number] 07/19/2026 9452-1946 / / WTAE Hip Insrt X3 Trident 0d 36mm E Stry-Howm 009-05-80a-200 921 Implanted:Qty: 1 on 10/19/2021 by Tom Pederson MD Right: Hip [employer] [id number] 03/02/2025 623-10-36E / / [id number] Impl Set Bead 2.0mm Vit Dall Miles Stry-Howm 0525-6-555-114 128 Implanted:Qty: 1 on 10/19/2021 by Tom Pederson MD Right: Hip [employer] [id number] 08/16/2026 6704-0-520 / / [id number] Hip Stem Acco Ii Sz5 132deg Stry-Howm 6152-5818-4150 85 Implanted:Qty: 1 on 10/19/2021 by Tom Pederson MD Right: Hip [employer] [id number] 06/20/2026 2683-8215 / / [id number] Hip Head Delta Biolox 36mm -5 Stry-Howm 7584-5-602-549 190 Implanted:Qty: 1 on 10/19/2021 by Tom Pederson MD Right: Hip [employer] [id number] 08/24/2026 6570-0-036 / / [id number] Tritanium Cluster Hole Shell 54mm Stry-Howm 822-78-55x-772 453 Implanted:Qty: 1 on 10/19/2021 by Tom Pederson MD Right: Hip [employer] [id number] 07/04/2026 702-04-54E / / [id number] Lp Hex Screw 6.5x30mm Stry-Howm 2071-7621-2073 78 Implanted:Qty: 1 on 10/19/2021 by Tom Pederson MD Right: Hip [employer] [id number] 07/19/2026 5809-2087 / / WTAE Procedures Procedure Name Priority [...] LAB CHEMISTRY METHOD 05/05/2024 2:50 PM EST [facility] Triglycerides 128 0 - 150 mg/dL LAB CHEMISTRY METHOD 05/05/2024 2:50 PM EST [facility] HDL 103 >=40 mg/dL LAB CHEMISTRY METHOD 05/05/2024 2:50 PM EST [facility] LDL Calculated 115(H) 0 - 100 mg/dL LAB CHEMISTRY METHOD 05/05/2024 2:50 PM EST [facility] VLDL Cholesterol Star 25.6 mg/dL LAB CHEMISTRY METHOD 05/05/2024 2:50 PM EST [facility] Non HDL Chol. (LDL+VLDL) 141 <145 mg/dL LAB CHEMISTRY METHOD 05/05/2024 2:50 PM EST [facility] Chol/HDL Ratio 2.4 0.0 - 4.4 LAB CHEMISTRY METHOD 05/05/2024 2:50 PM EST [facility] Blood Venous blood specimen / Unknown Venipuncture / Unknown 05/05/2024 11:48 AM EST 05/05/2024 11:48 AM EST us Kacey CAMACHO LAB BLOOD ORDERABLES Final Result [facility] [address] [place] [address], * SCREENING MAMMOGRAPHY BI 2-VIEW BREAST INC [...] (World Health Organization Fracture Risk Assessment) [facility] Department of Internal Medicine recommends using [...] (World Health Organization Fracture Risk Assessment) [facility] Department of Internal Medicine recommendsusing National [...] PROCEDURES Final R esult * Colonoscopy (05/29/2022) [facility] Colonoscopy no interpretation , abstracted Anatomical Region Laterality Modality Other Result [facility] Historical Provider HEALTH MAINTENANCE Final Result * Hepatitis C Screening (03/03/2014) [facility] Hepatitis C Screening ABSTRACTED Result [facility] Historical Provider HEALTH MAINTENANCE Final Result from Last 3 Months or Most Recently Relevant to Health Maintenance Insurance MEDICARE [facility] Advance Directives Documents on File Type Date Recorded Patient Clinical Biostatistics Director Expl anation Health Care Decision (hx) 06/24/2019 [...] (hx) 06/24/2019 AD BOND DIRECTIVE Care Teams Second Rigger Relationship Specialty Start Date End Date Karen Hart MD [address] [place] [id number] PCP - General Internal Medicine 11/04/21
== END 2024-09-15 07:57 | disposition home or self-care (01) ==
LOC: HO.MRI 07:56
PROVIDERS: PCP Physician Assistant Medical; Visit Provider Orthopaedic Surgery
DX: M25.312 Other instability, left shoulder (principal)
CPT/HCPCS: 73221

== ENCOUNTER 2024-09-22 12:51 | Outpatient (AMB) | payer MEDICARE, SELFPAY ==
[2024-09-22 12:52] VITALS: BMI 27.5
--- NOTE | 2024-09-22 12:52 | A.OFFVIS_ITS ---
Vital Signs 09/22/24 12:52 Height 5 ft 4 in Weight 160 lb BMI 27.5 Intake Visit Reasons: OV MRI Review LT Shoulder Intake Note: Esha Gonzalez is a 69 year old right hand dominant female who presents with complaints of progressively worsening left shoulder pain. The patient did undergo left shoulder arthroscopic surgery approximately 7 years ago. years ago. She got fairly good relief from that surgery initially. The patient did re-injure shoulder approximately 1 year ago while lifting a heavy object. Since that time her symptoms have gotten worse in spite of continued non operative treatments. She has failed the last 6 weeks of conservative treatment which has included a home exercise program, physical therapy exercises, Celebrex, Tylenol, methocarbamol and gabapentin. The patient reports mild weakness when lifting her left hand above shoulder height. At this point her left shoulder pain is interfering with her activities of daily living and her ability to sleep well through the night. Allergies scopolamine Allergy (Intermediate, Verified 09/09/24 13:32) dizzy, nausea Medication List - Last Reconciled 09/22/24 by Tom Pederson MD atorvastatin 20 mg PO DAILY celecoxib 200 mg PO DAILY docusate sodium 100 mg PO BID ferrous sulfate (iron) 325 mg PO DAILY gabapentin 300 mg PO TID methocarbamol 750 mg PO TID omeprazole 20 mg PO DAILY@0630 ondansetron 4 mg PO Q6H PRN sennosides (Senna Lax) 8.6 mg PO BID PRN sertraline 25 mg PO DAILY sertraline 100 mg PO DAILY PFSH Medical History Osteopenia Asthma Elevated cholesterol GERD (gastroesophageal reflux disease) Depression DJD (degenerative joint disease) Anxiety Back pain Surgical History History of carpal tunnel surgery of right wrist Hx of unilateral oophorectomy H/O colonoscopy Hx of breast biopsy Hx of appendectomy Hx of tonsillectomy History of esophagogastroduodenoscopy (EGD) History of left knee replacement History of shoulder surgery History of right hip replacement Social History Household Members: Spouse Housing: House Are you a primary career guidance counselor to a significant other at home: No Do you presently have visiting nurse or other home services: No Patient Tobacco Use Status: Never used Tobacco service: No Current occupational status: retired Physical Exam Vital Signs: BMI result Body Mass Index 27.5 Const Other: Well-nourished well-developed very friendly female awake alert and oriented x3 in no acute distress Extrem Other: Bilateral upper extremity examination shows good capillary refill, no skin lesions noted, normal sensation light touch Left shoulder examination shows slightly decreased range motion when compared to her right shoulder, 4+ out of 5 strength with supraspinatus testing, positive impingement signs, tenderness over her acromioclavicular joint, no instability Results Reviewed Results Reviewed: MRI of the patient's right shoulder shows acromioclavicular joint degenerative changes, a type 2 acromion, signal change within the supraspinatus tendon due to rotator cuff tendinosis versus a small rotator cuff tear Assessment & Plan Assessment & Plan (1) Impingement syndrome of left shoulder: Code(s): M75.42 - Impingement syndrome of left shoulder Category: Medical Plan Ms. Srivastava presents with left shoulder pain due to impingement syndrome, acromioclavicular joint arthritis and rotator cuff tendinosis versus a small tear. I had a lengthy discussion with the patient regarding the treatment options. At this point the patient appears to be failing continued non operative treatments. The risks and benefits of left shoulder surgery were discussed at length with the patient. The patient is considering undergoing surgery later this year. She will contact my office to pick a surgery date when she chooses to do so. Surgery will most likely involve left shoulder diagnostic arthroscopy with distal clavicle excision, acromioplasty and possible rotator cuff repair showed a full-thickness tear be found at the time of her surgery. The patient will continue with her dthgs-zg-[id number] exercises in the meantime. Feel free to call me at any time should questions regarding her orthopedic management arise. I spent 22 minutes in reviewing the patient's records and imaging studies, seeing the patient and documenting in the medical record. Coding Level of Care Code Est Pt Level 3 (67980) Complex EM visit Add On G2211 Diagnoses Impingement syndrome of left shoulder M75.42
--- OUTSIDE RECORDS SUMMARY | 2024-09-22 13:55 | XMS_ITS | Clinical Summary ---
Author Organization [facility] Address [address] [place] [address] Care Team Providers Care Lead Informatica Developer Name Role Phone Kacey Parra PA-C Primary [...] Comments Cancer Brother PANCREATIC Heart disease Brother CA with stent Heart disease Father CABG Leukemia Father Heart disease Mother CHF Cancer Sister 1 BREAST Arthritis Sister 2 Heart disease Sister 2 CA X 2 Hyperlipidemia Sister 2 GI problems [...] this topic Medical Devices Implanted Type Area Women'S Apparel Salesperson Device Identifier Shelf Expiration Date Model / Serial / Lot Cement Simplex P Radiopaque Full Dose Bone 10 Pack - [id number] - [id number] Implanted:Qty: 1 on 01/01/2019 by Tom Pederson MD at [facility] Left: Knee [employer] 01/03/2021 6191-1-010 / / [id number] Cement Simplex P Radiopaque Full Dose Bone 10 Pack - 599225 - [id number] Implanted:Qty: 1 on 01/01/2019 by Tom Pederson MD at [facility] Left: Knee [employer] 01/03/2021 6191-1-010 / / [id number] Component Triathlon 4 Cemented Posterior Stabilized Femoral - 517000 - [id number] Implanted:Qty: 1 on 01/01/2019 by Tom Pederson MD at [facility] Left: Knee [employer] 08/06/2023 5515-F-401 / / [id number] Peg Triathlon Modular Fix Distal Femur Knee - 191703 - [id number] Implanted:Qty: 1 on 01/01/2019 by Tom Pederson MD at [facility] Left: Knee [employer] 06/09/2023 5575-X-000 / / [id number] Baseplate Triathlon 3 Cemented Primary Tibial Knee - 334806 - [id number] Implanted:Qty: 1 on 01/01/2019 by Tom Pederson MD at [facility] Left: Knee [employer] 07/14/2023 5520-B-300 / / [id number] Component Triathlon 9mm 29mm Asymmetric X3 Ptlar Knee - 860952 - [id number] Implanted:Qty: 1 on 01/01/2019 by Tom Pederson MD at [facility] Left: Knee [employer] 10/19/2023 5551-G-299 / / [id number] Triathlon Ps Insert - Size 3 12mm X3 - [id number] - [id number] Implanted:Qty: 1 on 01/01/2019 by Tom Pederson MD at [facility] Left: Knee [employer] 02/05/2023 5532-G-312 -E / / [id number] Lp Hex Screw 6.5x30mm Stry[facility] 1190-5590-7694 78 - [id number] Implanted:Qty: 1 on 10/19/2021 by Tom Pederson MD at [facility] Right: Hip [employer] [id number] 07/19/2026 7217-5534 / / WTAE Hip Insrt X3 Trident 0d 36mm E Stry-Howm 294-56-43z-200 921 - [id number] Implanted:Qty: 1 on 10/19/2021 by Tom Pederson MD at [facility] Right: Hip [employer] [id number] 03/02/2025 623-10-36E / / [id number] Impl Set Bead 2.0mm Vit Dall Miles Stry-Howm 3567-7-759-114 128 - [id number] Implanted:Qty: 1 on 10/19/2021 by Tom Pederson MD at [facility] Right: Hip [employer] [id number] 08/16/2026 6704-0-520 / / [id number] Hip Stem Acco Ii Sz5 132deg Stry-Howm 6688-5591-1324 85 - [id number] Implanted:Qty: 1 on 10/19/2021 by Tom Pederson MD at [facility] Right: Hip [employer] [id number] 06/20/2026 8521-9670 / / [id number] Hip Head Delta Biolox 36mm -5 Stry-Howm 6690-8-571-549 190 - [id number] Implanted:Qty: 1 on 10/19/2021 by Tom Pederson MD at [facility] Right: Hip [employer] [id number] 08/24/2026 6570-0-036 / / [id number] Tritanium Cluster Hole Shell 54mm Stry-Howm 884-40-31o-772 453 - [id number] Implanted:Qty: 1 on 10/19/2021 by Tom Pederson MD at [facility] Right: Hip [employer] [id number] 07/04/2026 702-04-54E / / [id number] Lp Hex Screw 6.5x30mm Stry-Howm 2813-1091-7346 78 - [id number] Implanted:Qty: 1 on 10/19/2021 by Tom Pederson MD at [facility] Right: Hip [employer] [id number] 07/19/2026 9206-0695 / / WTAE Advance Directives For more information, please contact: [phone] Latest Code Status on File Code Status [...] way: discussion with patient . Care Teams Lead Informatica Developer Relationship Specialty Start Date End Date Kacey Parra PA-C [address] [place] [phone] PCP - General Medical Services 10/12/21
--- OUTSIDE RECORDS SUMMARY | 2024-09-22 13:55 | XMS_ITS | Clinical Summary ---
Author Organization [facility] [address] [facility] Address [address] [facility] [place] [place] [address] Phone Care Team Providers Care Pot Holder Binder Name Role Phone Karen Hart MD Primary Care Provider Allergies Active Allergy Reactions Criticality Noted Date Comments Other Nausea And Vomiting 08/10/2009 Headaches, nausea, vomiting Scopolamine Nausea Only,Other Medium 01/01/2019 Double vision Medications valACYclovir (VALTREX) 500 mg tablet TAKE 1 TABLET BY MOUTH 3 TIMES DAILY NEEDED FOR OTHER (COLD SORES). 07/19/19 24 Active fluticasone propionate (FLONASE) 50 mcg/actuation nasal spray SPRAY 1 SPRAY BY NASAL ROUTE EVERY DAY 08/04/19 23 Active magnesium aspart,citrate,ox shantal (Triple Magnesium Complex) 400 mg magnesium capsule [...] DAY 90 capsule 1 06/17/19 25 Active celecoxib (CeleBREX) 200 mg capsule TAKE 1 CAPSULE BY MOUTH EVERY DAY 90 capsule 07/23/19 25 Active atorvastatin (LIPITOR) 20 mg tablet Take 1 tablet (20 mg total) by mouth 1 (one) time each day. 90 tablet 1 09/16/19 25 Active methocarbamoL (ROBAXIN) 750 mg tablet Take 1 tablet (750 mg total) by mouth 3 (three) times a day. 90 tablet 1 09/16/19 25 Active sertraline (ZOLOFT) 100 mg tablet Take 1 tablet (100 mg total) by mouth 1 (one) time each day. Take with 25mg for total of 125mg 90 tablet 1 09/16/19 25 Active sertraline (ZOLOFT) 25 mg tablet Take 1 tablet (25 mg total) by mouth 1 (one) time each day. Take with 100 for total of 125mg 90 tablet 1 09/16/19 25 025 Active HYDROmorphone (DILAUDID) 4 mg tablet 10/28/19 24 025 Discontinued ondansetron ODT (ZOFRAN-ODT) 4 mg disintegrating tablet 10/17/19 025 Discontinued atorvastatin (LIPITOR) 20 mg tablet TAKE 1 TABLET BY MOUTH EVERY DAY 90 tablet 1 06/17/19 025 Discontinued(Re order) sertraline (ZOLOFT) 25 mg tablet TAKE 1 TAB DAILY WITH 100MG FOR TOTAL OF 125MG. 90 tablet 06/24/19 25 025 Discontinued(Re order) sertraline (ZOLOFT) 100 mg tablet TAKE 1 TABLET BY MOUTH EVERY DAY 90 tablet 07/22/19 025 Discontinued(Re order) methocarbamoL (ROBAXIN) 750 mg tablet TAKE 1 TABLET BY MOUTH 3 TIMES A DAY. 90 tablet 07/22/19 025 Discontinued(Re order) Active Problems Problem Noted Date Diagnosed Date Status post total hip replacement, right 022 Assessment & Plan (09/15/2024 11:18 AM EDT): Lumbar spinal stenosis 04/10/2021 Overview (02/07/2024): Last [...] injections or dry needling at pain management. Assessment & Plan (09/15/2024 11:18 AM EDT): Status post total left knee replacement 02/17/20 19 Medial meniscus tear 05/16/2017 Anxiety 08/30/2010 HSV-1 infection 08/11/2009 DJD (degenerative joint disease) of knee 008 Depression 07/10/2006 Assessment & Plan (09/15/2024 11:18 AM EDT): Esophageal reflux 11/26/2005 Overview (02/07/2024): Upper GI endoscopy 11.26.05 was normal on therapy with PPI medications. Assessment & Plan (09/15/2024 11:18 AM EDT): Pure hypercholesterolemia 06/26/2005 Assessment & Plan (09/15/2024 11:18 AM EDT): Asthma 06/26/2005 Allergic rhinitis 06/26/2005 Encounters Date Type Department Care Team Description 09/15/2024 11:15 AM EDT Office Visit Adult Medicine [facility] [address] [place] [address] Kacey Parra PA Medicare annual wellness visit, subsequent (Primary Dx); Status post total hip replacement, right; Gastroesophageal reflux disease, unspecified whether esophagitis present; Mild episode of recurrent major depressive disorder (CMS/HCC V24); Spinal stenosis of lumbar region, unspecified whether neurogenic claudication present; Pure hypercholesterolemia from Last 3 Months Immunizations Name Administration Dates Next Due Influenza Quadravalent, 0.5m l (Fluzone High-dose) 65yo and older 02/16/2023 Influenza trivalent, 0.5mL ( Fluzone High-dose) 65yo and older 02/21/2022 Influenza trivalent, with pr eservative (Fluzone; Afluria) 6mo and older 02/05/2015,02/09/2013,01/30/2012,03/04,02/01/2008,02/05/2007 PPD Test 06/26/2005 [place] SARS-CoV-2 COVID-19, mRNA, LNP-S, preservative free 03/10/2021,05/16/2020,04/25/2020 Pneumococcal conjugate 20 va lent (Prevnar 20, PCV 20) 2mo and older 09/15/2024 Pneumococcal polysaccharide 23 valent (Pneumovax 23) 2yo and older 06/15/1999 Td Tetanus diptheria (Tdvax) 7yo and older 11/09/2021,06/15/1999 Tdap Tetanus diptheria acell ular pertussis (Boostrix; Adacel) 7yo and older 05/16/2011 Surgical History Surgery Date Site/Laterality Comments BREAST BIOPSY PROCEDURE: AK BIOPSY BREAST OPEN INCISIONAL; COMMENT: Benign OTHER SURGICAL HISTORY 12/2007 PROCEDURE: MAMMOGRAM TONSILLECTOMY PROCEDURE: HISTORICAL TONSILLECTOMY; COMMENT: age 19 SALPINGOOPHORECTOMY PROCEDURE: AK LAPAROSCOPY W/RMVL ADNEXAL STRUCTURES; COMMENT: Left age 19 APPENDECTOMY PROCEDURE: AK APPENDECTOMY; COMMENT: 8th grade COLONOSCOPY 11/2005 PROCEDURE: AK COLONOSCOPY STOMA DX INCLUDING COLLJ SPEC SPX; COMMENT: normal, due 2015 KNEE ARTHROSCOPY 09/04/2012 PROCEDURE: AK ARTHROSCOPY AID TX SPINE&/FX KNEE W/O FIXJ; [...] Name Status Comments Aunt mat Brother Alive MD Father MD Mother lymphoblastic l eukemia and coronary disease Sister 1 [phone] Alive hypercholestero lemia Sister 2 Sister 3 Sister 4 Alive Kidney transplant/hypercholesterolemia/hypercholesterolemia Son Alive asthma Social History Tobacco Use Types Packs/Day Years Used Date Smoking Tobacco: Former Cigarettes Q uit: 11/13/1970 Smokeless Tobacco: Never Tobacco Cessation:Counseling Given: No Alcohol Use Standard Drinks/Week Comments No 0 (1 standard drink = 0.6 oz pur e alcohol) Comments No Sex and Gender Information Value Date Recorded Sex Assigned at Not on file Legal Sex Female 8:40 PM EST Gender Identity Not on file Sexual Orientation Not on file Obstetrics History Last Filed Vital Signs Vital Sign Reading Time Taken Comments Blood Pressure 120/64 09/15/2024 10:32 AM EDT Pulse 64 09/15/2024 10:32 AM EDT Temperature 36.4 ??C (97.6 ??F) 09/15/2024 10:32 AM E DT Respiratory Rate - - Oxygen Saturation - - Inhaled Oxygen Concentration - - Weight 67.1 kg (148 lb) 09/15/2024 10:32 AM EDT Height 162.6 cm (5' 4 ) 09/15/2024 10:32 AM EDT Body Mass Index 25.4 09/15/2024 10:32 AM EDT Plan of Treatment Upcoming Encounters Date Type Department Care Team (Late st Contact Info) Description 10/09/2024 11:00 AM EDT Appointment Radiology Department - [address] [phone] 03/18/2025 10:00 AM EST Office Visit Adult Medicine [facility] [address] [place] [address] Kacey Parra, JANICE [address] [place] [address] Health Maintenance Due Date Last Done Comments Zoster Vaccines (2 of 2) 04/05/2021 02/08/2021 Social Influencers of Health Screening 04/12/2022 COVID-19 Vaccine ( season) 2024 03/10/2021, 05/16/2020, 04/25/2020 Depression Screening 09/15/2025 09/15/2024, 09/16/19 24 Falls Risk Assessment 09/15/2025 09/15/2024, 024 Medicare Annual Wellness Visit 09/15/2025 09/15/2024 Breast Cancer Screening 09/16/2025 09/17/19 24, 09/17/2023, 09/12/2022, Additional history exists Cholesterol Screening (Lipid Panel) 05/05/2029 05/05/2024, 06/04/2023 DTaP,Tdap,and Td Vaccines (4 - Td or Tdap) 11/10/2031 11/09/2021, 05/16/2011, 06/15/1999 Colorectal Cancer Screening: Colonoscopy 05/29/2032 05/29/2022 Osteoporosis Screening (Bone Density Screening) 09/12/2032 09/12/2022 Hepatitis C Screening Completed 03/03/2014 RSV Immunization Adult Patients Completed 02/16/2023 Influenza Vaccine Completed 02/17/2024, , 02/21/2022, Additional history exists Pneumococcal Vaccine: 50+ Years Completed 09/15/2024, 06/15/1999 HIB Vaccines Aged Out No longer eligi [...] this topic Medical Devices Implanted Type Area Filter Cloth Maker Device Identifier Shelf Expiration Date Model / Serial / Lot Cement Simplex P Radiopaque Full Dose Bone 10 Pack - [id number] Implanted:Qty: 1 on 01/01/2019 by Tom Pederson MD Left: Knee [employer] 01/03/2021 6191-1-010 / / [id number] Cement Simplex P Radiopaque Full Dose Bone 10 Pack - [id number] Implanted:Qty: 1 on 01/01/2019 by Tom Pederson MD Left: Knee [employer] 01/03/2021 6191-1-010 / / [id number] Component Triathlon 4 Cemented Posterior Stabilized Femoral - [id number] Implanted:Qty: 1 on 01/01/2019 by Tom Pederson MD Left: Knee [employer] 08/06/2023 5515-F-401 / / [id number] Peg Triathlon Modular Fix Distal Femur Knee - [id number] Implanted:Qty: 1 on 01/01/2019 by Tom Pederson MD Left: Knee [employer] 06/09/2023 5575-X-000 / / [id number] Baseplate Triathlon 3 Cemented Primary Tibial Knee - [id number] Implanted:Qty: 1 on 01/01/2019 by Tom Pederson MD Left: Knee [employer] 07/14/2023 5520-B-300 / / [id number] Component Triathlon 9mm 29mm Asymmetric X3 Ptlar Knee - [id number] Implanted:Qty: 1 on 01/01/2019 by Tom Pederson MD Left: Knee [employer] 10/19/2023 5551-G-299 / / [id number] Triathlon Ps Insert - Size 3 12mm X3 - [id number] Implanted:Qty: 1 on 01/01/2019 by Tom Pederson MD Left: Knee [employer] 02/05/2023 5532-G-312 -E / / [id number] Lp Hex Screw 6.5x30mm Stry-Howm [id number] 78 Implanted:Qty: 1 on 10/19/2021 by Tom Pederson MD Right: Hip [employer] [id number] 07/19/2026 8225-3111 / / WTAE Hip Insrt X3 Trident 0d 36mm E Stry-Howm 089-09-58m-200 921 Implanted:Qty: 1 on 10/19/2021 by Tom Pederson MD Right: Hip [employer] [id number] 03/02/2025 623-10-36E / / [id number] Impl Set Bead 2.0mm Vit Dall Miles Stry-Howm 7516-3-352-114 128 Implanted:Qty: 1 on 10/19/2021 by Tom Pederson MD Right: Hip [employer] [id number] 08/16/2026 6704-0-520 / / [id number] Hip Stem Acco Ii Sz5 132deg Stry-Howm 2155-8844-2723 85 Implanted:Qty: 1 on 10/19/2021 by Tom Pederson MD Right: Hip [employer] [id number] 06/20/2026 1259-6359 / / [id number] Hip Head Delta Biolox 36mm -5 Stry-Howm 4902-2-027-549 190 Implanted:Qty: 1 on 10/19/2021 by Tom Pederson MD Right: Hip [employer] [id number] 08/24/2026 6570-0-036 / / [id number] Tritanium Cluster Hole Shell 54mm Stry-Howm 609-04-92f-772 453 Implanted:Qty: 1 on 10/19/2021 by Tom Pederson MD Right: Hip [employer] [id number] 07/04/2026 702-04-54E / / [id number] Lp Hex Screw 6.5x30mm Stry-Howm 5402-5939-0676 78 Implanted:Qty: 1 on 10/19/2021 by Tom Pederson MD Right: Hip [employer] [id number] 07/19/2026 0390-5994 / / WTAE Procedures Procedure Name Priority [...] LAB CHEMISTRY METHOD 05/05/2024 2:50 PM EST [facility] Triglycerides 128 0 - 150 mg/dL LAB CHEMISTRY METHOD 05/05/2024 2:50 PM EST [facility] HDL 103 >=40 mg/dL LAB CHEMISTRY METHOD 05/05/2024 2:50 PM EST [facility] LDL Calculated 115(H) 0 - 100 mg/dL LAB CHEMISTRY METHOD 05/05/2024 2:50 PM EST [facility] VLDL Cholesterol Star 25.6 mg/dL LAB CHEMISTRY METHOD 05/05/2024 2:50 PM EST [facility] Non HDL Chol. (LDL+VLDL) 141 <145 mg/dL LAB CHEMISTRY METHOD 05/05/2024 2:50 PM EST [facility] Chol/HDL Ratio 2.4 0.0 - 4.4 LAB CHEMISTRY METHOD 05/05/2024 2:50 PM EST [facility] Blood Venous blood specimen / Unknown Venipuncture / Unknown 05/05/2024 11:48 AM EST 05/05/2024 11:48 AM EST us Kacey CAMACHO LAB BLOOD ORDERABLES Final Result [facility] [address] [place] [address], * SCREENING MAMMOGRAPHY BI 2-VIEW BREAST INC [...] (World Health Organization Fracture Risk Assessment) [facility] Department of Internal Medicine recommends using National [...] (World Health Organization Fracture Risk Assessment) [facility] Department of Internal Medicine recommendsusing National Osteoporosis [...] PROCEDURES Final R esult * Colonoscopy (05/29/2022) Colonoscopy no interpretation , abstracted Anatomical Region Laterality Modality Other Historical Provider HEALTH MAINTENANCE Final Result * Hepatitis C Screening (03/03/2014) Pathologist Counts include 234 beds at the [facility] Hepatitis C Screening ABSTRACTED Historical Provider HEALTH MAINTENANCE Final Result from Last 3 Months or Most Recently Relevant to Health Maintenance Insurance MEDICARE [facility] Advance Directives Documents on File Type Date Recorded Patient Environmental Service Aide Expl anation Health Care Decision (hx) 06/24/2019 [...] (hx) 06/24/2019 AD BOND DIRECTIVE Care Teams Pot Holder Binder Relationship Specialty Start Date End Date Karen Hart MD [address] [place] [phone] PCP - General Internal Medicine 11/04/21
== END 2024-09-22 13:11 | disposition home or self-care (01) ==
LOC: HO.HOS 12:51
PROVIDERS: PCP Physician Assistant Medical; Visit Provider Orthopaedic Surgery
DX: M75.42 Impingement syndrome of left shoulder (principal)
CPT/HCPCS: 99213; G2211

== ENCOUNTER → 2024-09-22 12:51 | Outpatient (BNVA) | payer MEDICARE, SELFPAY | PROVIDERS: PCP Physician Assistant Medical; Visit Provider Orthopaedic Surgery | DX: M75.42 Impingement syndrome of left shoulder (principal) | CPT/HCPCS: 99212 ==

== ENCOUNTER 2024-12-22 15:23 | Outpatient (AMB) | payer MEDICARE, SELFPAY ==
--- OUTSIDE RECORDS SUMMARY | 2024-12-22 16:40 | XMS_ITS | Clinical Summary ---
Author Organization [facility] [address] [facility] l[address] Address [address] [place] [address] Phone Care Team Providers Care Skein Inspector Name Role Phone Karen Hart MD Primary [...] ROUTE EVERY DAY 08/04/19 23 Active magnesium aspart,citrate, oxide (Triple Magnesium Complex) 400 mg magnesium capsule [...] a day. 90 capsule 05/05/20 24 Active sertraline (ZOLOFT) 100 mg tablet Take [...] 90 tablet 1 09/16/19 25 025 Active omeprazole (PriLOSEC) [address] capsule TAKE 1 CAPSULE BY MOUTH EVERY DAY 90 capsule 1 12/09/19 25 Active atorvastatin (LIPITOR) 20 mg tablet Take 1 tablet (20 mg total) by mouth 1 (one) time each day. 90 tablet 1 12/09/19 25 Active celecoxib (CeleBREX) 200 mg capsule Take 1 capsule (200 mg total) by mouth 1 (one) time each day. 90 capsule 1 12/09/19 25 Active methocarbamoL (ROBAXIN) 750 mg tablet TAKE 1 TABLET BY MOUTH THREE TIMES A DAY 90 tablet 12/12/19 25 Active omeprazole (PriLOSEC) [address] capsule TAKE 1 CAPSULE BY MOUTH EVERY DAY 90 capsule 1 06/17/19 25 025 Discontinued celecoxib (CeleBREX) 200 mg capsule TAKE 1 CAPSULE BY MOUTH EVERY DAY 90 capsule 07/23/19 25 025 Discontinued(Re order) atorvastatin (LIPITOR) 20 mg tablet Take 1 tablet (20 mg total) by mouth 1 (one) time each day. 90 tablet 1 09/16/19 25 025 Discontinued(Re order) methocarbamoL (ROBAXIN) 750 mg tablet TAKE 1 TABLET BY MOUTH 3 TIMES A DAY. 90 tablet 11/14/19 25 025 Discontinued Active Problems Problem Noted [...] reflux 11/26/2005 Overview (02/07/2024): Upper GI endoscopy 7.24.06 was normal on therapy with PPI medications. Assessment & Plan (09/15/2024 11:18 AM EDT): Pure hypercholesterolemia 06/26/2005 Assessment & Plan (09/15/2024 11:18 AM EDT): Asthma 06/26/2005 Allergic rhinitis 06/26/2005 Encounters Date Type Department Care Team Description 10/09/2024 10:56 AM EDT - 10/09/2024 11:59 PM EDT Hospital Encounter Radiology Department - [address] [address] Encounter for screening mammogram for breast cancer Discharge Disposition: Home or Self Care from Last 3 Months Immunizations Name Administration Dates Next Due Influenza Quadravalent, 0.5m l (Fluzone High-dose) 65yo and older 02/16/2023 Influenza trivalent, 0.5mL ( Fluzone High-dose) 65yo and older 02/21/2022 Influenza trivalent, with pr eservative (Fluzone; Afluria) 6mo and older 02/05/2015,02/09/2013,01/30/2012,03/04,02/01/2008,02/05/2007 PPD Test 06/26/2005 Velostack SARS-CoV-2 COVID-19, mRNA, LNP-S, preservative free 03/10/2021,05/16/2020,04/25/2020 Pneumococcal conjugate 20 va lent (Prevnar 20, PCV 20) 2mo and older 09/15/2024 Pneumococcal polysaccharide 23 valent (Pneumovax 23) 2yo and older 06/15/1999 Td Tetanus diptheria (Tdvax) 7yo and older 11/09/2021,06/15/1999 Tdap Tetanus diptheria acell ular pertussis (Boostrix; Adacel) 7yo and older 05/16/2011 Surgical History Surgery Date Site/Laterality Comments BREAST BIOPSY PROCEDURE: OK BIOPSY BREAST OPEN INCISIONAL; COMMENT: Benign OTHER SURGICAL HISTORY 12/2007 PROCEDURE: MAMMOGRAM TONSILLECTOMY PROCEDURE: HISTORICAL TONSILLECTOMY; COMMENT: age 19 SALPINGOOPHORECTOMY PROCEDURE: OK LAPAROSCOPY W/RMVL ADNEXAL STRUCTURES; COMMENT: Left age 19 APPENDECTOMY PROCEDURE: OK APPENDECTOMY; COMMENT: 8th grade COLONOSCOPY 11/2005 PROCEDURE: OK COLONOSCOPY STOMA DX INCLUDING COLLJ SPEC SPX; COMMENT: normal, due 2016 KNEE ARTHROSCOPY 09/04/2012 PROCEDURE: OK ARTHROSCOPY AID TX SPINE&/FX KNEE W/O FIXJ; [...] Name Status Comments Aunt mat Brother Alive NV Father NV Mother lymphoblastic l eukemia and coronary disease [...] Sexual Orientation Not on file Obstetrics History Para Term AB IAB SAB Ectopic Multiple Livin g Live Births 2 2 2 2 Date Outcome GA Total Labor Labor/2nd/3rd Weight Sex Type Anes PTL Renata A1 A5 Name Clin Term Term Last Filed Vital Signs Vital Sign Reading Time Taken Comments Blood Pressure 120/64 09/15/2024 10:32 AM EDT Pulse 64 09/15/2024 10:32 AM EDT Temperature 36.4 C (97.6 F) 09/15/2024 10:32 AM EDT Respiratory Rate - - Oxygen Saturation - - Inhaled Oxygen Concentration - - Weight 67.1 kg (148 lb) 09/15/2024 10:32 AM EDT Height 162.6 cm (5' 4 ) 09/15/2024 10:32 AM EDT Body Mass Index 25.4 09/15/2024 10:32 AM EDT Plan of Treatment Upcoming Encounters Date Type Department Care Team (Late st Contact Info) Description 03/18/2025 10:00 AM EST Office Visit Adult Medicine - [place] [address] [place] [address] Kacey Parra PA [address] [place] [address] Health Maintenance Due Date Last Done Comments Zoster Vaccines (2 of 2) 04/05/2021 02/08/2021 Social Influencers of Health Screening 04/12/2022 COVID-19 Vaccine ( season) 2024 03/10/2021, 05/16/2020, 04/25/2020 Influenza Vaccine (#1) 2025 , 02/16/2023, 02/21/2022, Additional history exists Falls Risk Assessment 09/15/2025 09/15/2024, 024 Medicare Annual Wellness Visit 09/15/2025 09/15/2024 Breast Cancer Screening 10/09/2026 10/10/19, 09/17/2023, 09/17/2023, Additional history exists Cholesterol Screening (Lipid Panel) 05/05/2029 05/05/2024, 06/04/2023 DTaP,Tdap,and Td Vaccines (4 - Td or Tdap) 11/10/2031 11/09/2021, 05/16/2011, 06/15/1999 Colorectal Cancer Screening: Colonoscopy 05/29/2032 05/29/2022 Osteoporosis Screening (Bone Density Screening) 09/12/2032 09/12/2022 Hepatitis C Screening Completed 03/03/2014 RSV Immunization Adult Patients Completed 02/16/2023 Depression Screening Completed 09/15/2024, 09/16/19 Pneumococcal Vaccine: 50+ Years Completed 09/15/2024, 06/15/1999 [...] this topic Medical Devices Implanted Type Area Promotions Intern Device Identifier Shelf Expiration Date Model / Serial / Lot Cement Simplex P Radiopaque Full Dose Bone 10 Pack - [id number] Implanted:Qty: 1 on 01/01/2019 by Tom Pederson MD Left: Knee [employer] 01/03/2021 6191-1-010 / / [id number] Cement Simplex P Radiopaque Full Dose Bone 10 Pack - [id number] Implanted:Qty: 1 on 01/01/2019 by Tom Pederson MD Left: Knee [employer] 01/03/2021 6191-1- / / [id number] Component Triathlon 4 Cemented Posterior Stabilized Femoral - [id number] Implanted:Qty: 1 on 01/01/2019 by Tom Pederson MD Left: Knee [employer] 08/06/2023 5515-F-401 / / [id number] Peg Triathlon Modular Fix Distal Femur Knee - [id number] Implanted:Qty: 1 on 01/01/2019 by Tom Pederson MD Left: Knee [employer] 06/09/2023 5575-X-000 / / [id number] Baseplate Triathlon 3 Cemented Primary Tibial Knee - [id number] Implanted:Qty: 1 on 01/01/2019 by Tom Pederson MD Left: Knee [employer] 07/14/2023 5520-B-300 / / [id number] Component Triathlon 9mm 29mm Asymmetric X3 Ptlar Knee - [id number] Implanted:Qty: 1 on 01/01/2019 by Tom Pederson MD Left: Knee [employer] 10/19/2023 5551-G-299 / / [id number] Triathlon Ps Insert - Size 3 12mm X3 - [id number] Implanted:Qty: 1 on 01/01/2019 by Tom Pederson MD Left: Knee [employer] 02/05/2023 5532-G-312 -E / / [id number] Lp Hex Screw 6.5x30mm Stry-Howm [id number] 78 Implanted:Qty: 1 on 10/19/2021 by Tom Pederson MD Right: Hip [employer] [id number] 07/19/2026 5495-7588 / / WTAE Hip Insrt X3 Trident 0d 36mm E Stry-Howm 296-61-82m-200 921 Implanted:Qty: 1 on 10/19/2021 by Tom Pederson MD Right: Hip [employer] [id number] 03/02/2025 623-10-36E / / [id number] Impl Set Bead 2.0mm Vit Dall Miles Stry-Howm 0073-9-561-114 128 Implanted:Qty: 1 on 10/19/2021 by Tom Pederson MD Right: Hip [employer] [id number] 08/16/2026 6704-0-520 / / [id number] Hip Stem Acco Ii Sz5 132deg Stry-Howm 6048-9378-7171 85 Implanted:Qty: 1 on 10/19/2021 by Tom Pederson MD Right: Hip [employer] [id number] 06/20/2026 1935-4921 / / [id number] Hip Head Delta Biolox 36mm -5 Stry-Howm 4381-6-686-549 190 Implanted:Qty: 1 on 10/19/2021 by Tom Pederson MD Right: Hip [employer] [id number] 08/24/2026 6570-0-036 / / [id number] Tritanium Cluster Hole Shell 54mm Stry-Howm 134-02-22i-772 453 Implanted:Qty: 1 on 10/19/2021 by Tom Pederson MD Right: Hip [employer] [id number] 07/04/2026 702-04-54E / / [id number] Lp Hex Screw 6.5x30mm Stry-Howm 1458-5978-4634 78 Implanted:Qty: 1 on 10/19/2021 by Tom Pederson MD Right: Hip [employer] [id number] 07/19/2026 5143-4479 / / WTAE Procedures Procedure Name Priority Date/Time Associated Diagnosis Comments MG MAMMO DIGITAL SCREENING W ELLIS BILAT Routine 10/09/2024 11:09 AM EDT Encounter for screening mammogram for breast cancer LIPID PANEL WITH REFLEX TO DIRECT LDL Routine 05/05/2024 11:48 AM EST Pure hypercholesterolemia DEPRESSION SCREENING Routine 09/16/2023 FALLS RISK ASSESSMENT Routine 09/16/2023 DXA BONE DENSITY STUDY 1+ SITS AXIAL SKEL Routine 09/12/2022 3:19 PM EDT Encounter for screening for osteoporosis COLONOSCOPY Routine 05/29/2022 HEPATITIS C SCREENING Routine 03/03/2014 from Last 3 Months or Most Recently Relevant to Health Maintenance Results * MG Mammo Digital Screening w Ellis bilat (10/09/2024 11:09 AM EDT) Anatomical Region Laterality Modality Breast Bilateral Mammography 10/09/2024 3:10 PM EDT Impressions 10/09/2024 3:14 PM EDT No mammographic evidence for malignancy. BI-RADS CATEGORY: 1 - NEGATIVE RECOMMENDATION: Screening bilateral mammogram is recommended in 1 year. Mammo Location: [facility], [address] [place] [address], [phone], . -------- FINAL REPORT -------- Dictated By: Celia Vivas Dictated Date: 10/09/2024 15:10 ET Assigned Physician: Celia Vivas Reviewed and Electronically Signed By: Celia Vivas Signed Date: 10/09/2024 15:14 ET Workstation ID: [id number] Transcribed By: Self Edit Transcribed Date: 10/09/2024 15:10 ET Narrative 10/09/2024 3:14 PM EDT Bilateral screening mammogram. CLINICAL: 69 years old, Female, routine annual exam. COMPARISON: Prior studies, latest from 09/04/2023. TECHNIQUE: Bilateral MLO and CC views were obtained digitally with 2-D C views and 3-D mammogram (digital breast tomosynthesis). Computer-aided detection was utilized in evaluation of this exam (CAD). FINDINGS: There is no evidence of suspicious mass or architectural distortion. No worrisome calcifications are evident. There has been no significant change from prior exam(s). BREAST DENSITY: C - The breasts are heterogeneously dense which may obscure small masses. Procedure Note Celia Vivas MD - 10/09/2024 Bilateral screening mammogram. CLINICAL: 69 years old, Female, routine annual exam. COMPARISON: Prior studies, latest from 09/04/2023. TECHNIQUE: Bilateral MLO and CC views were obtained digitally with 2-D Cviews and 3-D mammogram (digital breast tomosynthesis). Computer-aideddetection was utilized in evaluation of this exam (CAD). FINDINGS: There is no evidence of suspicious mass or architectural distortion. Noworrisome calcifications are evident. There has been no significantchange from prior exam(s). BREAST DENSITY: C - The breasts are heterogeneously dense which mayobscure small masses. IMPRESSION: No mammographic evidence for malignancy. BI-RADS CATEGORY: 1 - NEGATIVE RECOMMENDATION: Screening bilateral mammogram is recommended in 1 year. Mammo Location: [facility], [address] [place] [address], [phone], . -------- FINAL REPORT -------- Dictated By: Celia Vivas Dictated Date: 10/09/2024 15:10 ET Assigned Physician: Celia Vivas Reviewed and Electronically Signed By: Celia Vivas Signed Date: 10/09/2024 15:14 ET Workstation ID: [id number] Transcribed By: Self Edit Transcribed Date: 10/09/2024 15:10 ET Karen Hart MD IMG BI PROCEDURES Irma l Result * (ABNORMAL) Lipid panel with reflex to direct LDL (05/05/2024 11:48 AM EST) Cholesterol 244(H) 0 - 200 mg/dL LAB CHEMISTRY METHOD 05/05/2024 2:50 PM [facility] Triglycerides 128 0 - 150 mg/dL LAB CHEMISTRY METHOD 05/05/2024 2:50 PM [facility] HDL 103 >=40 mg/dL LAB CHEMISTRY METHOD 05/05/2024 2:50 PM [facility] LDL Calculated 115(H) 0 - 100 mg/dL LAB CHEMISTRY METHOD 05/05/2024 2:50 PM [facility] VLDL Cholesterol Star 25.6 mg/dL LAB CHEMISTRY METHOD 05/05/2024 2:50 PM [facility] Non HDL Chol. (LDL+VLDL) 141 <145 mg/dL LAB CHEMISTRY METHOD 05/05/2024 2:50 PM [facility] Chol/HDL Ratio 2.4 0.0 - 4.4 LAB CHEMISTRY METHOD 05/05/2024 2:50 PM EST [facility] Blood Venous blood specimen / Unknown Venipuncture / Unknown 05/05/2024 11:48 AM EST 05/05/2024 11:48 AM EST Kacey CAMACHO LAB BLOOD ORDERABLES Final Result [facility] [address] [place] [address], * Falls Risk Assessment (09/16/2023) Falls Risk Assessment ABSTRACTED Historical Provider MD HEALTH MAINTENANCE Final Result * Depression Screening (09/16/2023) Depression Screening ABSTRACTED Historical Provider MD HEALTH MAINTENANCE Final Result * DXA BONE DENSITY STUDY 1+ SITS AXIAL SKEL (09/12/2022 3:19 PM EDT) Anatomical Region Laterality Modality Bone Densitometr y 11/09/2021 4:07 PM EDT Narrative 09/12/2022 5:43 PM EDT BONE DENSITY Lumbar Spine T-score is +2.1 [...] (World Health Organization Fracture Risk Assessment) [facility] Department of Internal Medicine recommends [...] (World Health Organization Fracture Risk Assessment) [facility] Department of Internal Medicine recommendsusing [...] PROCEDURES Final R esult * Colonoscopy (05/29/2022) [facility] Colonoscopy no interpretation , abstracted Anatomical Region Laterality Modality Other Historical Provider HEALTH MAINTENANCE Final Result * Hepatitis C Screening (03/03/2014) [facility] Hepatitis C Screening ABSTRACTED Result [facility] Historical Provider HEALTH MAINTENANCE Final Result from Last 3 Months or Most Recently Relevant to Health Maintenance Insurance MEDICARE [facility] Advance Directives Documents on File Type Date Recorded Patient Climate Change Analyst Expl anation Health Care Decision (hx) 06/24/2019 [...] (hx) 06/24/2019 AD BOND DIRECTIVE Care Teams Skein Inspector Relationship Specialty Start Date End Date Karen Hart MD [address] [place] [phone] PCP - General Internal Medicine 11/04/21
--- OUTSIDE RECORDS SUMMARY | 2024-12-22 16:40 | XMS_ITS | Clinical Summary ---
Author Organization [facility] Address [address] [place] [phone] Phone Care Team Providers Care Crusher Wet Ground Mica Name Role Phone Kacey Parra Primary Care Provid er Social History Tobacco Use Types Packs/Day Years Used Date Smoking Tobacco: Never Assessed Education Answer Date Recorded Are you interested in more education? Not on errol e 09/01/2022 Are you concerned about learning? Not on file 09/01/2022 No 09/01/2022 No 09/01/2022 Digital Access Answer Date Recorded No 09/30/2022 No 09/30/2022 No 09/30/2022 Reliable internet access at home? Not on file 09/30/2022 Device with a working camera? Not on file Comments Unknown Sex and Gender Information Value Date Recorded Sex Assigned at Not on file Legal Sex Female 3:28 PM EDT Gender Identity Not on file Sexual Orientation Not on file Plan of Treatment Health Maintenance Due Date Last Done Comments Adult Td,Tdap Booster 1955 DEPRESSION SCREENING 1967 SMOKING Hx and SMOKELESS TOB ACCO SCREENING 1968 HEPATITIS C SCREENING 1973 MAMMOGRAM 1995 COLOGUARD 2000 COLONOSCOPY 2000 COLORECTAL CANCER SCREENING 2000 FIT TEST 2000 FOBT 2000 SIGMOIDOSCOPY 2000 VIRTUAL COLONOSCOPY 2000 PNEUMOCOCCAL VACCINES (50+ y ears) (1 of 1 - PCV) 2005 ZOSTER VACCINES (1 of 2) 2005 OSTEOPOROSIS SCREENING INITI AL (ONE-TIME) 2020 COVID-19 VACCINE (2023-2 5 season) 2024 LIPID PANEL 06/04/2028 06/04/2023 RSV VACCINE (1 - 1-dose 75+ series) 2030 HEPATITIS A VACCINES Aged Out No long er eligible based on patient's age to complete this topic HIB VACCINES Aged Out No longer eligi ble based on patient's age to complete this topic MENINGOCOCCAL VACCINES (ACWY) Aged Out No longer eligible based on patient's age to complete this topic MENINGOCOCCAL VACCINES (B) Aged Out N o longer eligible based on patient's age to complete this topic Medical Devices Not on file Insurance MEDICARE PART A & B [facility] MEDEX SUPPLEMENT MEDICARE PART A & B [employer] MEDEX SUPPLEMENT MEDICARE PART A & B [employer] MEDEX SUPPLEMENT MEDICARE PART A & B [employer] MEDEX SUPPLEMENT MEDICARE PART A & B [employer] MEDEX SUPPLEMENT MEDICARE PART A & B [employer] MEDEX SUPPLEMENT MEDICARE PART A & B [employer] MEDEX SUPPLEMENT MEDICARE PART A & B [employer] MEDEX SUPPLEMENT MEDICARE PART A & B [employer] MEDEX SUPPLEMENT Care Teams Crusher Wet Ground Mica Relationship Specialty Start Date End Date Kacey Parra PA [address] [place] [phone] PCP - General Unknown Provider Specialty 10/25/21 Additional Source Comments The information contained in this document represents components of the legal health record. It is not the complete legal health record.[facility]
--- OUTSIDE RECORDS SUMMARY | 2024-12-22 16:40 | XMS_ITS | Clinical Summary ---
Author Organization [facility] Address [address] [place] [address] Care Team Providers Care Pawn Shop Keeper Name Role Phone Kacey Parra PA-C Primary [...] Comments Cancer Brother PANCREATIC Heart disease Brother MO with stent Heart disease Father CABG Leukemia Father Heart disease Mother CHF Cancer Sister 1 BREAST Arthritis Sister 2 Heart disease Sister 2 MO X 2 Hyperlipidemia Sister 2 GI problems [...] 77 10/20/2021 7:43 AM EDT Temperature 37.5 C (99.5 F) 10/20/2021 7:43 AM EDT Respiratory Rate 16 10/20/2021 7:43 AM EDT [...] 03/10/2021, 05/16/2020, 04/25/2020 Influenza Vaccine (#1) 2025 RSV Adult > 60+ Yrs or (1 - 1-dose 75+ series) 2030 Hepatitis B Vaccines Aged Out No long er eligible based on patient's age to complete this topic RSV Ped < 20 months Aged Out No longe r eligible based on patient's age to complete this topic Medical Devices Implanted Type Area Soldering Machine Feeder Device Identifier Shelf Expiration Date Model / Serial / Lot Cement Simplex P Radiopaque Full Dose Bone 10 Pack - [id number] - [id number] Implanted:Qty: 1 on 01/01/2019 by Tom Pederson MD [facility] Left: Knee [employer] 01/03/2021 6191-1-010 / / [id number] Cement Simplex P Radiopaque Full Dose Bone 10 Pack - 088651 - [id number] Implanted:Qty: 1 on 01/01/2019 by Tom Pederson MD at [facility] Left: Knee [employer] 01/03/2021 6191-1-010 / / [id number] Component Triathlon 4 Cemented Posterior Stabilized Femoral - 258238 - [id number] Implanted:Qty: 1 on 01/01/2019 by Tom Pederson MD [place] [facility] Left: Knee [employer] 08/06/2023 5515-F-401 / / [id number] Peg Triathlon Modular Fix Distal Femur Knee - 927025 - [id number] Implanted:Qty: 1 on 01/01/2019 by Tom Pederson MD [place] [facility] Left: Knee [employer] 06/09/2023 5575-X-000 / / [id number] Baseplate Triathlon 3 Cemented Primary Tibial Knee - 616736 - [id number] Implanted:Qty: 1 on 01/01/2019 by Tom Pederson MD at [facility] Left: Knee [employer] 07/14/2023 5520-B-300 / / [id number] Component Triathlon 9mm 29mm Asymmetric X3 Ptlar Knee - 168821 - [id number] Implanted:Qty: 1 on 01/01/2019 by Tom Pederson MD [place] [facility] Left: Knee [employer] 10/19/2023 5551-G-299 / / [id number] Triathlon Ps Insert - Size 3 12mm X3 - [id number] - [id number] Implanted:Qty: 1 on 01/01/2019 by Tom Pederson MD [place] [facility] Left: Knee [employer] 02/05/2023 5532-G-312 -E / / [id number] Lp Hex Screw 6.5x30mm Stry-[facility] 4634-9595-0035 78 - [id number] Implanted:Qty: 1 on 10/19/2021 by Tom Pederson MD [place] [facility] Right: Hip [employer] [id number] 07/19/2026 9111-8688 / / WTAE Hip Insrt X3 Trident 0d 36mm E Stry-Howm 736-17-85f-200 921 - [id number] Implanted:Qty: 1 on 10/19/2021 by Tom Pederson MD [place] [facility] Right: Hip [employer] [id number] 03/02/2025 623-10-36E / / [id number] Impl Set Bead 2.0mm Vit Dall Miles Stry-Howm 8484-6-629-114 128 - [id number] Implanted:Qty: 1 on 10/19/2021 by Tom Pederson MD [place] [facility] Right: Hip [employer] [id number] 08/16/2026 6704-0-520 / / [id number] Hip Stem Acco Ii Sz5 132deg Stry-Howm 0397-7239-8828 85 - [id number] Implanted:Qty: 1 on 10/19/2021 by Tom Pederson MD [place] [facility] Right: Hip [employer] [id number] 06/20/2026 7739-2762 / / [id number] Hip Head Delta Biolox 36mm -5 Stry-Howm 3947-6-847-549 190 - [id number] Implanted:Qty: 1 on 10/19/2021 by Tom Pederson MD [place] [facility] Right: Hip [employer] [id number] 08/24/2026 6570-0-036 / / [id number] Tritanium Cluster Hole Shell 54mm Stry-Howm 038-39-53y-772 453 - [id number] Implanted:Qty: 1 on 10/19/2021 by Tom Pederson MD [place] [facility] Right: Hip [employer] [id number] 07/04/2026 702-04-54E / / [id number] Lp Hex Screw 6.5x30mm Stry-How 2427-3817-5731 78 - [id number] Implanted:Qty: 1 on 10/19/2021 by Tom Pederson MD at [facility] Right: Hip [employer] [id number] 07/19/2026 8311-2341 / / WTAE Advance Directives For more information, please contact: [phone] Latest Code Status on File Code Status [...] way: discussion with patient . Care Teams Pawn Shop Keeper Relationship Specialty Start Date End Date Kacey Parra PA-C [address] [place] [phone] PCP - General Medical Services 10/12/21
--- OUTSIDE RECORDS SUMMARY | 2024-12-22 16:40 | XMS_ITS ---
Author Name [facility] Organization Unknown Encounters Encounter Type Encounter Reason Primary Diagnosis Location Date Ambulatory [facility] 11/14/2022 Care Team Organization Name Specialty Phone Email Start Date End Da te [facility] Termed, PROVIDER Primary Care 01/10/202312/04 [facility] NULL Primary Care 03/13/2022 12/23/2023
== END 2024-12-22 15:34 | disposition home or self-care (01) ==
LOC: HO.HMGAL 15:23
PROVIDERS: PCP Physician Assistant Medical; Visit Provider Registered Nurse Emergency
DX: J30.89 Other allergic rhinitis (principal)
CPT/HCPCS: 95117; 95165

== ENCOUNTER 2025-01-27 12:42 | Outpatient (AMB) | payer MEDICARE, SELFPAY ==
--- OUTSIDE RECORDS SUMMARY | 2025-01-27 15:11 | XMS_ITS | Clinical Summary ---
Author Organization [facility] [address] [facility] [address] Address [address] [place] [address] Phone Care Team Providers Care Senior Program Manager Name Role Phone Karen Hart MD Primary Care Provider Allergies Active Allergy Reactions Criticality Noted Date Comments Other Nausea And Vomiting 08/10/2009 Headaches, nausea, vomiting Scopolamine Nausea Only,Other Medium 01/01/2019 Double vision Medications valACYclovir (VALTREX) 500 mg tablet TAKE 1 TABLET BY MOUTH 3 TIMES DAILY NEEDED FOR OTHER (COLD SORES). 07/19/2023 Active fluticasone propionate (FLONASE) 50 mcg/actuation nasal spray SPRAY 1 SPRAY BY NASAL ROUTE EVERY DAY 08/03/2022 Active magnesium aspart,citrate,o xide (Triple Magnesium Complex) 400 mg magnesium capsule [...] 3 (three) times a day. 90 capsule 05/05/2024 Active sertraline (ZOLOFT) 100 mg tablet Take 1 tablet (100 mg total) by mouth 1 (one) time each day. Take with 25mg for total of 125mg 90 tablet 1 09/15/2024 Active sertraline (ZOLOFT) 25 mg tablet Take 1 tablet (25 mg total) by mouth 1 (one) time each day. Take with 100 for total of 125mg 90 tablet 1 09/15/2024 03/14/20 25 Active omeprazole (PriLOSEC) [address] capsule TAKE 1 CAPSULE BY MOUTH EVERY DAY 90 capsule 1 12/08/2024 Active atorvastatin (LIPITOR) 20 mg tablet Take 1 tablet (20 mg total) by mouth 1 (one) time each day. 90 tablet 1 12/08/2024 Active celecoxib (CeleBREX) 200 mg capsule Take 1 capsule (200 mg total) by mouth 1 (one) time each day. 90 capsule 1 12/08/2024 Active methocarbamoL (ROBAXIN) 750 mg tablet Take 1 tablet (750 mg total) by mouth 3 (three) times a day. 90 tablet 12/28/2024 Active Active Problems Problem Noted Date Diagnosed [...] AM EDT): Asthma 06/26/2005 Allergic rhinitis 06/26/2005 Immunizations Name Administration Dates Next Due Influenza Quadravalent, 0.5m l (Fluzone High-dose) 65yo and older 02/16/2023 Influenza trivalent, 0.5mL ( Fluzone High-dose) 65yo and older 02/21/2022 Influenza trivalent, with pr eservative (Fluzone; Afluria) 6mo and older 02/05/2015,02/09/2013,01/30/2012,03/04,02/01/2008,02/05/2007 PPD Test 06/26/2005 [employer] SARS-CoV-2 COVID-19, mRNA, LNP-S, preservative free 03/10/2021,05/16/2020,04/25/2020 Pneumococcal conjugate 20 va lent (Prevnar 20, PCV 20) 2mo and older 09/15/2024 Pneumococcal polysaccharide 23 valent (Pneumovax 23) 2yo and older 06/15/1999 Td Tetanus diptheria (Tdvax) 7yo and older 11/09/2021,06/15/1999 Tdap Tetanus diptheria acell ular pertussis (Boostrix; Adacel) 7yo and older 05/16/2011 Surgical History Surgery Date Site/Laterality Comments BREAST BIOPSY PROCEDURE: IA BIOPSY BREAST OPEN INCISIONAL; COMMENT: Benign OTHER SURGICAL HISTORY 12/2007 PROCEDURE: MAMMOGRAM TONSILLECTOMY PROCEDURE: HISTORICAL TONSILLECTOMY; COMMENT: age 19 SALPINGOOPHORECTOMY PROCEDURE: IA LAPAROSCOPY W/RMVL ADNEXAL STRUCTURES; COMMENT: Left age 19 APPENDECTOMY PROCEDURE: IA APPENDECTOMY; COMMENT: 8th grade COLONOSCOPY 11/2005 PROCEDURE: IA COLONOSCOPY STOMA DX INCLUDING COLLJ SPEC SPX; COMMENT: normal, due 2015 KNEE ARTHROSCOPY 09/04/2012 PROCEDURE: IA ARTHROSCOPY AID TX SPINE&/FX KNEE W/O FIXJ; [...] Name Status Comments Aunt mat Brother Alive MT Father MT Mother lymphoblastic l eukemia and coronary disease [...] 10:00 AM EST Office Visit Adult Medicine [facility] [address] [place] [id number] Kacey Parra PA [address] [place] [address] Health Maintenance Due Date Last Done Comments Zoster Vaccines (2 of 2) 04/05/2021 02/08/2021 Social Influencers of Health Screening 04/12/2022 COVID-19 Vaccine ( season) 2025 03/10/2021, 05/16/2020, 04/25/2020 Influenza Vaccine (#1) 2025 , 02/16/2023, 02/21/2022, Additional history exists Falls Risk Assessment 09/15/2025 09/15/2024, 024 Medicare Annual Wellness Visit 09/15/2025 09/15/2024 Breast Cancer Screening 10/09/2026 10/10/19 25, 09/17/2023, 09/17/2023, Additional history exists Cholesterol Screening [...] this topic Medical Devices Implanted Type Area Oil Paint Shader Device Identifier Shelf Expiration Date Model / Serial / Lot Cement Simplex P Radiopaque Full Dose Bone 10 Pack - [id number] Implanted:Qty: 1 on 01/01/2019 by Tom Pederson MD Left: Knee [employer] 01/03/2021 6191--010 / / [id number] Cement Simplex P Radiopaque Full Dose Bone 10 Pack - [id number] Implanted:Qty: 1 on 01/01/2019 by Tom Pederson MD Left: Knee [employer] 01/03/2021 6191-010 / / [id number] Component Triathlon 4 Cemented Posterior Stabilized Femoral - [id number] Implanted:Qty: 1 on 01/01/2019 by Tom Pederson MD Left: Knee [employer] 08/06/2023 5515-F-401 / / [id number] Peg Triathlon Modular Fix Distal Femur Knee - [id number] Implanted:Qty: 1 on 01/01/2019 by Tom Pederson MD Left: Knee [employer] 06/09/2023 5575-X-000 / / [id number] Baseplate Triathlon 3 Cemented Primary Tibial Knee - [id number] Implanted:Qty: 1 on 01/01/2019 by Tom Pederson MD Left: Knee [employer] 07/14/2023 5520-B-300 / / [id number] Component Triathlon 9mm 29mm Asymmetric X3 Ptlar Knee - [id number] Implanted:Qty: 1 on 01/01/2019 by Tom Pederson MD Left: Knee [employer] 10/19/2023 5551-G-299 / / [id number] Triathlon Ps Insert - Size 3 12mm X3 - [id number] Implanted:Qty: 1 on 01/01/2019 by Tom Pederson MD Left: Knee [employer] 02/05/2023 5532-G-312 -E / / [id number] Lp Hex Screw 6.5x30mm Str-[facility] 6629-2037-7032 78 Implanted:Qty: 1 on 10/19/2021 by Tom Pederson MD Right: Hip [employer] [id number] 07/19/2026 9682-1240 / / WTAE Hip Insrt X3 Trident 0d 36mm E Stry-Howm 875-96-33s-200 921 Implanted:Qty: 1 on 10/19/2021 by Tom Pederson MD Right: Hip [employer] [id number] 03/02/2025 623-10-36E / / [id number] Impl Set Bead 2.0mm Vit Dall Miles Stry-Howm 8812-1-730-114 128 Implanted:Qty: 1 on 10/19/2021 by Tom Pederson MD Right: Hip [employer] [id number] 08/16/2026 6704-0-520 / / [id number] Hip Stem Acco Ii Sz5 132deg Stry-Howm 1618-9000-8070 85 Implanted:Qty: 1 on 10/19/2021 by Tom Pederson MD Right: Hip [employer] [id number] 06/20/2026 5649-6720 / / [id number] Hip Head Delta Biolox 36mm -5 Stry-Howm 1614-9-389-549 190 Implanted:Qty: 1 on 10/19/2021 by Tom Pederson MD Right: Hip [employer] [id number] 08/24/2026 6570-0-036 / / [id number] Tritanium Cluster Hole Shell 54mm Stry-Howm 529-04-68z-772 453 Implanted:Qty: 1 on 10/19/2021 by Tom Pederson MD Right: Hip [employer] [id number] 07/04/2026 702-04-54E / / [id number] Lp Hex Screw 6.5x30mm Stry-Howm 9554-5306-0390 78 Implanted:Qty: 1 on 10/19/2021 by Tom Pederson MD Right: Hip [employer] [id number] 07/19/2026 6282-9312 / / WTAE Procedures Procedure Name Priority [...] is recommended in 1 year. Mammo Location: [facility], [address] [place] [address], [address], . -------- FINAL REPORT -------- Dictated By: Celia Vivas Dictated Date: 10/09/2024 15:10 ET Assigned Physician: Celia Vivas Reviewed and Electronically Signed By: Celia Vivas Signed Date: 10/09/2024 15:14 ET Workstation ID: [id number] Transcribed By: Self Edit Transcribed Date: 10/09/2024 [...] is recommended in 1 year. Mammo Location: [facility], [address] [place] [address], [address], . -------- FINAL REPORT -------- Dictated By: Celia Vivas Dictated Date: 10/09/2024 15:10 ET Assigned Physician: Celia Vivas Reviewed and Electronically Signed By: Celia Vivas Signed Date: 10/09/2024 15:14 ET Workstation ID: [id number] Transcribed By: Self Edit Transcribed Date: 10/09/2024 15:10 ET Karen Hart MD IMG BI PROCEDURES Irma l Result * (ABNORMAL) Lipid panel with reflex to direct LDL (05/05/2024 11:48 AM EST) Cholesterol 244(H) 0 - 200 mg/dL LAB CHEMISTRY METHOD 05/05/2024 2:50 PM EST [facility] Triglycerides 128 0 - 150 mg/dL LAB CHEMISTRY METHOD 05/05/2024 2:50 PM EST [facility] HDL 103 >=40 mg/dL LAB CHEMISTRY METHOD 05/05/2024 2:50 PM EST [facility] LDL Calculated 115(H) 0 - 100 mg/dL LAB CHEMISTRY METHOD 05/05/2024 2:50 PM EST [facility] VLDL Cholesterol Star 25.6 mg/dL LAB CHEMISTRY METHOD 05/05/2024 2:50 PM EST [facility] Non HDL Chol. (LDL+VLDL) 141 <145 mg/dL LAB CHEMISTRY METHOD 05/05/2024 2:50 PM EST [facility] Chol/HDL Ratio 2.4 0.0 - 4.4 LAB CHEMISTRY METHOD 05/05/2024 2:50 PM EST [facility] Blood Venous blood specimen / Unknown Venipuncture / Unknown 05/05/2024 11:48 AM EST 05/05/2024 11:48 AM EST Kacey CAMACHO LAB BLOOD ORDERABLES Final Result [facility] [address] [place] [address], [place] [phone] * Falls Risk Assessment (09/16/2023) Falls Risk Assessment ABSTRACTED Historical Provider HEALTH MAINTENANCE Final Result * Depression Screening (09/16/2023) Depression Screening ABSTRACTED Historical Provider HEALTH MAINTENANCE Final Result * DXA BONE [...] (World Health Organization Fracture Risk Assessment) [facility] Department of Internal Medicine recommends [...] the World Health Organization criteria, Brigid Srivastava shouldbe classified as having osteopenia. This patient has a 15% risk of majorosteoporotic fracture and a 1.9% risk of hip fracture over the next 10years. (World Health Organization Fracture Risk Assessment) [facility] Department of Internal Medicine recommendsusing [...] of fracture risk by FRAX. Kacey CAMACHO [facility] DXA PROCEDURES Final R esult * Colonoscopy (05/29/2022) [facility] Colonoscopy no interpretation , abstracted Anatomical Region Laterality Modality Other Historical Provider HEALTH MAINTENANCE Final Result * Hepatitis C Screening (03/03/2014) [facility] Hepatitis C Screening ABSTRACTED Historical Provider HEALTH MAINTENANCE Final Result from Last 3 Months or Most Recently Relevant to Health Maintenance Insurance MEDICARE [facility] Advance Directives Documents on File Type Date Recorded Patient Office Services Specialist Expl anation Health Care Decision (hx) 06/24/2019 [...] (hx) 06/24/2019 AD BOND DIRECTIVE Care Teams Senior Program Manager Relationship Specialty Start Date End Date Karen Hart MD [address] [place] [id number] PCP - General Internal Medicine 11/04/21
--- OUTSIDE RECORDS SUMMARY | 2025-01-27 15:11 | XMS_ITS | Clinical Summary ---
Author Organization [facility] Address [address] [place] [phone] Phone Care Team Providers Care Bobbin Washer Name Role Phone Kacey Parra Primary Care [...] 2005 OSTEOPOROSIS SCREENING INITI AL (ONE-TIME) 2020 INFLUENZA VACCINE (#1) 2024 COVID-19 VACCINE (1 - 4-2 5 season) 2025 LIPID PANEL 06/04/2028 06/04/2023 RSV VACCINE (1 [...] file Insurance MEDICARE PART A & B [facility] MEDEX SUPPLEMENT MEDICARE PART A & B Member Subscriber Plan / Payer (Ef fective 2021-Present) Name:Esha Srivastava Member ID:[id number] Relation to Subscriber:Self Name:Esha Srivastava Subscriber ID:[id number] Payer ID:[id number] Group ID:Not on file Type:Medicare Address: [employer] [address] [place] [phone] [employer] MEDEX SUPPLEMENT MEDICARE PART A & B Member Subscriber Plan / Payer ( fective 2021-) Name:Esha Srivastava Member ID:[id number] Relation to Subscriber:Self Name:Esha Srivastava Subscriber ID:[id number] Payer ID:[id number] Group ID:Not on file Type:Medicare Address: [employer] [address] [place] [id number] [employer] MEDEX SUPPLEMENT MEDICARE PART A & B [employer] SUPPLEMENT MEDICARE PART A & B [employer] MED[employer] SUPPLEMENT MEDICARE PART A & B Member Subscriber Plan / Payer (Ef fective 2021-) Name:Esha Srivastava Member ID:[id number] Relation to Subscriber:Self Name:Esha Srivastava Subscriber ID:[id number] Payer ID:[id number] Group ID:Not on file Type:Medicare Address: [employer] [address] [employer] MEDEX SUPPLEMENT MEDICARE PART A & B [employer] MEDEX SUPPLEMENT MEDICARE PART A & B [employer] MEDEX SUPPLEMENT MEDICARE PART A & B [employer] MED[employer] SUPPLEMENT Care Teams Bobbin Washer Relationship Specialty Start Date End Date Kacey Parra PA [address] [place] [phone] PCP - General Unknown Provider Specialty 10/25/21 Additional Source Comments The information contained in this document represents components of the legal health record. It is not the complete legal health record.[facility]
--- OUTSIDE RECORDS SUMMARY | 2025-01-27 15:11 | XMS_ITS | Clinical Summary ---
Author Organization [facility] Address [address] [place] [address] Care Team Providers Care Digital Asset Specialist Name Role Phone Kacey Parra PA-C Primary [...] Comments Cancer Brother PANCREATIC Heart disease Brother GA with stent Heart disease Father CABG Leukemia Father Heart disease Mother CHF Cancer Sister 1 BREAST Arthritis Sister 2 Heart disease Sister 2 GA X 2 Hyperlipidemia Sister 2 GI problems [...] - PCV) 2020 COVID-19 Vaccine (4 - 2024-2 6 season) 2025 03/10/2021, 05/16/2020, 04/25/2020 Influenza Vaccine (#1) 2025 RSV Adult > 60+ Yrs or (1 - 1-dose 75+ series) 2030 Hepatitis B Vaccines Aged Out No long er eligible based on patient's age to complete this topic RSV Ped < 20 months Aged Out No longe r eligible based on patient's age to complete this topic Medical Devices Implanted Type Area Income Tax Adjuster Device Identifier Shelf Expiration Date Model / Serial / Lot Cement Simplex P Radiopaque Full Dose Bone 10 Pack - [id number] - [id number] Implanted:Qty: 1 on 01/01/2019 by Tom Pederson MD at [facility] Left: Knee [employer] 01/03/2021 6191-1-010 / / [id number] Cement Simplex P Radiopaque Full Dose Bone 10 Pack - 513972 - [id number] Implanted:Qty: 1 on 01/01/2019 by Tom Pederson MD at [facility] Left: Knee [employer] 01/03/2021 6191-1-010 / / [id number] Component Triathlon 4 Cemented Posterior Stabilized Femoral - 637243 - [id number] Implanted:Qty: 1 on 01/01/2019 by Tom Pederson MD at [facility] Left: Knee [employer] 08/06/2023 5515-F-401 / / [id number] Peg Triathlon Modular Fix Distal Femur Knee - 147648 - [id number] Implanted:Qty: 1 on 01/01/2019 by Tom Pederson MD at [facility] Left: Knee [employer] 06/09/2023 5575-X-000 / / [id number] Baseplate Triathlon 3 Cemented Primary Tibial Knee - 537387 - [id number] Implanted:Qty: 1 on 01/01/2019 by Tom Pederson MD at [facility] Left: Knee [employer] 07/14/2023 5520-B-300 / / [id number] Component Triathlon 9mm 29mm Asymmetric X3 Ptlar Knee - 892963 - [id number] Implanted:Qty: 1 on 01/01/2019 by Tom Pederson MD at [facility] Left: Knee [employer] 10/19/2023 5551-G-299 / / [id number] Triathlon Ps Insert - Size 3 12mm X3 - [id number] - [id number] Implanted:Qty: 1 on 01/01/2019 by Tom Pederson MD at [facility] Left: Knee [employer] 02/05/2023 5532-G-312 -E / / [id number] Lp Hex Screw 6.5x30mm Stry-[facility] 9009-8862-0933 78 - [id number] Implanted:Qty: 1 on 10/19/2021 by Tom Pederson MD at [facility] and [facility] Right: Hip [employer] [id number] 07/19/2026 2622-8471 / / WTAE Hip Insrt X3 Trident 0d 36mm E Stry-Howm 839-77-47x-200 921 - [id number] Implanted:Qty: 1 on 10/19/2021 by Tom Pederson MD at [facility] and [facility] Right: Hip [employer] [id number] 03/02/2025 623-10-36E / / [id number] Impl Set Bead 2.0mm Vit Dall Miles Stry-Howm 1702-8-048-114 128 - [id number] Implanted:Qty: 1 on 10/19/2021 by Tom Pederson MD at [facility] and [facility] Right: Hip [employer] [id number] 08/16/2026 6704-0-520 / / [id number] Hip Stem Acco Ii Sz5 132deg Stry-Howm 7721-4490-2492 85 - [id number] Implanted:Qty: 1 on 10/19/2021 by Tom Pederson MD at [facility] and [facility] Right: Hip [employer] [id number] 06/20/2026 6787-7237 / / [id number] Hip Head Delta Biolox 36mm -5 Stry-Howm 6075-7-335-549 190 - [id number] Implanted:Qty: 1 on 10/19/2021 by Tom Pederson MD at [facility] and [facility] Right: Hip [employer] [id number] 08/24/2026 6570-0-036 / / [id number] Tritanium Cluster Hole Shell 54mm Stry-Howm 791-14-88d-772 453 - [id number] Implanted:Qty: 1 on 10/19/2021 by Tom Pederson MD at [facility] and [facility] Right: Hip [employer] [id number] 07/04/2026 702-04-54E / / [id number] Lp Hex Screw 6.5x30mm Stry-How 8494-0621-2728 78 - [id number] Implanted:Qty: 1 on 10/19/2021 by Tom Pederson MD at [facility] Right: Hip [employer] [id number] 07/19/2026 1587-4343 / / WTAE Advance Directives For more information, please contact: [phone] Latest Code Status on File Code Status [...] way: discussion with patient . Care Teams Digital Asset Specialist Relationship Specialty Start Date End Date Kacey Parra PA-C [address] [place] [phone] PCP - General Medical Services 10/12/21
== END 2025-01-27 12:49 | disposition home or self-care (01) ==
LOC: HO.HMGAL 12:42
PROVIDERS: PCP Physician Assistant Medical; Visit Provider Registered Nurse Emergency
DX: J30.89 Other allergic rhinitis (principal)
CPT/HCPCS: 95117; 95165

== ENCOUNTER 2025-02-24 09:38 | Outpatient (AMB) | payer MEDICARE, SELFPAY ==
--- OUTSIDE RECORDS SUMMARY | 2025-02-24 11:10 | XMS_ITS | Clinical Summary ---
Author Organization [facility] [address] [facility] lding Address [address] [place] [address] Phone Care Team Providers Care Safe Deposit Clerk Name Role Phone Karen Hart MD Primary Care Provider Allergies Active Allergy Reactions Criticality Noted Date Comments Other Nausea And Vomiting 08/10/2009 Headaches, nausea, vomiting Scopolamine Nausea Only,Other Medium 01/01/2019 Double vision Medications fluticasone propionate (FLONASE) 50 mcg/actuation nasal spray SPRAY 1 SPRAY BY NASAL ROUTE EVERY DAY 3 Active magnesium aspart,citrate,o xide (Triple Magnesium Complex) [...] times a day. 90 capsule 4 Active sertraline (ZOLOFT) 100 mg tablet Take 1 tablet (100 mg total) by mouth 1 (one) time each day. Take with 25mg for total of 125mg 90 tablet 1 5 Active sertraline (ZOLOFT) 25 mg tablet Take 1 tablet (25 mg total) by mouth 1 (one) time each day. Take with 100 for total of 125mg 90 tablet 1 5 03/14/20 25 Active omeprazole (PriLOSEC) [address] capsule TAKE 1 CAPSULE BY MOUTH EVERY DAY 90 capsule 1 5 Active atorvastatin (LIPITOR) 20 mg tablet Take 1 tablet (20 mg total) by mouth 1 (one) time each day. 90 tablet 1 5 Active celecoxib (CeleBREX) 200 mg capsule Take 1 capsule (200 mg total) by mouth 1 (one) time each day. 90 capsule 1 5 Active methocarbamoL (ROBAXIN) 750 mg tablet Take 1 tablet (750 mg total) by mouth 3 (three) times a day. 270 tablet 5 Active valACYclovir (VALTREX) 500 mg tablet TAKE 1 TABLET BY MOUTH 3 TIMES DAILY NEEDED FOR OTHER (COLD SORES). 60 tablet 1 5 Active valACYclovir (VALTREX) 500 mg tablet TAKE 1 TABLET BY MOUTH 3 TIMES DAILY NEEDED FOR OTHER (COLD SORES). 4 02/18/20 25 Discontinu ed(Reorder ) methocarbamoL (ROBAXIN) 750 mg tablet Take 1 tablet (750 mg total) by mouth 3 (three) times a day. 90 tablet 5 01/28/20 25 Discontinu ed(Reorder ) Active Problems Problem Noted Date Diagnosed Date [...] EDT): Asthma 06/26/2005 Allergic rhinitis 06/26/2005 Immunizations Immunization Administration Dates Next Due Influenza Quadravalent, 0.5m l (Fluzone High-dose) 65yo and older 02/16/2023 Influenza trivalent, 0.5mL ( Fluzone High-dose) 65yo and older 02/21/2022 Influenza trivalent, with pr eservative (Fluzone; Afluria) 6mo and older 02/05/2015,02/09/2013,01/30/2012,03/04,02/01/2008,02/05/2007 PPD Test 06/26/2005 Pfizer SARS-CoV-2 COVID-19, mRNA, LNP-S, preservative free 03/10/2021,05/16/2020,04/25/2020 Pneumococcal conjugate 20 va lent (Prevnar 20, PCV 20) 2mo and older 09/15/2024 Pneumococcal polysaccharide 23 valent (Pneumovax 23) 2yo and older 06/15/1999 Td Tetanus diptheria (Tdvax) 7yo and older 11/09/2021,06/15/1999 Tdap Tetanus diptheria acell ular pertussis (Boostrix; Adacel) 7yo and older 05/16/2011 Surgical History Surgery Date Site/Laterality Comments BREAST BIOPSY PROCEDURE: TX BIOPSY BREAST OPEN INCISIONAL; COMMENT: Benign OTHER SURGICAL HISTORY 12/2007 PROCEDURE: MAMMOGRAM TONSILLECTOMY PROCEDURE: HISTORICAL TONSILLECTOMY; COMMENT: age 19 SALPINGOOPHORECTOMY PROCEDURE: TX LAPAROSCOPY W/RMVL ADNEXAL STRUCTURES; COMMENT: Left age 19 APPENDECTOMY PROCEDURE: TX APPENDECTOMY; COMMENT: 8th grade COLONOSCOPY 11/2005 PROCEDURE: TX COLONOSCOPY STOMA DX INCLUDING COLLJ SPEC SPX; COMMENT: normal, due 2015 KNEE ARTHROSCOPY 09/04/2012 PROCEDURE: TX ARTHROSCOPY AID TX SPINE&/FX KNEE W/O FIXJ; [...] Name Status Comments Aunt mat Brother Alive [place] Father [place] Mother lymphoblastic l eukemia and coronary disease [...] AM EST Office Visit Adult Medicine - [place] [address] [place] [phone] Kacey Parra PA [address] [place] [address] Health Maintenance Due Date Last Done Comments [...] this topic Medical Devices Implanted Type Area Engineer Specialist Device Identifier Shelf Expiration Date Model / Serial / Lot Cement Simplex P Radiopaque Full Dose Bone 10 Pack - [id number] Implanted:Qty: 1 on 01/01/2019 by Tom Pederson MD Left: Knee [employer] 01/03/2021 6191-1- / / [id number] Cement Simplex P Radiopaque Full Dose Bone 10 Pack - [id number] Implanted:Qty: 1 on 01/01/2019 by Tom Pederson MD Left: Knee [employer] 01/03/2021 6191-1- / / [id number] Component Triathlon 4 Cemented Posterior Stabilized Femoral - [id number] Implanted:Qty: 1 on 01/01/2019 by Tom Pederson MD Left: Knee [employer] 08/06/2023 5515-F-401 / / [id number] Peg Triathlon Modular Fix Distal Femur Knee - [id number] Implanted:Qty: 1 on 01/01/2019 by Tom Pederson MD Left: Knee [employer] 06/09/2023 5575-X-000 / / [id number] Baseplate Triathlon 3 Cemented Primary Tibial Knee - [id number] Implanted:Qty: 1 on 01/01/2019 by Tom Pederson MD Left: Knee [employer] 07/14/2023 5520-B-300 / / [id number] Component Triathlon 9mm 29mm Asymmetric X3 Ptlar Knee - [id number] Implanted:Qty: 1 on 01/01/2019 by Tom Pederson MD Left: Knee [employer] 10/19/2023 5551-G-299 / / [id number] Triathlon Ps Insert - Size 3 12mm X3 - [id number] Implanted:Qty: 1 on 01/01/2019 by Tom Pederson MD Left: Knee [employer] 02/05/2023 5532-G-312 -E / / [id number] Lp Hex Screw 6.5x30mm Stry-Howm 3985-2260-4958 78 Implanted:Qty: 1 on 10/19/2021 by Tom Pederson MD Right: Hip [employer] [id number] 07/19/2026 4671-6769 / / WTAE Hip Insrt X3 Trident 0d 36mm E Stry-Howm 377-47-70z-200 921 Implanted:Qty: 1 on 10/19/2021 by Tom Pederson MD Right: Hip [employer] [id number] 03/02/2025 623-10-36E / / [id number] Impl Set Bead 2.0mm Vit Dall Miles Stry-Howm 5688-8-696-114 128 Implanted:Qty: 1 on 10/19/2021 by Tom Pederson MD Right: Hip [employer] [id number] 08/16/2026 6704-0-520 / / [id number] Hip Stem Acco Ii Sz5 132deg Stry-Howm 6476-4572-2213 85 Implanted:Qty: 1 on 10/19/2021 by Tom Pederson MD Right: Hip [employer] [id number] 06/20/2026 1870-9052 / / [id number] Hip Head Delta Biolox 36mm -5 Stry-Howm 3237-8-232-549 190 Implanted:Qty: 1 on 10/19/2021 by Tom Pederson MD Right: Hip [employer] [id number] 08/24/2026 6570-0-036 / / [id number] Tritanium Cluster Hole Shell 54mm Stry-Howm 494-60-66m-772 453 Implanted:Qty: 1 on 10/19/2021 by Tom Pederson MD Right: Hip [employer] [id number] 07/04/2026 702-04-54E / / [id number] Lp Hex Screw 6.5x30mm Stry-Howm 7698-1993-6301 78 Implanted:Qty: 1 on 10/19/2021 by Tom Pederson MD Right: Hip [employer] [id number] 07/19/2026 4759-1072 / / WTAE Procedures Procedure Name Priority [...] is recommended in 1 year. Mammo Location: [facility], [address] [place] [address], [address], . -------- FINAL REPORT -------- Dictated By: Celia Vivas Dictated Date: 10/09/2024 15:10 ET Assigned Physician: Celia Vivas Reviewed and Electronically Signed By: Celia Vivas Signed Date: 10/09/2024 15:14 ET Workstation ID: [id number] Transcribed By: Self Edit Transcribed Date: 10/09/2024 [...] is recommended in 1 year. Mammo Location: [facility], [address] [place] [address], [address], . -------- FINAL REPORT -------- Dictated By: Celia Vivas Dictated Date: 10/09/2024 15:10 ET Assigned Physician: Celia Vivas Reviewed and Electronically Signed By: Celia Vivas Signed Date: 10/09/2024 15:14 ET Workstation ID: [id number] Transcribed By: Self Edit Transcribed Date: 10/09/2024 15:10 ET us Karen Hart MD IMG BI PROCEDURES Irma l Result * (ABNORMAL) Lipid panel with reflex to direct LDL (05/05/2024 11:48 AM EST) Cholesterol 244(H) 0 - 200 mg/dL LAB CHEMISTRY METHOD 05/05/2024 2:50 PM EST [facility] Triglycerides 128 0 - 150 mg/dL LAB CHEMISTRY METHOD 05/05/2024 2:50 PM EST [facility] HDL 103 >=40 mg/dL LAB CHEMISTRY METHOD 05/05/2024 2:50 PM EST [facility] LDL Calculated 115(H) 0 - 100 mg/dL LAB CHEMISTRY METHOD 05/05/2024 2:50 PM EST [facility] VLDL Cholesterol Star 25.6 mg/dL LAB CHEMISTRY METHOD 05/05/2024 2:50 PM EST [facility] Non HDL Chol. (LDL+VLDL) 141 <145 mg/dL LAB CHEMISTRY METHOD 05/05/2024 2:50 PM EST [facility] Chol/HDL Ratio 2.4 0.0 - 4.4 LAB CHEMISTRY METHOD 05/05/2024 2:50 PM EST [facility] Blood Venous blood specimen / Unknown Venipuncture / Unknown 05/05/2024 11:48 AM EST 05/05/2024 11:48 AM EST us Kacey CAMACHO LAB BLOOD ORDERABLES Final Result [facility] [address] [place] [address], [place] [phone] * Falls Risk Assessment (09/16/2023) Falls Risk [...] (World Health Organization Fracture Risk Assessment) [facility] Department of Internal Medicine recommends using [...] (World Health Organization Fracture Risk Assessment) [facility] Department of Internal Medicine recommendsusing National [...] or over-estimation of fracture risk by FRAX. us Kacey CAMACHO [facility] DXA PROCEDURES Final R esult * Colonoscopy (05/29/2022) [facility] Colonoscopy no interpretation , abstracted Anatomical Region Laterality Modality Other Historical Provider HEALTH MAINTENANCE Final Result * Hepatitis C Screening (03/03/2014) Pathologist [facility] Hepatitis C Screening ABSTRACTED Historical Provider HEALTH MAINTENANCE Final Result from Last 3 Months or Most Recently Relevant to Health Maintenance Insurance MEDICARE [facility] Advance Directives Documents on File Type Date Recorded Patient Appraiser Expl anation Health Care Decision (hx) 06/24/2019 [...] (hx) 06/24/2019 AD BOND DIRECTIVE Care Teams Safe Deposit Clerk Relationship Specialty Start Date End Date Karen Hart MD [address] [place] [phone] PCP - General Internal Medicine 11/04/21
--- OUTSIDE RECORDS SUMMARY | 2025-02-24 11:10 | XMS_ITS | Clinical Summary ---
Author Organization [facility] Address [address] [place] [address] Care Team Providers Care Insurance Agency Owner Name Role Phone Kacey Parra PA-C Primary [...] Comments Cancer Brother PANCREATIC Heart disease Brother MD with stent Heart disease Father CABG Leukemia Father Heart disease Mother CHF Cancer Sister 1 BREAST Arthritis Sister 2 Heart disease Sister 2 MD X 2 Hyperlipidemia Sister 2 GI problems [...] this topic Medical Devices Implanted Type Area Building Supervisor Device Identifier Shelf Expiration Date Model / Serial / Lot Cement Simplex P Radiopaque Full Dose Bone 10 Pack - [id number] - [id number] Implanted:Qty: 1 on 01/01/2019 by Tom Pederson MD at [facility] Left: Knee [employer] 01/03/2021 6191-1-010 / / [id number] Cement Simplex P Radiopaque Full Dose Bone 10 Pack - 771214 - [id number] Implanted:Qty: 1 on 01/01/2019 by Tom Pederson MD at [facility] Left: Knee [employer] 01/03/2021 6191-1-010 / / [id number] Component Triathlon 4 Cemented Posterior Stabilized Femoral - 805006 - [id number] Implanted:Qty: 1 on 01/01/2019 by Tom Pederson MD at [facility] Left: Knee [employer] 08/06/2023 5515-F-401 / / [id number] Peg Triathlon Modular Fix Distal Femur Knee - 080458 - [id number] Implanted:Qty: 1 on 01/01/2019 by Tom Pederson MD at [facility] Left: Knee [employer] 06/09/2023 5575-X-000 / / [id number] Baseplate Triathlon 3 Cemented Primary Tibial Knee - 210250 - [id number] Implanted:Qty: 1 on 01/01/2019 by Tom Pederson MD at [facility] Left: Knee [employer] 07/14/2023 5520-B-300 / / [id number] Component Triathlon 9mm 29mm Asymmetric X3 Ptlar Knee - 953975 - [id number] Implanted:Qty: 1 on 01/01/2019 by Tom Pederson MD at [facility] Left: Knee [employer] 10/19/2023 5551-G-299 / / [id number] Triathlon Ps Insert - Size 3 12mm X3 - 846259 - [id number] Implanted:Qty: 1 on 01/01/2019 by Tom Pederson MD at [facility] Left: Knee [employer] 02/05/2023 5532-G-312 -E / / [id number] Lp Hex Screw 6.5x30mm Stry-[facility] 5875-0714-6456 78 - [id number] Implanted:Qty: 1 on 10/19/2021 by Tom Pederson MD at [facility] Right: Hip [employer] [id number] 07/19/2026 6591-4104 / / WTAE Hip Insrt X3 Trident 0d 36mm E Stry-Howm 400-76-42q-200 921 - [id number] Implanted:Qty: 1 on 10/19/2021 by Tom Pederson MD at [facility] and [facility] Right: Hip [employer] [id number] 03/02/2025 623-10-36E / / [id number] Impl Set Bead 2.0mm Vit Dall Miles Stry-Howm 9918-1-629-114 128 - [id number] Implanted:Qty: 1 on 10/19/2021 by Tom Pederson MD at [facility] and [facility] Right: Hip [employer] [id number] 08/16/2026 6704-0-520 / / [id number] Hip Stem Acco Ii Sz5 132deg Stry-Howm 5843-4715-4066 85 - [id number] Implanted:Qty: 1 on 10/19/2021 by Tom Pederson MD at [facility] and [facility] Right: Hip [employer] [id number] 06/20/2026 7012-2259 / / [id number] Hip Head Delta Biolox 36mm -5 Stry-Howm 4947-7-413-549 190 - [id number] Implanted:Qty: 1 on 10/19/2021 by Tom Pederson MD at [facility] and [facility] Right: Hip [employer] [id number] 08/24/2026 6570-0-036 / / [id number] Tritanium Cluster Hole Shell 54mm Stry-Howm 922-89-84n-772 453 - [id number] Implanted:Qty: 1 on 10/19/2021 by Tom Pederson MD at [facility] and [facility] Right: Hip [employer] [id number] 07/04/2026 702-04-54E / / [id number] Lp Hex Screw 6.5x30mm Stry-How 2623-6160-8740 78 - [id number] Implanted:Qty: 1 on 10/19/2021 by Tom Pederson MD at [facility] Right: Hip [employer] [id number] 07/19/2026 7316-8300 / / WTAE Advance Directives For more information, please contact: [phone] Latest Code Status on File Code Status [...] way: discussion with patient . Care Teams Insurance Agency Owner Relationship Specialty Start Date End Date Kacey Parra PA-C [address] [place] [phone] PCP - General Medical Services 10/12/21
== END 2025-02-24 09:47 | disposition home or self-care (01) ==
LOC: HO.HMGAL 09:38
PROVIDERS: PCP Physician Assistant Medical; Visit Provider Registered Nurse Emergency
DX: J30.89 Other allergic rhinitis (principal)
CPT/HCPCS: 95117; 95165

== ENCOUNTER 2025-03-29 11:00 | Outpatient (AMB) | payer MEDICARE, SELFPAY ==
--- OUTSIDE RECORDS SUMMARY | 2025-03-29 14:07 | XMS_ITS | Encounter Summary ---
Author Organization [place] [address] Care Team Providers Care Business Communications Instructor Name Role Phone Karen Hart MD Primary Care Provider Encounter Details Date Type Department Care Team (Late st Contact Info) Description 03/25/2025 Results Follow-Up Adult [facility] [address] [place] [phone] Kacey Parra PA [address] [place] [address] Social History Tobacco Use Types Packs/Day Years Used Date Smoking Tobacco: Former Cigarettes 0 Q uit: 11/13/1970 Smokeless Tobacco: Never Alcohol Use Standard Drinks/Week Comments No 0 (1 standard drink = 0.6 oz pur e alcohol) Comments No Sex and Gender Information Value Date Recorded Sex Assigned at Not on file Legal Sex Female 8:40 PM EST Gender Identity Not on file Sexual Orientation Not on file documented as of this encounter Plan of Treatment Scheduled Orders Name Type Priority Associated Diagnoses Orde r Schedule Basic metabolic panel Lab Routine Hyponatremia 1 Occurrences starting 03/25/2025 until 03/25/2026 CBC and differential Lab Routine Anemia, unspecified type Expected: 03/25/2025, Expires: 03/25/2026 Iron and TIBC Lab Routine Anemia, unspecified type 1 Occurrences starting 03/25/2025 until 03/25/2026 Ferritin Lab Routine Anemia, unspecified type 1 Occurrences starting 03/25/2025 until 03/25/2026 documented as of this encounter Visit Diagnoses Diagnosis Hyponatremia- Primary Hyposmolality and/or hyponatremia Anemia, unspecified type documented in this encounter Additional Health Concerns Assessment Noted Time PHQ-9 Depression Total Score: 0 09/16/19 25 10:37 AM EDT documented as of this encounter Care Teams Business Communications Instructor Relationship Specialty Start Date End Date Karen Hart MD [address] [address] PCP - General Internal Medicine 11/04/21 documented as of this encounter
--- OUTSIDE RECORDS SUMMARY | 2025-03-29 14:07 | XMS_ITS | Clinical Summary ---
Author Organization [facility] Address [address] [place] [address] Care Team Providers Care Acid Bleacher Name Role Phone Kacey Parra PA-C Primary [...] Comments Cancer Brother PANCREATIC Heart disease Brother [place] with stent Heart disease Father CABG Leukemia Father Heart disease Mother CHF Cancer Sister 1 BREAST Arthritis Sister 2 Heart disease Sister 2 OH X 2 Hyperlipidemia Sister 2 GI problems [...] this topic Medical Devices Implanted Type Area Refinery Operator Visbreaking Device Identifier Shelf Expiration Date Model / Serial / Lot Cement Simplex P Radiopaque Full Dose Bone 10 Pack - 919759 - [id number] Implanted:Qty: 1 on 01/01/2019 by Tom Pederson [place] [facility] Left: Knee [employer] 01/03/2021 6191-1-010 / / [id number] Cement Simplex P Radiopaque Full Dose Bone 10 Pack - 274544 - [id number] Implanted:Qty: 1 on 01/01/2019 by Tom Pederson MD at [facility] Left: Knee [employer] 01/03/2021 6191-1-010 / / [id number] Component Triathlon 4 Cemented Posterior Stabilized Femoral - 215858 - [id number] Implanted:Qty: 1 on 01/01/2019 by Tom Pederson MD at [facility] Left: Knee [employer] 08/06/2023 5515-F-401 / / [id number] Peg Triathlon Modular Fix Distal Femur Knee - 969340 - [id number] Implanted:Qty: 1 on 01/01/2019 by Tom Pederson MD at [facility] Left: Knee [employer] 06/09/2023 5575-X-000 / / [id number] Baseplate Triathlon 3 Cemented Primary Tibial Knee - 707036 - [id number] Implanted:Qty: 1 on 01/01/2019 by Tom Pederson MD at [facility] Left: Knee [employer] 07/14/2023 5520-B-300 / / [id number] Component Triathlon 9mm 29mm Asymmetric X3 Ptlar Knee - 828798 - [id number] Implanted:Qty: 1 on 01/01/2019 by Tom Pederson MD at [facility] Left: Knee [employer] 10/19/2023 5551-G-299 / / [id number] Triathlon Ps Insert - Size 3 12mm X3 - 514598 - [id number] Implanted:Qty: 1 on 01/01/2019 by Tom Pederson MD at [facility] Left: Knee [employer] 02/05/2023 5532-G-312 -E / / [id number] Lp Hex Screw 6.5x30mm Stry-[facility] 5120-7089-7341 78 - [id number] Implanted:Qty: 1 on 10/19/2021 by Tom Pederson MD at [facility] Right: Hip [employer] [id number] 07/19/2026 4136-7323 / / WTAE Hip Insrt X3 Trident 0d 36mm E Stry-Howm 059-15-84r-200 921 - [id number] Implanted:Qty: 1 on 10/19/2021 by Tom Pederson MD at [facility] Right: Hip [employer] [id number] 03/02/2025 623-10-36E / / [id number] Impl Set Bead 2.0mm Vit Dall Miles Stry-Howm 7437-2-227-114 128 - [id number] Implanted:Qty: 1 on 10/19/2021 by Tom Pederson MD at [facility] Right: Hip [employer] [id number] 08/16/2026 6704-0-520 / / [id number] Hip Stem Acco Ii Sz5 132deg Stry-Howm 5687-8261-1100 85 - [id number] Implanted:Qty: 1 on 10/19/2021 by Tom Pederson MD at [facility] Right: Hip [employer] [id number] 06/20/2026 2043-9906 / / [id number] Hip Head Delta Biolox 36mm -5 Stry-Howm 0483-9-564-549 190 - [id number] Implanted:Qty: 1 on 10/19/2021 by Tom Pederson MD at [facility] Right: Hip [employer] [id number] 08/24/2026 6570-0-036 / / [id number] Tritanium Cluster Hole Shell 54mm Stry-Howm 296-92-68c-772 453 - [id number] Implanted:Qty: 1 on 10/19/2021 by Tom Pederson MD at [facility] Right: Hip [employer] [id number] 07/04/2026 702-04-54E / / [id number] Lp Hex Screw 6.5x30mm Stry-How 8093-4700-6646 78 - [id number] Implanted:Qty: 1 on 10/19/2021 by Tom Pederson MD at [facility] Right: Hip [employer] [id number] 07/19/2026 1584-0839 / / W[employer] Advance Directives For more information, please contact: [phone] Latest Code Status on File Code Status [...] way: discussion with patient . Care Teams Acid Bleacher Relationship Specialty Start Date End Date Kacey Parra PA-C [address] [place] [phone] PCP - General Medical Services 10/12/21
--- OUTSIDE RECORDS SUMMARY | 2025-03-29 14:07 | XMS_ITS | Clinical Summary ---
Author Organization [facility] [address] [facility] lding Address [address] [place] [address] Phone Care Team Providers Care Investor Relations Manager Name Role Phone Karen Hart MD Primary Care Provider Allergies Active Allergy Reactions Criticality Noted Date Comments Other Nausea And Vomiting 08/10/2009 Headaches, nausea, vomiting Scopolamine Nausea Only,Other Medium 01/01/2019 Double vision Medications fluticasone propionate (FLONASE) 50 mcg/actuation nasal spray SPRAY 1 SPRAY BY NASAL ROUTE EVERY DAY 3 Active magnesium aspart,citrate, oxide (Triple Magnesium Complex) [...] (COLD SORES). 60 tablet 1 5 Active sertraline (ZOLOFT) 25 mg tablet TAKE 1 TABLET BY MOUTH ONCE A DAY 90 tablet 5 Active sertraline (ZOLOFT) 100 mg tablet TAKE 1 TABLET BY MOUTH ONCE A DAY 90 tablet 5 Active sertraline (ZOLOFT) 100 mg tablet Take 1 tablet (100 mg total) by mouth 1 (one) time each day. Take with 25mg for total of 125mg 90 tablet 1 5 025 Discontinued sertraline (ZOLOFT) 25 mg tablet Take 1 tablet (25 mg total) by mouth 1 (one) time each day. Take with 100 for total of 125mg 90 tablet 1 5 025 Discontinued Active Problems Problem Noted Date [...] Status post total left knee replacement 02/17/20 Medial meniscus tear 05/16/2017 Anxiety 08/30/2010 HSV-1 [...] Encounters Date Type Department Care Team Description 03/25/2025 Results Follow-Up Adult Medicine - [address] [phone] Kacey Parra PA 03/18/2025 10:30 AM EST Lab Draw Station - [address] [address] Mild episode of recurrent major depressive disorder (CMS/HCC V24); Pure hypercholesterolemia; Anemia, unspecified type 03/18/2025 10:00 AM EST Office Visit Adult Medicine - [address] [phone] Kacey Parra PA Status post total hip replacement, right (Primary Dx); Gastroesophageal reflux disease, unspecified whether esophagitis present; Mild episode of recurrent major depressive disorder (CMS/HCC V24); Spinal stenosis of lumbar region, unspecified whether neurogenic claudication present; Pure hypercholesterolemia; HSV-1 infection; Chronic left shoulder pain; Anemia, unspecified type from Last 3 Months Immunizations Immunization Administration Dates Next Due Influenza Quadravalent, 0.5m l (Fluzone High-dose) 65yo and older 02/16/2023 Influenza trivalent, 0.5mL ( Fluzone High-dose) 65yo and older 02/17/2024,02/21/2022 Influenza trivalent, with pr eservative (Fluzone; Afluria) 6mo and older 02/05/2015,02/09/2013,01/30/2012,03/04,02/01/2008,02/05/2007 PPD Test 06/26/2005 [employer] SARS-CoV-2 COVID-19, mRNA, LNP-S, preservative free 03/10/2021,05/16/2020,04/25/2020 Pneumococcal conjugate 20 va lent (Prevnar 20, PCV 20) 2mo and older 09/15/2024 Pneumococcal polysaccharide 23 valent (Pneumovax 23) 2yo and older 06/15/1999 RSV, bivalent, protein subun it RSVpreF, 0.5mL, Preservative Free (Arexvy) 50yo and older 02/16/2023 Td Tetanus diptheria (Tdvax) 7yo and older 11/09/2021,06/15/1999 Tdap Tetanus diptheria acell ular pertussis (Boostrix; Adacel) 7yo and older 05/16/2011 Zoster recombinant (Shingrix ) 19yo and older 02/08/2021 Surgical History Surgery Date Site/Laterality Comments BREAST BIOPSY PROCEDURE: VA BIOPSY BREAST OPEN INCISIONAL; COMMENT: Benign OTHER SURGICAL HISTORY 12/2007 PROCEDURE: MAMMOGRAM TONSILLECTOMY PROCEDURE: HISTORICAL TONSILLECTOMY; COMMENT: age 19 SALPINGOOPHORECTOMY PROCEDURE: VA LAPAROSCOPY W/RMVL ADNEXAL STRUCTURES; COMMENT: Left age 19 APPENDECTOMY PROCEDURE: VA APPENDECTOMY; COMMENT: 8th grade COLONOSCOPY 11/2005 PROCEDURE: VA COLONOSCOPY STOMA DX INCLUDING COLLJ SPEC SPX; COMMENT: normal, due 2015 KNEE ARTHROSCOPY 09/04/2012 PROCEDURE: VA ARTHROSCOPY AID TX SPINE&/FX KNEE W/O FIXJ; [...] 0 Q uit: 11/13/1970 Smokeless Tobacco: Never Tobacco [...] Sign Reading Time Taken Comments Blood Pressure 124/74 03/18/2025 9:49 AM EST Pulse 67 03/18/2025 9:49 AM EST Temperature 36.4 C (97.6 F) 09/15/2024 10:32 AM EDT Respiratory Rate - - Oxygen Saturation 100% 03/18/2025 9:49 AM EST Inhaled Oxygen Concentration - - Weight 66.7 kg (147 lb) 03/18/2025 9:49 AM EST Height 162.6 cm (5' 4 ) 09/15/2024 10:32 AM EDT Body Mass Index 25.23 09/15/2024 10:32 AM EDT Plan of Treatment Health Maintenance Due Date Last Done Comments Zoster Vaccines (2 of 2) 04/05/2021 02/08/2021 Social Influencers of Health Screening 04/12/2022 COVID-19 Vaccine ( - season) 2025 03/10/2021, 05/16/2020, 04/25/2020 Influenza Vaccine (#1) 2025 , 02/16/2023, 02/21/2022, Additional history exists Falls Risk Assessment 09/15/2025 09/15/2024, 024 Medicare Annual Wellness Visit 09/15/2025 09/15/2024 Breast Cancer Screening 10/09/2026 10/10/19, 09/17/2023, 09/17/2023, Additional history exists Cholesterol Screening (Lipid Panel) 03/18/2030 03/18/2025, 05/05/2024, 06/04/2023 DTaP,Tdap,and Td Vaccines (4 - [...] this topic Medical Devices Implanted Type Area [employer] P[employer] Laborer Device Identifier Shelf Expiration Date Model / Serial / Lot Cement Simplex P Radiopaque Full Dose Bone 10 Pack - [id number] Implanted:Qty: 1 on 01/01/2019 by Tom Pederson MD Left: Knee [employer] 01/03/2021 6191-1-010 / / [id number] Cement Simplex P Radiopaque Full Dose Bone 10 Pack - [id number] Implanted:Qty: 1 on 01/01/2019 by Tom Pederson MD Left: Knee [employer] 01/03/2021 6191-1-010 / / [id number] Component Triathlon 4 Cemented Posterior Stabilized Femoral - [id number] Implanted:Qty: 1 on 01/01/2019 by Tom Pederson MD Left: Knee [employer] 08/06/2023 5515-F-401 / / [id number] Peg Triathlon Modular Fix Distal Femur Knee - [id number] Implanted:Qty: 1 on 01/01/2019 by Tom Pederson MD Left: Knee [employer] 06/09/2023 5575-X-000 / / [id number] Baseplate Triathlon 3 Cemented Primary Tibial Knee - [id number] Implanted:Qty: 1 on 01/01/2019 by Tom Pederson MD Left: Knee [employer] 07/14/2023 5520-B-300 / / [id number] Component Triathlon 9mm 29mm Asymmetric X3 Ptlar Knee - [id number] Implanted:Qty: 1 on 01/01/2019 by Tom Pederson MD Left: Knee [employer] 10/19/2023 5551-G-299 / / [id number] Triathlon Ps Insert - Size 3 12mm X3 - [id number] Implanted:Qty: 1 on 01/01/2019 by Tom Pederson MD Left: Knee [employer] 02/05/2023 5532-G-312 -E / / [id number] Lp Hex Screw 6.5x30mm Stry-Howm [id number] Implanted:Qty: 1 on 10/19/2021 by Tom Pederson MD Right: Hip [employer] [id number] 07/19/2026 9129-7362 / / WTAE Hip Insrt X3 Trident 0d 36mm E Stry-Howm [id number] Implanted:Qty: 1 on 10/19/2021 by Tom Pederson MD Right: Hip [employer] [id number] 03/02/2025 623-10-36E / / [id number] Impl Set Bead 2.0mm Vit Dall Miles Stry-Howm [id number] 128 Implanted:Qty: 1 on 10/19/2021 by Tom Pederson MD Right: Hip [employer] [id number] 08/16/2026 6704-0-520 / / [id number] Hip Stem Acco Ii Sz5 132deg Stry-Howm [id number] 85 Implanted:Qty: 1 on 10/19/2021 by Tom Pederson MD Right: Hip [employer] [id number] 06/20/2026 1797-9598 / / [id number] Hip Head Delta Biolox 36mm -5 Stry-Howm [id number] 190 Implanted:Qty: 1 on 10/19/2021 by Tom Pederson MD Right: Hip [employer] [id number] 08/24/2026 6570-0-036 / / [id number] Tritanium Cluster Hole Shell 54mm Stry-Howm [id number] 453 Implanted:Qty: 1 on 10/19/2021 by Tom Pederson MD Right: Hip [employer] [id number] 07/04/2026 702-04-54E / / [id number] Lp Hex Screw 6.5x30mm Stry-Howm [id number] 78 Implanted:Qty: 1 on 10/19/2021 by Tom Pederson MD Right: Hip [employer] [id number] 07/19/2026 2632-7918 / / WTAE Procedures Procedure Name Priority Date/Time Associated Diagnosis Comments CBC WITH AUTO DIFFERENTIAL Routine 03/18/2025 10:38 AM EST Anemia, unspecified type CBC AND DIFFERENTIAL Routine 03/18/2025 10:38 AM EST Anemia, unspecified type LIPID PANEL WITH REFLEX TO DIRECT LDL Routine 03/18/2025 10:38 AM EST Pure hypercholesterolemia COMPREHENSIVE METABOLIC PANEL Routine 03/18/2025 10:38 AM EST Mild episode of recurrent major depressive disorder (CMS/HCC V24) MG MAMMO DIGITAL SCREENING W ELLIS BILAT Routine 10/09/2024 11:09 AM EDT Encounter for screening mammogram for breast cancer HM DEPRESSION SCREENING Routine 09/16/2023 FALLS RISK ASSESSMENT Routine 09/16/2023 DXA BONE DENSITY STUDY 1+ SITS AXIAL SKEL Routine 09/12/2022 3:19 PM EDT Encounter for screening for osteoporosis COLONOSCOPY Routine 05/29/2022 HEPATITIS C SCREENING Routine 03/03/2014 from Last 3 Months or Most Recently Relevant to Health Maintenance Results * (ABNORMAL) Lipid panel with reflex to direct LDL (03/18/2025 10:38 AM EST) Cholesterol 233(H) 0 - 200 mg/dL LAB CHEMISTRY METHOD 03/18/2025 3:39 PM [facility] Triglycerides 105 0 - 150 mg/dL LAB CHEMISTRY METHOD 03/18/2025 3:39 PM [facility] HDL 88 >=40 mg/dL LAB CHEMISTRY METHOD 03/18/2025 3:39 PM [facility] LDL Calculated 124(H) 0 - 100 mg/dL LAB CHEMISTRY METHOD 03/18/2025 3:39 PM [facility] Comment:Estimated LDL Calcul ated using equation: Total cholesterol - HDL cholesterol - (Triglycerides/5) VLDL Cholesterol Star 21 mg/dL LAB CHEMISTRY METHOD 03/18/2025 3:39 PM [facility] Non HDL Chol. (LDL+VLDL) 145(H) <145 mg/dL LAB CHEMISTRY METHOD 03/18/2025 3:39 PM [facility] Chol/HDL Ratio 2.6 0.0 - 4.4 LAB CHEMISTRY METHOD 03/18/2025 3:39 PM [facility] Blood Venous blood specimen / Unknown Venipuncture / Unknown 03/18/2025 10:38 AM EST 03/18/2025 10:38 AM EST us Kacey CAMACHO LAB BLOOD ORDERABLES Final Result [facility] [address] [place] [address], * (ABNORMAL) CBC auto differential (03/18/2025 10:38 AM EST) WBC 4.2(L) 4.8 - 10.8 K/mcL LAB HEMETOLOGY METHOD 03/18/2025 12:54 PM EST [facility] RBC 3.80 3.80 - 4.80 M/mcL LAB HEMETOLOGY METHOD 03/18/2025 12:54 PM EST [facility] Hemoglobin 11.7 11.5 - 16.0 g/dL LAB HEMETOLOGY METHOD 03/18/2025 12:54 PM [facility] Hematocrit 34.9(L) 35.0 - 47.0 % LAB HEMETOLOGY METHOD 03/18/2025 12:54 PM EST [facility] MCV 93.1 79.0 - 98.0 FL LAB HEMETOLOGY METHOD 03/18/2025 12:54 PM EST [facility] MCH 31.2 27.0 - 32.0 pcg LAB HEMETOLOGY METHOD 03/18/2025 12:54 PM EST [facility] MCHC 33.5 32.0 - 37.0 g/dL LAB HEMETOLOGY METHOD 03/18/2025 12:54 PM EST [facility] RDW 13.0 11.0 - 15.0 % LAB HEMETOLOGY METHOD 03/18/2025 12:54 PM EST [facility] Platelets 273 130 - 400 K/mcL LAB HEMETOLOGY METHOD 03/18/2025 12:54 PM [facility] MPV 9.4 7.0 - 11.0 FL LAB HEMETOLOGY METHOD 03/18/2025 12:54 PM [facility] NRBC 0.0 <1.0 % LAB HEMETOLOGY METHOD 03/18/2025 12:54 PM [facility] NRBC Absolute 0.00 <0.10 K/mcL LAB HEMETOLOGY METHOD 03/18/2025 12:54 PM [facility] Neutrophils Relative 60.9 % LAB HEMETOLOGY METHOD 03/18/2025 12:54 PM [facility] Lymphocytes Relative 28.5 % LAB HEMETOLOGY METHOD 03/18/2025 12:54 PM [facility] Monocytes Relative 8.3 % LAB HEMETOLOGY METHOD 03/18/2025 12:54 PM [facility] Eosinophils Relative 1.4 % LAB HEMETOLOGY METHOD 03/18/2025 12:54 PM [facility] Basophils Relative 0.7 % LAB HEMETOLOGY METHOD 03/18/2025 12:54 PM [facility] Immature Granulocytes Relative 0.2 % LAB HEMETOLOGY METHOD 03/18/2025 12:54 PM [facility] Neutrophils Absolute 2.56 1.50 - 7.00 K/mcL LAB HEMETOLOGY METHOD 03/18/2025 12:54 PM [facility] Lymphocytes Absolute 1.20 1.00 - 5.00 K/mcL LAB HEMETOLOGY METHOD 03/18/2025 12:54 PM [facility] Monocytes Absolute 0.35 0.20 - 1.00 K/mcL LAB HEMETOLOGY METHOD 03/18/2025 12:54 PM [facility] Eosinophils Absolute 0.06 0.00 - 0.50 K/mcL LAB HEMETOLOGY METHOD 03/18/2025 12:54 PM [facility] Basophils Absolute 0.03 0.00 - 0.20 K/mcL LAB HEMETOLOGY METHOD 03/18/2025 12:54 PM [facility] Immature Granulocytes Absolute 0.01 0.00 - 0.03 K/mcL LAB HEMETOLOGY METHOD 03/18/2025 12:54 PM [facility] Blood Venous blood specimen / Unknown Venipuncture / Unknown 03/18/2025 10:38 AM EST 03/18/2025 10:38 AM EST us Kacey CAMACHO LAB BLOOD ORDERABLES Final Result [facility] [address] [place] [address], [place] [phone] * (ABNORMAL) Comprehensive metabolic panel (03/18/2025 10:38 AM EST) Sodium 132(L) 133 - 145 mmol/L LAB CHEMISTRY METHOD 03/18/2025 3:42 PM [facility] Potassium 4.6 3.5 - 5.5 mmol/L LAB CHEMISTRY METHOD 03/18/2025 3:42 PM [facility] Chloride 99 96 - 110 mmol/L LAB CHEMISTRY METHOD 03/18/2025 3:42 PM [facility] CO2 29 21 - 32 mmol/L LAB CHEMISTRY METHOD 03/18/2025 3:42 PM [facility] Anion Gap 4 3 - 11 LAB CHEMISTRY METHOD 03/18/2025 3:42 PM [facility] Glucose 105(H) 70 - 100 mg/dL LAB CHEMISTRY METHOD 03/18/2025 3:42 PM [facility] BUN 16 5 - 25 mg/dL LAB CHEMISTRY METHOD 03/18/2025 3:42 PM [facility] Creatinine 0.75 0.50 - 1.10 mg/dL LAB CHEMISTRY METHOD 03/18/2025 3:42 PM [facility] eGFR 86 >=60 mL/min/1. 73m2 LAB CHEMISTRY METHOD 03/18/2025 3:42 PM [facility] Comment:Calculation based on the Chronic Kidney Disease Epidemiology Collaboration (CKD-EPI) equation refit without adjustment for race. BUN/Creatinine Ratio 21.3 LAB CHEMISTRY METHOD 03/18/2025 3:42 PM [facility] Calcium 9.3 8.5 - 10.5 mg/dL LAB CHEMISTRY METHOD 03/18/2025 3:42 PM [facility] AST (SGOT) 22 10 - 42 unit/L LAB CHEMISTRY METHOD 03/18/2025 3:42 PM [facility] ALT (SGPT) 29 10 - 60 unit/L LAB CHEMISTRY METHOD 03/18/2025 3:42 PM [facility] Alkaline Phosphatase 71 42 - 121 unit/L LAB CHEMISTRY METHOD 03/18/2025 3:42 PM [facility] Total Protein 6.7 6.0 - 8.0 g/dL LAB CHEMISTRY METHOD 03/18/2025 3:42 PM [facility] Albumin 4.1 3.2 - 5.0 g/dL LAB CHEMISTRY METHOD 03/18/2025 3:42 PM [facility] Total Bilirubin 0.4 0.0 - 1.4 mg/dL LAB CHEMISTRY METHOD 03/18/2025 3:42 PM [facility] Blood Venous blood specimen / Unknown Venipuncture / Unknown 03/18/2025 10:38 AM EST 03/18/2025 10:38 AM EST us Kacey CAMACHO LAB BLOOD ORDERABLES Final Result [facility] [address] [place] [address], [place] [phone] * MG Mammo Digital Screening w Ellsi bilat (10/09/2024 11:09 AM EDT) Anatomical Region Laterality Modality Breast Bilateral Mammography 10/09/2024 3:10 PM EDT Impressions 10/09/2024 3:14 PM EDT No mammographic evidence for malignancy. BI-RADS CATEGORY: 1 - NEGATIVE RECOMMENDATION: Screening bilateral mammogram is recommended in 1 year. Mammo Location: [facility], [address] [place] [address], [address], . -------- FINAL REPORT -------- Dictated By: Celia Vivas Dictated Date: 10/09/2024 15:10 ET Assigned Physician: Celia Vivas Reviewed and Electronically Signed By: Celia Vivas Signed Date: 10/09/2024 15:14 ET Workstation ID: [id number] Transcribed By: Self Edit Transcribed Date: 10/09/2024 [...] is recommended in 1 year. Mammo Location: [facility], [address] [place] [address], [id number], . -------- FINAL REPORT -------- Dictated By: Celia Vivas Dictated Date: 10/09/2024 15:10 ET Assigned Physician: Celia Vivas Reviewed and Electronically Signed By: Celia Vivas Signed Date: 10/09/2024 15:14 ET Workstation ID: [id number] Transcribed By: Self Edit Transcribed Date: 10/09/2024 15:10 ET Karen Hart MD IMG BI PROCEDURES Irma l Result * Falls Risk [...] (World Health Organization Fracture Risk Assessment) [facility] Department of Internal Medicine recommends [...] (World Health Organization Fracture Risk Assessment) [facility] Department of Internal Medicine recommendsusing [...] Final R esult * Colonoscopy (05/29/2022) [facility] Colonoscopy no interpretation , abstracted Anatomical Region Laterality Modality Other Historical Provider HEALTH MAINTENANCE Final Result * Hepatitis C Screening (03/03/2014) 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
--- OUTSIDE RECORDS SUMMARY | 2025-03-29 14:07 | XMS_ITS | Clinical Summary ---
Author Organization [facility] Address [address] [place] [phone] Phone Care Team Providers Care Furniture Assembler And Installer Name Role Phone Kacey Parra Primary Care [...] VACCINE (#1) 2024 COVID-19 VACCINE (1 - 2024-2 6 season) 2025 LIPID PANEL 06/04/2028 06/04/2023 RSV [...] file Insurance MEDICARE PART A & B [facility] MEDEX SUPPLEMENT MEDICARE PART A & B Member Subscriber Plan / Payer (Ef fective 2021-Present) Name:Esha Srivastava Member ID:[id number] Relation to Subscriber:Self Name:Esha Srivastava Subscriber ID:[id number] Payer ID:[id number] Group ID:Not on file Type:Medicare Address: [address] [place] [phone] [employer] MEDEX SUPPLEMENT MEDICARE PART A & B Member Subscriber Plan / Payer ( fective 2021-) Name:Esha Srivastava Member ID:[id number] Relation to Subscriber:Self Name:Esha Srivastava Subscriber ID:[id number] Payer ID:[id number] Group ID:Not on file Type:Medicare Address: [address] [place] [phone] [employer] MEDEX SUPPLEMENT MEDICARE PART A & B [employer] MEDEX SUPPLEMENT MEDICARE PART A & B [employer] MEDEX SUPPLEMENT MEDICARE PART A & B Member Subscriber Plan / Payer (Ef fective 2021-) Name:Esha Srivastava Member ID:[id number] Relation to Subscriber:Self Name:Esha Srivastava Subscriber ID:[id number] Payer ID:[id number] Group ID:Not on file Type:Medicare Address: [employer] [address] [employer] MEDEX SUPPLEMENT MEDICARE PART A & B [employer] MEDEX SUPPLEMENT MEDICARE PART A & B [employer] MEDEX SUPPLEMENT MEDICARE PART A & B [employer] MEDEX SUPPLEMENT Care Teams Furniture Assembler And Installer Relationship Specialty Start Date End Date Kacey Parra PA [address] [place] [id number] PCP - General Unknown Provider Specialty 10/25/21 Additional Source Comments The information contained in this document represents components of the legal health record. It is not the complete legal health record.[facility]
== END 2025-03-29 11:01 | disposition home or self-care (01) ==
LOC: HO.HMGAL 11:00
PROVIDERS: PCP Physician Assistant Medical; Visit Provider Registered Nurse Emergency
DX: J30.89 Other allergic rhinitis (principal)
CPT/HCPCS: 95117; 95165

== ENCOUNTER 2025-05-05 10:55 | Outpatient (AMB) | payer MEDICARE, SELFPAY ==
--- OUTSIDE RECORDS SUMMARY | 2025-05-05 12:26 | XMS_ITS | Clinical Summary ---
Author Organization [facility] [address] [facility] lding Address [address] [facility] [place] [address] Phone Care Team Providers Care Long Term Acute Care Registered Nurse Name Role Phone Karen Hart MD Primary [...] times a day. 90 capsule 05/05/2024 Active omeprazole (PriLOSEC) [address] capsule [...] 3 (three) times a day. 270 tablet 01/28/2025 Active valACYclovir (VALTREX) 500 mg tablet TAKE 1 TABLET BY MOUTH 3 TIMES DAILY NEEDED FOR OTHER (COLD SORES). 60 tablet 1 02/17/2025 Active sertraline (ZOLOFT) 25 mg tablet TAKE 1 TABLET BY MOUTH ONCE A DAY 90 tablet 03/08/2025 Active sertraline (ZOLOFT) 100 mg tablet TAKE 1 TABLET BY MOUTH ONCE A DAY 90 tablet 03/08/2025 Active Active Problems Problem Noted Date Diagnosed [...] reflux 11/26/2005 Overview (02/07/2024): Upper GI endoscopy 7..06 was normal on therapy with PPI medications. 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); Pure hypercholesterolemia; Anemia, unspecified type 03/18/2025 10:00 AM EST Office Visit Adult Medicine - [address] [address] Kacey Parra PA Status post total hip [...] 6mo and older 02/05/2015,02/09/2013,01/30/2012,03/04,02/01/2008,02/05/2007 PPD Test 06/26/2005 [employer] SARS-CoV-2 COVID-19, mRNA, LNP-S, preservative free 03/10/2021,05/16/2020,04/25/2020 [...] Name Status Comments Aunt mat Brother Alive GA Father GA Mother lymphoblastic l eukemia and coronary disease [...] this topic Medical Devices Implanted Type Area Engine Watchman Device Identifier Shelf Expiration Date Model / Serial / Lot Cement Simplex P Radiopaque Full Dose Bone 10 Pack - [id number] Implanted:Qty: 1 on 01/01/2019 by Tom Pederson MD Left: Knee [employer] 01/03/2021 6191-1-010 / / [id number] Cement Simplex P Radiopaque Full Dose Bone 10 Pack - [id number] Implanted:Qty: 1 on 01/01/2019 by Tom Pederson MD Left: Knee [employer] 01/03/2021 6191-1-010 / / [id number] Component Triathlon 4 Cemented Posterior Stabilized Femoral - [id number] Implanted:Qty: 1 on 01/01/2019 by Tom Pederson MD Left: Knee [employer] 08/06/2023 5515-F-401 / / [id number] Peg Triathlon Modular Fix Distal Femur Knee - [id number] Implanted:Qty: 1 on 01/01/2019 by Tom Pederson MD Left: Knee [employer] 06/09/2023 5575-X-000 / / [id number] Baseplate Triathlon 3 Cemented Primary Tibial Knee - [id number] Implanted:Qty: 1 on 01/01/2019 by Tom Pederson MD Left: Knee [employer] 07/14/2023 5520-B-300 / / [id number] Component Triathlon 9mm 29mm Asymmetric X3 Ptlar Knee - [id number] Implanted:Qty: 1 on 01/01/2019 by Tom Pederson MD Left: Knee [employer] 10/19/2023 5551-G-299 / / [id number] Triathlon Ps Insert - Size 3 12mm X3 - [id number] Implanted:Qty: 1 on 01/01/2019 by Tom Pederson MD Left: Knee [employer] 02/05/2023 5532-G-312 -E / / [id number] Lp Hex Screw 6.5x30mm Stry-Howm [id number] 78 Implanted:Qty: 1 on 10/19/2021 by Tom Pederson MD Right: Hip [employer] [id number] 07/19/2026 7512-4147 / / WTAE Hip Insrt X3 Trident 0d 36mm E Stry-Howm 567-13-80i-200 921 Implanted:Qty: 1 on 10/19/2021 by Tom Pederson MD Right: Hip [employer] [id number] 03/02/2025 623-10-36E / / [id number] Impl Set Bead 2.0mm Vit Dall Miles Stry-Howm 0790-1-479-114 128 Implanted:Qty: 1 on 10/19/2021 by Tom Pederson MD Right: Hip [employer] [id number] 08/16/2026 6704-0-520 / / [id number] Hip Stem Acco Ii Sz5 132deg Stry-Howm 1950-5000-1526 85 Implanted:Qty: 1 on 10/19/2021 by Tom Pederson MD Right: Hip [employer] [id number] 06/20/2026 8116-7671 / / [id number] Hip Head Delta Biolox 36mm -5 Stry-Howm 4484-1-772-549 190 Implanted:Qty: 1 on 10/19/2021 by Tom Pederson MD Right: Hip [employer] [id number] 08/24/2026 6570-0-036 / / [id number] Tritanium Cluster Hole Shell 54mm Stry-Howm 012-01-86m-772 453 Implanted:Qty: 1 on 10/19/2021 by Tom Pederson MD Right: Hip [employer] [id number] 07/04/2026 702-04-54E / / [id number] Lp Hex Screw 6.5x30mm Stry-Howm 3056-4573-2336 78 Implanted:Qty: 1 on 10/19/2021 by Tom Pederson MD Right: Hip [employer] [id number] 07/19/2026 9213-1984 / / WTAE Procedures Procedure Name Priority [...] Encounter for screening mammogram for breast cancer DEPRESSION SCREENING Routine 09/16/2023 FALLS RISK ASSESSMENT Routine 09/16/2023 DXA BONE DENSITY STUDY 1+ SITS AXIAL SKEL Routine 09/12/2022 3:19 PM EDT Encounter for screening for osteoporosis COLONOSCOPY Routine 05/29/2022 HEPATITIS C SCREENING Routine 03/03/2014 from Last 3 Months or Most Recently Relevant to Health Maintenance Results * (ABNORMAL) Lipid panel with reflex to direct LDL (03/18/2025 10:38 AM EST) Pathologist [facility] Cholesterol 233(H) 0 - 200 mg/dL LAB CHEMISTRY METHOD 03/18/2025 3:39 PM EST [facility] Triglycerides 105 0 - 150 mg/dL LAB CHEMISTRY METHOD 03/18/2025 3:39 PM EST [facility] HDL 88 >=40 mg/dL LAB CHEMISTRY METHOD 03/18/2025 3:39 PM [facility] LDL Calculated 124(H) 0 - 100 mg/dL LAB CHEMISTRY METHOD 03/18/2025 3:39 PM [facility] Comment:Estimated LDL Calcul ated using equation: Total cholesterol - HDL cholesterol - (Triglycerides/5) VLDL Cholesterol Star 21 mg/dL LAB CHEMISTRY METHOD 03/18/2025 3:39 PM EST [facility] Non HDL Chol. (LDL+VLDL) 145(H) <145 mg/dL LAB CHEMISTRY METHOD 03/18/2025 3:39 PM EST [facility] Chol/HDL Ratio 2.6 0.0 - 4.4 LAB CHEMISTRY METHOD 03/18/2025 3:39 PM [facility] Blood Venous blood specimen / Unknown Venipuncture / Unknown 03/18/2025 10:38 AM EST 03/18/2025 10:38 AM EST us Kacey CAMACHO LAB BLOOD ORDERABLES Final Result [facility] [address] [place] [address], * (ABNORMAL) CBC auto differential (03/18/2025 10:38 AM EST) Pathologist [facility] WBC 4.2(L) 4.8 - 10.8 K/mcL LAB HEMETOLOGY METHOD 03/18/2025 12:54 PM [facility] RBC 3.80 3.80 - 4.80 M/[facility] LAB HEMETOLOGY METHOD 03/18/2025 12:54 PM [facility] Hemoglobin 11.7 11.5 - 16.0 g/dL LAB HEMETOLOGY METHOD 03/18/2025 12:54 PM [facility] Hematocrit 34.9(L) 35.0 - 47.0 % LAB HEMETOLOGY METHOD 03/18/2025 12:54 PM [facility] MCV 93.1 79.0 - 98.0 FL LAB HEMETOLOGY METHOD 03/18/2025 12:54 PM [facility] MCH 31.2 27.0 - 32.0 pcg LAB HEMETOLOGY METHOD 03/18/2025 12:54 PM [facility] MCHC 33.5 32.0 - 37.0 g/dL LAB HEMETOLOGY METHOD 03/18/2025 12:54 PM [facility] RDW 13.0 11.0 - 15.0 % LAB HEMETOLOGY METHOD 03/18/2025 12:54 PM [facility] Platelets 273 130 - 400 K/[facility] LAB HEMETOLOGY METHOD 03/18/2025 12:54 PM [facility] MPV 9.4 7.0 - 11.0 FL LAB HEMETOLOGY METHOD 03/18/2025 12:54 PM [facility] NRBC 0.0 <1.0 % LAB HEMETOLOGY METHOD 03/18/2025 12:54 PM [facility] NRBC Absolute 0.00 <0.10 K/[facility] LAB HEMETOLOGY METHOD 03/18/2025 12:54 PM [facility] Neutrophils Relative 60.9 % LAB HEMETOLOGY METHOD 03/18/2025 12:54 PM [facility] Lymphocytes Relative 28.5 % LAB HEMETOLOGY METHOD 03/18/2025 12:54 PM [facility] Monocytes Relative 8.3 % LAB HEMETOLOGY METHOD 03/18/2025 12:54 PM [facility] Eosinophils Relative 1.4 % LAB HEMETOLOGY METHOD 03/18/2025 12:54 PM [facility] Basophils Relative 0.7 % LAB HEMETOLOGY METHOD 03/18/2025 12:54 PM [facility] Immature Granulocytes Relative 0.2 % LAB HEMETOLOGY METHOD 03/18/2025 12:54 PM [facility] Neutrophils Absolute 2.56 1.50 - 7.00 K/mcL LAB HEMETOLOGY METHOD 03/18/2025 12:54 PM [facility] Lymphocytes Absolute 1.20 1.00 - 5.00 K/mcL LAB HEMETOLOGY METHOD 03/18/2025 12:54 PM [facility] Monocytes Absolute 0.35 0.20 - 1.00 K/mcL LAB HEMETOLOGY METHOD 03/18/2025 12:54 PM [facility] Eosinophils Absolute 0.06 0.00 - 0.50 K/mcL LAB HEMETOLOGY METHOD 03/18/2025 12:54 PM [facility] Basophils Absolute 0.03 0.00 - 0.20 K/mcL LAB HEMETOLOGY METHOD 03/18/2025 12:54 PM [facility] Immature Granulocytes Absolute 0.01 0.00 - 0.03 K/mcL LAB HEMETOLOGY METHOD 03/18/2025 12:54 PM [facility] Blood Venous blood specimen / Unknown Venipuncture / Unknown 03/18/2025 10:38 AM EST 03/18/2025 10:38 AM EST us Kacey CAMACHO LAB BLOOD ORDERABLES Final Result [facility] [address] [place] [address], * (ABNORMAL) Comprehensive metabolic panel (03/18/2025 10:38 AM EST) Sodium 132(L) 133 - 145 mmol/L LAB CHEMISTRY METHOD 03/18/2025 3:42 PM EST [facility] Potassium 4.6 3.5 - 5.5 mmol/L LAB CHEMISTRY METHOD 03/18/2025 3:42 PM [facility] Chloride 99 96 - 110 mmol/L LAB CHEMISTRY METHOD 03/18/2025 3:42 PM [facility] CO2 29 21 - 32 mmol/L LAB CHEMISTRY METHOD 03/18/2025 3:42 PM [facility] Anion Gap 4 3 - 11 LAB CHEMISTRY METHOD 03/18/2025 3:42 PM [facility] Glucose 105(H) 70 - 100 mg/dL LAB CHEMISTRY METHOD 03/18/2025 3:42 PM [facility] BUN 16 5 - 25 mg/dL LAB CHEMISTRY METHOD 03/18/2025 3:42 PM [facility] Creatinine 0.75 0.50 - 1.10 mg/dL LAB CHEMISTRY METHOD 03/18/2025 3:42 PM [facility] eGFR 86 >=60 mL/min/1. 73m2 LAB CHEMISTRY METHOD 03/18/2025 3:42 PM [facility] Comment:Calculation based on the Chronic Kidney Disease Epidemiology Collaboration (CKD-EPI) equation refit without adjustment for race. BUN/Creatinine Ratio 21.3 LAB CHEMISTRY METHOD 03/18/2025 3:42 PM [facility] Calcium 9.3 8.5 - 10.5 mg/dL LAB CHEMISTRY METHOD 03/18/2025 3:42 PM [facility] AST (SGOT) 22 10 - 42 unit/L LAB CHEMISTRY METHOD 03/18/2025 3:42 PM [facility] ALT (SGPT) 29 10 - 60 unit/L LAB CHEMISTRY METHOD 03/18/2025 3:42 PM [facility] Alkaline Phosphatase 71 42 - 121 unit/L LAB CHEMISTRY METHOD 03/18/2025 3:42 PM [facility] Total Protein 6.7 6.0 - 8.0 g/dL LAB CHEMISTRY METHOD 03/18/2025 3:42 PM [facility] Albumin 4.1 3.2 - 5.0 g/dL LAB CHEMISTRY METHOD 03/18/2025 3:42 PM [facility] Total Bilirubin 0.4 0.0 - 1.4 mg/dL LAB CHEMISTRY METHOD 03/18/2025 3:42 PM [facility] Blood Venous blood specimen / Unknown Venipuncture / Unknown 03/18/2025 10:38 AM EST 03/18/2025 10:38 AM EST Kacey CAMACHO LAB BLOOD ORDERABLES Final Result [facility] [address] [place] [address], [place] [phone] * MG Mammo Digital Screening w Ellis bilat (10/09/2024 11:09 AM EDT) Anatomical Region Laterality Modality Breast Bilateral Mammography 10/09/2024 3:10 PM EDT Impressions 10/09/2024 3:14 PM EDT No mammographic evidence for malignancy. BI-RADS CATEGORY: 1 - NEGATIVE RECOMMENDATION: Screening bilateral mammogram is recommended in 1 year. Mammo Location: Center Radiology Department, [address] [place] [address], [address], . -------- FINAL REPORT -------- Dictated By: Celia Vivas Dictated Date: 10/09/2024 15:10 ET Assigned Physician: Celia Vivas Reviewed and Electronically Signed By: Celia Vivas Signed Date: 10/09/2024 15:14 ET Workstation ID: [id number] Transcribed By: Self Edit Transcribed Date: 10/09/2024 [...] is recommended in 1 year. Mammo Location: [facility], [address] [place] [address], [address], . -------- FINAL REPORT -------- Dictated By: Celia Vivas Dictated Date: 10/09/2024 15:10 ET Assigned Physician: Celia Vivas Reviewed and Electronically Signed By: Celia Vivas Signed Date: 10/09/2024 15:14 ET Workstation ID: [id number] Transcribed By: Self Edit Transcribed Date: 10/09/2024 15:10 ET Karen Hart MD IMG BI PROCEDURES Irma l Result * Falls Risk Assessment (09/16/2023) Falls Risk Assessment ABSTRACTED Historical Provider MD HEALTH MAINTENANCE Final Result * Depression Screening (09/16/2023) Depression Screening ABSTRACTED Result [facility] Historical Provider HEALTH MAINTENANCE Final Result * [...] (World Health Organization Fracture Risk Assessment) [facility] Department of Internal Medicine recommends using [...] (World Health Organization Fracture Risk Assessment) [facility] Department of Internal Medicine recommendsusing National [...] PROCEDURES Final R esult * Colonoscopy (05/29/2022) Pathologist [facility] Colonoscopy no interpretation , abstracted Anatomical Region Laterality Modality Other Historical Provider HEALTH MAINTENANCE Final Result * Hepatitis C Screening (03/03/2014) [facility] Hepatitis C Screening ABSTRACTED Historical Provider HEALTH MAINTENANCE Final Result from Last 3 Months or Most Recently Relevant to Health Maintenance Insurance MEDICARE [facility] Advance Directives Documents on File Type Date Recorded Patient Inspector Toys Expl anation Health Care Decision (hx) 06/24/2019 [...] (hx) 06/24/2019 AD BOND DIRECTIVE Care Teams Long Term Acute Care Registered Nurse Relationship Specialty Start Date End Date Karen Hart MD [address] [place] [address] PCP - General Internal Medicine 11/04/21
--- OUTSIDE RECORDS SUMMARY | 2025-05-05 12:26 | XMS_ITS | Clinical Summary ---
Author Organization [facility] Prior to 10/03/[address] [place] [address] Care Team Providers Care Nuclear Fuels Research Engineer Name Role Phone Kacey Parra PA-C Primary [...] Comments Cancer Brother PANCREATIC Heart disease Brother [place] with stent Heart disease Father CABG Leukemia Father Heart disease Mother CHF Cancer Sister 1 BREAST Arthritis Sister 2 Heart disease Sister 2 MN X 2 Hyperlipidemia Sister 2 GI problems [...] this topic Medical Devices Implanted Type Area Grain Shoveler Device Identifier Shelf Expiration Date Model / Serial / Lot Cement Simplex P Radiopaque Full Dose Bone 10 Pack - 894503 - [id number] Implanted:Qty: 1 on 01/01/2019 by Tom Pederson MD at [facility] Left: Knee [employer] 01/03/2021 6191-1-010 / / [id number] Cement Simplex P Radiopaque Full Dose Bone 10 Pack - 819666 - [id number] Implanted:Qty: 1 on 01/01/2019 by Tom Pederson MD at [facility] Left: Knee [employer] 01/03/2021 6191-1-010 / / [id number] Component Triathlon 4 Cemented Posterior Stabilized Femoral - 293733 - [id number] Implanted:Qty: 1 on 01/01/2019 by Tom Pederson MD at [facility] Left: Knee [employer] 08/06/2023 5515-F-401 / / [id number] Peg Triathlon Modular Fix Distal Femur Knee - 318723 - [id number] Implanted:Qty: 1 on 01/01/2019 by Tom Pederson MD at [facility] Left: Knee [employer] 06/09/2023 5575-X-000 / / [id number] Baseplate Triathlon 3 Cemented Primary Tibial Knee - 236421 - [id number] Implanted:Qty: 1 on 01/01/2019 by Tom Pederson MD at [facility] Left: Knee [employer] 07/14/2023 5520-B-300 / / [id number] Component Triathlon 9mm 29mm Asymmetric X3 Ptlar Knee - 430504 - [id number] Implanted:Qty: 1 on 01/01/2019 by Tom Pederson MD at [facility] Left: Knee [employer] 10/19/2023 5551-G-299 / / [id number] Triathlon Ps Insert - Size 3 12mm X3 - 069074 - [id number] Implanted:Qty: 1 on 01/01/2019 by Tom Pederson MD at [facility] Left: Knee [employer] 02/05/2023 5532-G-312 -E / / [id number] Lp Hex Screw 6.5x30mm Stry-Howm 5241-7121-5885 78 - [id number] Implanted:Qty: 1 on 10/19/2021 by Tom Pederson MD at [facility] Right: Hip [employer] [id number] 07/19/2026 8175-6816 / / WTAE Hip Insrt X3 Trident 0d 36mm E Stry-Howm 499-42-60n-200 921 - [id number] Implanted:Qty: 1 on 10/19/2021 by Tom Pederson MD at [facility] Right: Hip [employer] [id number] 03/02/2025 623-10-36E / / [id number] Impl Set Bead 2.0mm Vit Dall Miles Stry-Howm 5778-7-420-114 128 - [id number] Implanted:Qty: 1 on 10/19/2021 by Tom Pederson MD at [facility] Right: Hip [employer] [id number] 08/16/2026 6704-0-520 / / [id number] Hip Stem Acco Ii Sz5 132deg Stry-Howm 9328-8095-3172 85 - [id number] Implanted:Qty: 1 on 10/19/2021 by Tom Pederson MD at [facility] Right: Hip [employer] [id number] 06/20/2026 5088-4005 / / [id number] Hip Head Delta Biolox 36mm -5 Stry-Howm 1527-0-363-549 190 - [id number] Implanted:Qty: 1 on 10/19/2021 by Tom Pederson MD at [facility] Right: Hip [employer] [id number] 08/24/2026 6570-0-036 / / [id number] Tritanium Cluster Hole Shell 54mm Stry-Howm 094-29-81f-772 453 - [id number] Implanted:Qty: 1 on 10/19/2021 by Tom Pederson MD at [facility] Right: Hip [employer] [id number] 07/04/2026 702-04-54E / / [id number] Lp Hex Screw 6.5x30mm Stry-Howm 2942-0529-0998 78 - [id number] Implanted:Qty: 1 on 10/19/2021 by Tom Pederson MD at [facility] Right: Hip [employer] [id number] 07/19/2026 3193-9331 / / WTAE Advance Directives For more information, please contact: [phone] Latest Code Status on File Code Status [...] way: discussion with patient . Care Teams Nuclear Fuels Research Engineer Relationship Specialty Start Date End Date Kacey Parra PA-C [address] [place] [phone] PCP - General Medical Services 10/12/21
--- OUTSIDE RECORDS SUMMARY | 2025-05-05 12:26 | XMS_ITS | Clinical Summary ---
Author Organization [facility] Address [address] [place] [phone] Phone Care Team Providers Care Tank Erector Name Role Phone Kacey Parra Primary Care [...] file Insurance MEDICARE PART A & B [facility] MEDEX SUPPLEMENT MEDICARE PART A & B Member Subscriber Plan / Payer (Ef fective 2021-Present) Name:Esha Srivastava Member ID:[id number] Relation to Subscriber:Self Name:Esha Srivastava Subscriber ID:[id number] Payer ID:[id number] Group ID:Not on file Type:Medicare Address: [employer] [address] [place] [phone] [employer] MEDEX SUPPLEMENT MEDICARE PART A & B Member Subscriber Plan / Payer ( fective 2021-) Name:Esha Srivastava Member ID:[id number] Relation to Subscriber:Self Name:Esha Srivastava Subscriber ID:[id number] Payer ID:[id number] Group ID:Not on file Type:Medicare Address: [employer] [address] [place] [phone] [employer] MEDEX SUPPLEMENT MEDICARE PART A & B [employer] MEDEX SUPPLEMENT MEDICARE PART A & B [employer] MEDEX SUPPLEMENT MEDICARE PART A & B Member Subscriber Plan / Payer (Ef fective 2021-) Name:Esha Srivastava Member ID:[id number] Relation to Subscriber:Self Name:Esha Srivastava Subscriber ID:[id number] Payer ID:[id number] Group ID:Not on file Type:Medicare Address: [employer] [id number] [employer] MEDEX SUPPLEMENT MEDICARE PART A & B [employer] MEDEX SUPPLEMENT MEDICARE PART A & B [employer] MEDEX SUPPLEMENT MEDICARE PART A & B [employer] MEDEX SUPPLEMENT Care Teams Tank Erector Relationship Specialty Start Date End Date Kacey Parra PA [address] [place] [phone] PCP - General Unknown Provider Specialty 10/25/21 Additional Source Comments The information contained in this document represents components of the legal health record. It is not the complete legal health record.[facility]
--- OUTSIDE RECORDS SUMMARY | 2025-05-05 12:26 | XMS_ITS | Encounter Summary ---
Author Organization [facility] [place] [address] Care Team Providers Care Ese Teacher Name Role Phone Karen Hart MD Primary Care Provider Encounter Details Date Type Department Care Team (Late st Contact Info) Description 03/25/2025 Results Follow-Up Adult [facility] [address] [place] [address] Kacey Parra PA [address] [place] [address] Social History Tobacco Use Types Packs/Day Years [...] documented as of this encounter Care Teams Ese Teacher Relationship Specialty Start Date End Date Karen Hart MD [address] [address] PCP - General Internal Medicine 11/04/21 documented as of this encounter
--- OUTSIDE RECORDS SUMMARY | 2025-05-05 12:26 | XMS_ITS | Clinical Summary ---
Author Organization [facility] Address [address] [place] [id number] Care Team Providers Care Sand Slinger Name Role Phone Kacey Villa PA-C Primary Care Provider Francesca jiménezailzenia Allergies Active Allergy Reactions Criticality Noted Date Comments Scopolamine Nausea Only,Other (S ee Comments) Medium 01/01/2019 Double vision Medications atorvastatin (LIPITOR) 20 MG tablet take 1 tablet (20 mg total) by mouth one time each day 5 Active celeCOXIB (CeleBREX) 200 MG capsule take 1 capsule by mouth 1 time each day. 5 Active gabapentin (NEURONTIN) 300 MG capsule 1 capsule by Mouth/Oral Cavity route 3 times a day. 5 Active LORazepam (ATIVAN) 1 MG tablet TAKE 1 TABLET BY MOUTH AT NIGHT AND ONE TABLET ONE HOUR PRIOR TO THE PROCEDURE 5 Active sertraline (ZOLOFT) 100 MG tablet Take 100 mg by mouth. 5 Active OMEprazole (PriLOSEC) 20 MG capsule Take by mouth. Acti ve Active Problems No known active problems Encounters Date Type Department Care Team Description 04/05/2025 8:45 AM EST Office Visit [facility] [address], [place] [address] Abhishek Gordon MD Abnormal auditory perception of both ears (Primary Dx); Impacted cerumen of right ear; Non-seasonal allergic rhinitis due to pollen from Last 3 Months Immunizations Immunization Administration Dates Next Due Covid-19 MRNA Vaccine - Pfiz er 12+ (Purple Cap) 03/10/2021,05/16/2020,04/25/2020 Influenza High-Dose Quadrivalent,(FLUZONE HIGH-DOSE), Perservative Free IM 0.7 mL 65 years and older 02/16/2023 Influenza High-Dose Trivalen t,(FLUZONE HIGH-DOSE), Perservative Free IM 0.5 mL 65 years and older 02/17/2024,02/21/2022 Influenza Virus Trivalent Sp lit Vaccine (MDV) IM 02/05/2015,02/09/2013,01/30/2012,03/04,02/01/2008,02/05/2007 PPD Test 06/26/2005 Pneumococcal Conjugate 20-Valent 09/15/2024 Pneumococcal Polysaccharide 23-Valent 06/15/1999 RSV, Recombinant, Protein Prado bunit RSV Prefusion F (AREXVY), Adjuvant Recon 0.5 mL PF 02/16/2023 Tdap 05/16/2011 Zoster Vaccine Recombinant (Shingrix) 02/08/2021 Social History Tobacco Use Types Packs/Day Years Used Date Smoking Tobacco: Never Passive Smoke Exposure: Never Smokeless Tobacco: Never AUDIT-C Answer Date Recorded Frequency of Alcohol Consumption Not on file 04/05/2025 Q2: How many drinks containi ng alcohol do you have on a typical day when you are drinking? Patient does not drink Frequency of Binge Drinking Not on file 05/2024 Comments Unknown Sex and Gender Information Value Date Recorded Sex Assigned at Not on file Legal Sex Female 9:56 AM EST Gender Identity Not on file Sexual Orientation Not on file Last Filed Vital Signs Vital Sign Reading Time Taken Comments Blood Pressure - - Pulse - - Temperature - - Respiratory Rate - - Oxygen Saturation - - Inhaled Oxygen Concentration - - Weight 64.9 kg (143 lb) 04/05/2025 8:38 AM EST Height 162.6 cm (5' 4 ) 04/05/2025 8:38 AM EST Body Mass Index 24.55 04/05/2025 8:38 AM EST Plan of Treatment Health Maintenance Due Date Last Done Comments Advance Care Planning 1955 Hepatitis C Virus Screening 1955 Mammogram 1995 Colonoscopy 2000 DXA Bone Density (Females,Ages 65 and older) 2020 Zoster (Shingles) Vaccine (2 of 2) 04/05/2021 02/08/2021 DTaP/Tdap/Td Vaccines (2 - Td or Tdap) 05/16/2021 05/16/2011 Influenza Vaccine 12/04/2024 02/17/2024, , 02/21/2022, Additional history exists COVID-19 Vaccine ( season) 2025 03/10/2021, 05/16/2020, 04/25/2020 RSV Vaccine 50 years and older and Patients Completed 02/16/2023 Pneumococcal Vaccines 50+ Completed 09/15/2024, 02/2000 Hepatitis B Vaccines Aged Out No long er eligible based on patient's age to complete this topic Insurance MEDICARE PART A & [place] [id number] Care Teams Sand Slinger Relationship Specialty Start Date End Date Kacey Villa PA-C PCP - General 04/05/25
== END 2025-05-05 10:56 | disposition home or self-care (01) ==
LOC: HO.HMGAL 10:55
PROVIDERS: PCP Physician Assistant Medical; Visit Provider Registered Nurse Emergency
DX: J30.89 Other allergic rhinitis (principal)
CPT/HCPCS: 95117; 95165